=== PATIENT | female | born 2000 | race Caucasian/White ===

== ENCOUNTER 2022-07-27 08:22 | Emergency (ER) | payer MEDICAID, SELFPAY ==
--- NOTE | 2022-07-27 08:25 | W.ED.GENAD ---
Discharge Plan Disposition Patient Disposition: Home Condition: Improving Discharge Details Clinical Impression: Anxiety, Panic attack Primary Care Provider: Cass Salvador ED Provider: Rick Ponce Home Meds and New Rx's Prescriptions: Continued sumatriptan succinate [Imitrex] 25 mg Tablet 25 mg PO DIRECTED famotidine 20 mg Tablet 20 mg PO DAILY ondansetron 4 mg Tablet,Disintegrating 4 mg PO Q6H PRN Discharge Instructions Instructions: Anxiety (ED), Panic Attack (ED) Additional Instructions: Please follow the instructions given to you by the mental health team. Please watch for new or worsening symptoms and return to the ER for any concerns. Lastly, contact your primary care provider on Saturday to discuss your ER visit need for outpatient reevaluation Medical Decision Making This is a 22-year-old female who presents via EMS for anxiety and a panic attack while driving today as today is the 1 year anniversary of her father's . She denies any other acute medical concerns or complaints. Denies SI or HI. Clinically she is tearful but able to speak in full sentences and during my HPI appears to be calming down. She appears nontoxic. Plan is to request a mental health evaluation. I will not obtain any laboratory values as there is no clear indication and I do not believe that it would change the overall disposition and her care. Health evaluation completed, please see their note. Plan to discharge now, they will check in with her over the weekend, and we will set her up with outpatient resources, Saturday. Patient and family comfortable with this plan. Standard discharge and return precautions were provided. Patient understands, is agreeable to this plan, and has no additional questions or concerns upon discharge. This documentation was generated using [employer] system, please disregard any oddities of phrase or misspellings. Sign Out No HPI General Mode of arrival: EMS. Date/Time Provider Initiated Documentation: 07/27/22 08:25. Limitations to Documentation: no limitations. Information obtained by: patient and EMS. HPI Narrative: This is a 22-year-old female presenting via EMS for anxiety attack. Patient states that it is the 1 year anniversary of her father's . She was driving to work, became tearful and anxious, had a panic attack, subsequently called EMS for evaluation. She reports overall she is feeling somewhat better now but is still tearful. Reports a history of a counselor roughly 1 year ago but those services have discontinued. She denies recent illness or trauma. Denies SI or HI. She reports that she feels safe. Related Data Home Medications Medication Instructions Recorded Confirmed famotidine 20 mg tablet 20 mg PO DAILY 07/27/22 07/27/22 ondansetron 4 mg disintegrating 4 mg PO Q6H PRN 07/27/22 07/27/22 tablet sumatriptan succinate 25 mg tablet 25 mg PO DIRECTED 07/27/22 07/27/22 (Imitrex) Allergies Allergy/AdvReac Type Severity Reaction Status Date / Time ketamine Allergy Unverified 07/27/22 08:34 Review of Systems Constitutional Constitutional: Denies fever(s) Cardiovascular Cardiovascular: Denies chest pain and Denies dyspnea Respiratory Respiratory: Denies dyspnea Integumentary/Breasts Skin/Breast: Denies rash Psychiatric Psychiatric: Reports anxiety, Reports depression, Denies homicidal ideation and Denies suicidal ideation PFSH All Active Problems (Updated 07/27/22 @ 10:02 by CLEMENCIA Louie) Anxiety (Chronic) Panic attack (Acute) Social History Smoking/Tobacco Use Status: Former Tobacco Use Smoking risk assessment performed?: Yes Alcohol Intake: current Alcohol Intake frequency: holidays/special occasions only Drug use: Daily Substance use type: marijuana Do you feel safe at home: Yes Do you feel safe in your relationship?: Yes Exam Const General: cooperative, healthy appearing, no acute distress and anxious (Tearful) Orientation: alert, awake and oriented x3 [facility] Head: normal to inspection, normocephalic and atraumatic Face and sinus: normal facial exam Mouth: moist mucous membranes Eyes General: appearance normal, both eyes and all related structures Conjunctivae: conjunctivae normal Neck Neck: normal visual inspection, full ROM, no meningeal signs, trachea midline and supple Resp Effort & Inspection: normal respiratory effort and able to speak in complete sentences Auscultation: clear to auscultation bilaterally Cardio Rate: regular rate Rhythm: regular rhythm Skin General skin exam: no rashes or lesions noted Neuro General: patient alert, patient awake, patient oriented x3, moves all extremities and no focal motor deficits Cognition: normal cognition Speech: speech normal Gait: normal gait Motor: muscle tone normal throughout Sensory Exam: no sensory deficits noted Extrem General: normal to inspection, full ROM and no pedal edema Psych Appearance: grossly normal Mental Status: mental status grossly normal Speech and Movement: speech and movement normal Mood: anxious mood Affect: sad Attitude: cooperative Thought Process: normal Thought Content: normal Insight: insight good Judgment: judgment good
[2022-07-27 08:26] VITALS: BP 135/85; PULSE 99; RESP 28; TEMP 36.9; O2SAT 98
[2022-07-27 08:32] VITALS: RESP 28
--- NOTE | 2022-07-27 10:17 | PDOC.MHCN ---
Date of service: 07/27/22 Time of Service: 10:18 PHQ-9 Over the last 2 weeks, how often have you been bothered by any of the following problems? 1. Little interest or pleasure in doing things: more than half the days 2. Feeling down, depressed, or hopeless: not at all 3. Trouble falling or staying asleep, or sleeping too much: not at all 4. Feeling tired or having little energy: several days 5. Poor appetite or overeating: not at all 6. Feeling bad about yourself - or that you are a failure or have let yourself and your family down: not at all 7. Trouble concentrating on things, such as reading the newspaper or watching television: several days 8. Moving or speaking so slowly that other people could have noticed? - Or the opposite - being so fidgety or restless that you have been moving around a lot more than usual: several days 9. Thoughts that you would be better off or of hurting yourself in some way: not at all Total score: 5 If you checked off any problems, how difficult have these problems made it for you to do your work, take care of things at home, or get along with other people?: somewhat difficult Source: Developed by Drs. Art Breen, Alisa Carias, Tim Bernard and colleagues, with an educational nita from [employer]. Suicide Severity Rate CSSRS Have you wished you were or wished you could go to sleep and not wake up?: No Have you actually had any thoughts of killing yourself?: No CSSRS4 Was this within the past three months?: No Screening Score Total Score: 0 Screening: Negative Mental Health Emergency Note Release [facility] release signed:: Yes Reason for Visit Client arrived to [facility] ED on 07.27.2022 after experiencing a panic attack on her way into work thinking about the anniversary of her father's passing. Client stated he passed as a result of diverticulitis and acute leukemia and as he did during the COVID pandemic she was not able to say goodbye to him. In the last 2 weeks has the pt presented for ES prior to today?: No Client Information Client is: New Well Housed: Yes Non Suicidal Self Injury Current: No History: No Safety Risk/Harm to Self or Others Current Ideation to Harm Self or Others: No Risk: Does risk to harm exist?: No Duty to warn indicated: No Asssessment/Mental Status Appearance: Well groomed Attitude: Cooperative and Friendly Behavior: Unremarkable Speech: Normal Affect: Flat and Cogruent with mood Mood: Sad and Anxious Thought process: Goal directed Hallucinations: No Delusions: No Attention: Unremarkable Perception: Not impaired Orientation: Fully orientated Memory: Intact Insight: Good Judgement: Good Neurovegetative Symptoms Sleep: No change Appetitie: No change Interests: Decrease Energy: No change Libido: Not applicable Substance Use: Do you use nicotine?: No Have you used substances in the last 7 days?: No Additional Issues: Assaultive/Threatening Behavior: No Medical Concerns: No Client engaged in active self harm w/weapon: No Threatening to run away: No Child reported abuse/neglect: No Voluntarily presenting for services: Yes Domestic violence is a concern: No Extreme Psychosis or extreme behavior is present: No Impression Client is a 22 year old, single, female who lives with her boyfriend in [place] [facility] [facility] and works at [employer] in [place] [facility]. She is attending on [employer]. Client presented to he ED due to experiencing a panic attack which was brought on by thoughts about her father's 1 year anniversary of his . She has no history of anxiety or panic attacks per her report. Her sudden onset of a panic attack suggest a generalized anxiety disorder. Client is new to [facility] and [facility] and was open to intake and referrals. Resources Reosurces reviewed and given:: [facility] and [facility] Plan/Disposition Recommended Disposition: [facility] Services [facility] Services: Therapy. Plan: Client is open to restarting counseling and having this clinician do a referral. She will do daily check in calls to [facility] through the weekend with an assessment on Saturday to see if she would like to continue them. Person reported agreement to plan: Yes Reports/communication Outcome discussed with: ED/Personnel
--- OUTSIDE RECORDS SUMMARY | 2022-07-27 10:49 | XMS_ITS | Encounter Summary ---
:2000 Author Organization [facility] [place] [address] Care Team Providers Name Role Phone Russell Oneil MD Primary Care Provider Encounter Details Date Type Department Care Team Description 05/26/2020 Refill Dermatology at [facility] Charo Ramirez, BAKERY SALES CLERK [address] [place] [address] Social History Tobacco Use Types Packs/Day Years Used Date Smoking Tobacco: Never Smokeless Tobacco: Former Comments: no smoke exposure Alcohol Use Standard Drinks/Week Comments No 0 (1 standard drink = 0.6 oz pure alcoho l) Sex Assigned at Date Recorded Not on file documented as of this encounter Plan of Treatment Not on filedocumented as of this encounter Visit Diagnoses Not on filedocumented in this encounter Care Teams Credit Rating Inspector Relationship Specialty Start Date End Date Russell Oneil MD PCP - General 03/29/14 02/22/[address] [place] [id number] documented as of this encounter
--- OUTSIDE RECORDS SUMMARY | 2022-07-27 10:49 | XMS_ITS | Encounter Summary ---
:2000 Author Organization [facility] [place] [address] Care Team Providers Name Role Phone Russell Oneil MD Primary Care Provider Reason for Visit Reason Comments Follow-up Encounter Details Date Type Department Care Team Description 10/28/2018 Office Visit Dermatology at [facility], Acne vu lgaris; Sully GOINS Ruptured epidermal cyst [address] [facility] D[facility]MATOLOG[facility] [place], [place] [id number] [phone] Social History Tobacco Use Types Packs/Day Years Used Date Smoking Tobacco: Never Smokeless Tobacco: Former Comments: no smoke exposure Alcohol Use Standard Drinks/Week Comments No 0 (1 standard drink = 0.6 oz pure alcoho l) Sex Assigned at Date Recorded Not on file documented as of this encounter Progress Notes [facility] MD - 10/28/2018 1:00 PM EST Problem: 1. Follow-up acne vulgaris controlled now with Bactrim double strength 1 p.o. once daily 2. History of furuncles axillary vaults intramammary chest 3. Status post 5-month course of isotretinoin completed September 2015 4. 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 She was seen by Dr. Oneil this morning after we had yesterday set up today's appointment for an I&D at 1 PM. He is prescribed an antibiotic for her to take, Bactrim. Physical examination reveals a painful enlarged indurated follicular cyst in the left axillary vault. Assessment plan: Ruptured follicular cyst left axillary vault 1. After obtaining consent site was anesthetized and an I&D performed. Copious amounts of purulent material were drained. Patient tolerated well 2. Recommend the patient take Bactrim double strength 1 p.o. twice daily return to clinic in 2 weeksfor repeat check. 3. Wound care instructions and supplies given. Continue spironolactone. CC: Russell Oneil MD documented in this encounter Plan of Treatment Not on filedocumented as of this encounter Visit Diagnoses Diagnosis Acne vulgaris Other acne Ruptured epidermal cyst Sebaceous cyst documented in this encounter Care Teams Tip Fixer Relationship Specialty Start Date End Date Russell Oneil MD PCP - General 03/29/14 02/22/22 [address] [place] [address] documented as of this encounter
--- OUTSIDE RECORDS SUMMARY | 2022-07-27 10:49 | XMS_ITS | Encounter Summary ---
:2000 Author Organization [facility] [place] [address] Care Team Providers Name Role Phone Russell Oneil MD Primary Care Provider Encounter Details Date Type Department Care Team Description 04/24/2021 Office Visit Allergy at [facility] Grazyna Giang Anaphylaxis, initial [facility] [place] [address] ALLERGY DEPT [phone] [place] [id number] Social History Tobacco Use Types Packs/Day Years Used Date Smoking Tobacco: Never Smokeless Tobacco: Never Comments: no smoke exposure Alcohol Use Standard Drinks/Week Comments No 0 (1 standard drink = 0.6 oz pure alcoho l) Sex Assigned at Date Recorded Not on file documented as of this encounter Last Filed Vital Signs Vital Sign Reading Time Taken Comments Blood Pressure 130/88 04/24/2021 3:19 PM EDT Pulse 64 04/24/2021 3:19 PM EDT Temperature - - Respiratory Rate - - Oxygen Saturation 100% 04/24/2021 3:19 PM EDT Inhaled Oxygen Concentration - - Weight - - Height - - Body Mass Index - - documented in this encounter Patient Instructions Patient InstructionsGrazyna Giang MD - 04/24/2021 4:00 PM EDT Pataday 0.1% 1 drop in each eye up to twice a day. documented in this encounter Progress Notes Grazyna Giang MD - 04/24/2021 4:00 PM EDT [facility] Section of Allergy and Clinical Immunology Date of Service: 04/24/21 Primary Care Provider: Russell Oneil MD Patient Age: 20 y.o. 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 She reports nasal congestion in the spring and fall. Her mouth and tongue sometimes become itchy. She was recently bit by a cat and is currently undergoing rabies vaccines. She had her first dose onSaturday, second on Saturday, then will receive a 3rd duncan this Saturday, then last dose next Saturday. She received both doses of Pfizer vaccine, December 14 and January 04, without issues. She recently went to [place] with a friend. She ate steak, potato with christensen and cheese, moo slaw, broccoli soup. Mouth and face started getting itchy, then face puffy. She took Benedryl right assoon itchy. It took about 2-3 ours for symptoms to improve. No alcohol. No NSAIDs. She has moved into her new place and does not feel as congested. Her horses are now at her uncle's place, dogs and cats in parents' home. She rides the horses once every 2 weeks and denies symptoms. She reported a reaction to ketamine when she was 14 years old. She went to the ED for stitches and she reports that she stopped breathing with ketamine. She recalled bruising from CPR. She has tolerated MAC sedation with propofol December 31, 2016 for EGD and colonoscopy. Her tongue, lip and palatae becomes itchy with ingestion of tomatoes (raw>cooked), blood oranges,navel oranges. Raw carrots are fine. At [facility], Skin prick positive to D. Farinae (dust mite), cat, AP dog, cockroach, grass pollen, tree pollen (including [place] and poplar), nettle weed pollen, molds (Aspergillus and Cladosporium), rabbit,feathers. Past Medical History: Diagnosis Date ??? Allergic state ketamine ??? Chronic pelvic pain in female 10/14/2016 ??? Eczema 10/07/2016 ??? 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 Headache ??? Hirsutism 10/14/2016 Excess hair on chest and linea alba, but face is spared. ??? Pneumonia ??? Vision abnormalities Past Surgical History: Procedure Laterality Date ??? KNEE CARTILAGE SURGERY Left ??? PRO COLONOSCOPY, BIOPSY N/A 12/31/2016 COLONOSCOPY FLEXIBLE, WITH BX (WRVU 3.66) performed by Jennifer Lion MD at [facility] END[facility]COPY ??? PRO COLONOSCOPY, DIAGNOSTIC N/A 12/31/2016 PEDIATRIC COLONOSCOPY performed by Jennifer Lion MD at [facility] ??? PRO UPPER GI ENDOSCOPY, DIAGNOSTIC N/A 12/31/2016 EGD, UPPER GI ENDOSCOPY performed by Jennifer Lion MD at [facility] ??? WRIST SURGERY Outpatient Medications Marked as Taking for the 04/24/21 encounter (Office Visit) with Grazyna Giang MD Medication Sig Dispense Refill ??? sertraline (Zoloft) 50 mg Tablet TAKE 1 TABLET BY MOUTH DAILY ??? norelgestrom-ethinyl estradiol (ORTHO EVRA) 150-35 mcg/24 hr Patch Weekly Use as directed 3 patch 3 ??? triamcinolone (KENALOG) 0.1 % Cream Apply to eczema rash twice daily as needed until clear 15 g 1 ??? polyethylene glycol (MIRALAX) 17 gram/dose Powder 0 Allergies Allergen Reactions ??? Ketamine ??? Pollen Extracts Other (See Comments) Family History Problem Relation Age of Onset ??? Depression Mother ??? Heart Disease Mother PVCs ??? Hearing Loss Mother ??? Allergic Rhinitis Mother ??? Urticaria Mother ??? Food Allergy Mother ??? Hyperlipidemia Father ??? Hypertension Maternal Grandfather ??? Obesity Maternal Grandfather ??? Cancer Maternal Grandmother Brain ??? Heart Disease Maternal Grandmother ??? Hypertension Maternal Grandmother ??? Substance Use Disorder Maternal Grandmother ??? Diabetes Paternal Grandmother ??? Hypertension Paternal Grandmother ??? Allergic Rhinitis Brother ??? Ulcerative Colitis Neg Hx ??? Crohn Disease Neg Hx ??? Autoimmune Disorder Neg Hx ??? Thyroid Disease Neg Hx Social History Tobacco Use ??? Smoking status: Never Smoker ??? Smokeless tobacco: Never Used ??? Tobacco comment: no smoke exposure Vaping Use ??? Vaping Use: Never used Substance Use Topics ??? Alcohol use: No ??? Drug use: No Status: Single. Review of Systems: General: denies any fever, fatigue, chills, unintentional weight gain, night sweats. Eyes: +itchy, +red eyes. Denies any ocular discharge, blurriness, dryness. Ears: denies any pain, pressure, fullness, +pruritus, +tinnitus Nose: denies nasal congestion, post nasal drip, +sneezing, +nosebleeds, snoring. Denies a history ofnasal polyps, loss of smell Mouth/throat: denies loss of taste, mouth sores, bad breath, itchy mouth, itchy throat, difficulty swallowing. GI: denies any heartburn or reflux, food regurgitation, nausea/vomiting, diarrhea, +abdominal pain, +constipation. Respiratory: +cough, wheezing, shortness of breath, trouble with exercise, snoring, hemoptysis. Cardiovascular: denies any chest pain, arrhythmia. : +irregular periods. denies any difficulty with urination, dysuria, hematuria, kidney stones. Skin: +eczema, hives and angioedema MSK: denies any muscle aches, joint pains, bone pain. Neurologic: +headaches, +numbness, weakness, stroke or +LOS. Psychiatric: denies any anxiety or depression. Endocrine: Denies any heat or cold intolerance, excessive thirst or urination. Hematologic: +easy bruising Environmental History: Pets in the home: dogs (5), cats (4) and horse 3. She is in the process of renovating her home. Objective: BP 130/88 Pulse 64 SpO2 100% No flowsheet data found. Wt Readings from Last 3 Encounters: 01/19/21 85.7 kg (188 lb 15 oz) 01/17/21 85.7 kg (188 lb 15 oz) 01/10/21 85.7 kg (189 lb) Gen: awake, alert, no acute distress Head: normocephalic, atraumatic EYES: Conjunctiva not injected or icteric. No discharge. No eyelid edema. ENT: Nasal passages show normal mucosa, edematous turbinates bilaterally, no lesions. OP mucosa wellhydrated, clear without erythema. No lesions or exudates. No visible OP edema. NECK: supple, symmetric, no masses, trachea midline LYMPH: no submandibular, cervical, or supraclavicular LAD CVS: RRR LUNGS: CTAB, no wheezing or crackles, breathing unlabored ABD: non-distended, bowel sounds present SKIN: no rashes, normal color EXTREMITIES: warm and well-perfused, normal bulk, symmetric ROM. NEURO: EOMI, no dysarthria PSYCH: normal grooming, appropriate mood and affect, normal volume/quantity/tone of speech, normal thought process and content Assessment and Plan: Ivon Mcqueen is a 20 y.o. woman with a history of rashes seen for follow-up visit regarding allergic rhinoconjunctivitis. She recently had an episode of facial swelling during dinner. I have asked her to find out the ingredients in the meal for us to review. For nasal congestion and rhinitis, I recommend continuing Flonase Sensimist 2 sprays per nostril daily. For allergic conjunctivitis, she may used Pataday 0.1% 1 drop in each eye up to twice a day (available over the counter) For environmental allergies, we reviewed allergen avoidance, including use of dust mite encasings onthe mattress and pillow and washing the bed linens weekly in hot water, keeping pets out of the bedroom and using a HEPA filter in the bedroom, showering and washing the hair before bed, keeping windows closed, and avoiding drying laundry outdoors during pollen seasons. All questions were answered, and patient expressed understanding of the plan. Thank you for the opportunity to participate in the care of your patient. Ongoing follow-up with thepatient's primary care physician is recommended and encouraged. If I can provide any further assistance, please do not hesitate to contact me. Next visit (studies planned): Return for follow-up visit in 3 months. Grazyna Sanchez MD Soaker Helper, Allergy and Clinical Immunology [place] [phone] [email or web address] documented in this encounter Plan of Treatment Not on filedocumented as of this encounter Visit Diagnoses Diagnosis Anaphylaxis, initial encounter documented in this encounter Care Teams Caramel Cutter Helper Relationship Specialty Start Date End Date Russell Oneil MD PCP - General 03/29/14 02/22/[address] [place] [id number] documented as of this encounter
--- OUTSIDE RECORDS SUMMARY | 2022-07-27 10:49 | XMS_ITS | Encounter Summary ---
:2000 Author Organization [facility] [place] [address] Care Team Providers Name Role Phone Russell Oneil MD Primary Care Provider Reason for Referral Consultation (Routine) - Specialty Diagnoses / Procedures Referred By Contact Refer red To Contact Orthotics Diagnoses Right foot pain EDS (Matthew-Danlos syndrome) [place] [address] Referral ID Status Reason Start Date Expiration Date Visits V isits Requested Authorized [id number] Consult, 09/27/2020 03/26/2021 1 1 Test & Treat Non [facility] onsultation (Routine) - Closed Specialty Diagnoses / Procedures Referred By Contact Refer red To Contact Neurology Diagnoses Right foot pain EDS (Matthew-Danlos syndrome) Pardeep Jacobo MD [facility] [place] [address] [place] [address] [phone] [place] [id number] Referral ID Status Reason Start Date Expiration Date Visits V isits Requested Authorized [id number] Closed Consult, 09/27/2020 09/27/2021 1 1 Test & Treat Encounter Details Date Type Department Care Team Description 09/27/2020 Orders Only Orthopaedics at [facility] Pardeep Jacobo MD [facility] EDS (Matthew-Danlos syndrome) [place] [address] ORTHOPAEDIC [phone] SUR[place], [place] [address] Social History Tobacco Use Types Packs/Day Years Used Date Smoking Tobacco: Never Smokeless Tobacco: Former Comments: no smoke exposure Alcohol Use Standard Drinks/Week Comments No 0 (1 standard drink = 0.6 oz pure alcoho l) Sex Assigned at Date Recorded Not on file documented as of this encounter Plan of Treatment Scheduled Referrals Name Type Priority Associated Diagnoses Order S chedule Referral to Outpatient Referral Routine Right foot p ain Ordered: Neurology EDS (Matthew-Danlos 1 syndrome) Referral for Outpatient Referral Routine Right foot p ain Ordered: Orthotics EDS (Matthew-Danlos 1 syndrome) documented as of this encounter Visit Diagnoses Diagnosis Right foot pain Pain in limb EDS (Matthew-Danlos syndrome) Matthew-Danlos syndrome documented in this encounter Care Teams Transit Operations Supervisor Relationship Specialty Start Date End Date Russell Oneil MD PCP - General 03/29/14 02/22/22 8 [place] [address] documented as of this encounter
--- OUTSIDE RECORDS SUMMARY | 2022-07-27 10:49 | XMS_ITS | Encounter Summary ---
:2000 Author Organization [facility] [place] [address] Care Team Providers Name Role Phone Russell Oneil MD Primary Care Provider Encounter Details Date Type Department Care Team Description 09/05/2020 Refill Dermatology at [facility] Charo Ramirez, FLOOR COVERING PRINTER ASSISTANT [address] [place] [address] Social History Tobacco Use [...] on filedocumented in this encounter Care Teams Key Punch Operator Relationship Specialty Start Date End Date Russell Oneil MD PCP - General 03/29/14 02/22/[address] [place] [address] documented as of this encounter
--- OUTSIDE RECORDS SUMMARY | 2022-07-27 10:49 | XMS_ITS | Encounter Summary ---
:2000 Author Organization [facility] [place] [address] Care Team Providers Name Role Phone Russell Oneil MD Primary Care Provider Encounter Details Date Type Department Care Team Description 01/17/2021 Hospital Encounter XRay at [facility] Pardeep Jacobo MD Right foot pain [address] [place] [phone] ORTHOPAEDIC [phone] SURGERY [place], [place] [address] Social History Tobacco Use Types Packs/Day Years Used Date Smoking Tobacco: Never Smokeless Tobacco: Never Comments: no smoke exposure Alcohol Use Standard Drinks/Week Comments No 0 (1 standard drink = 0.6 oz pure alcoho l) Sex Assigned at Date Recorded Not on file documented as of this encounter Medications at Time of Discharge Medication Sig Dispensed Refills Start Date End Date ISOtretinoin (ACCUTANE) 40 Take one tablet by 60 capsule 0 0 01/06/2021 mg CapsuleIndications: mouth twice daily Acne vulgaris norelgestrom-ethinyl Use as directed 3 patch 3 02/10/2019 estradiol (ORTHO EVRA) 150-35 mcg/24 hr Patch WeeklyIndications: Polycystic ovary syndrome triamcinolone (KENALOG) Apply to eczema rash 15 g 1 0.1 % Cream twice daily as needed until clear polyethylene glycol 0 12/03/2017 (MIRALAX) 17 gram/dose Powder documented as of this encounter Plan of Treatment Not on filedocumented as of this encounter Procedures Procedure Name Priority Date/Time Associated Diagnosis Comme nts XR FOOT/ANKLE 5 Routine 01/17/2021 9:18 AM Right foot pain Res ults for this VIEWS RIGHT EDT procedure are i n the results section. documented in this encounter Results XR Foot/Ankle 5 Views Right (01/17/2021 9:18 AM EDT) Anatomical Region Laterality Modality Foot, Ankle Right Digital Radiography Specimen (Source) Anatomical Location Collection Method / Collectio n Time Received Time / Laterality Volume Impressions 01/17/2021 9:32 AM EDT Normal right foot and right ankle Thank you for letting us participate in the care of this patient. ??If you are a health care provider and have any questi ons regarding this report, please contact the number below. ??For patients who have questions please contact the health client care representative that requested your imaging first. ? Narrative 01/17/2021 9:32 AM EDT EXAMINATION: XR FOOT/ANKLE 5 VIEWS RIGHT CLINICAL HISTORY: right foot and ankle p ain TECHNIQUE: 5 views RIGHT foot and ankle COMPARISON: 06/26/2019 FINDINGS: Bones are intact. Joint spacing and alig nment normal. Specifically, normal appearance of the ankle mortise and the talar dome. There is no joint effusion. Soft tissues normal. Procedure Note Wagner Nelson MD - 01/17/2021Format ting of this note might be different from the original. EXAMINATION: XR FOOT/ANKLE 5 VIEWS RIGHT CLINICAL HISTORY: right foot and ankle p ain TECHNIQUE: 5 views RIGHT foot and ankle COMPARISON: 06/26/2019 FINDINGS: Bones are intact. Joint spacing and alig nment normal. Specifically, normal appearance of the ankle mortise and the talar dome. There is no joint effusion. Soft tissues normal. IMPRESSION Normal right foot and right ankle Thank you for letting us participate in the care of this patient. If you are a health care provider and have any questi ons regarding this report, please contact the number below. For patients w ho have questions please contact the health client care representative that requested your imaging first. Pardeep Jacobo MD IMG DX ORDERABLES documented in this encounter Visit Diagnoses Diagnosis Right foot pain Pain in limb documented in this encounter Care Teams Venetian Blind Maker Relationship Specialty Start Date End Date Russell Oneil MD PCP - General 03/29/14 02/22/22 8 [place] [address] documented as of this encounter
--- OUTSIDE RECORDS SUMMARY | 2022-07-27 10:49 | XMS_ITS | Encounter Summary ---
:2000 Author Organization [facility] [place] [address] Care Team Providers Name Role Phone Russell Oneil MD Primary Care Provider Reason for Visit Reason Onset Date Comments Other 01/30/2018 Encounter Details Date Type Department Care Team Description 01/30/2018 Telephone [place]ology [place] [facility] Farrah [place], [place] [address] Social History Tobacco Use Types Packs/Day Years Used Date Smoking Tobacco: Never Smokeless Tobacco: Former Alcohol Use Standard Drinks/Week Comments No 0 (1 standard drink = 0.6 oz pure alcoho l) Sex Assigned at Date Recorded Not on file documented as of this encounter Miscellaneous Notes Telephone Encounter - Farrah Betts RN - 01/31/2018 9:44 AM EDT I spoke with Mom and she agrees with getting an Xray and would like requisition sent to [facility]. Advised that Ivon rest, ice, and elevate her ankle this weekend. Likely will not have results until Saturday. Ivon also has an air cast that is helping with discomfort and she will use Aleve for discomfort as well. Telephone Encounter - Farrah Betts RN - 01/30/2018 3:24 PM EDT Mom reports that she went to see PCP and was directed to a PA by the name of Audrey Adam and Mom states she did not evaluate Ivon and was told that she needs to see someone in Rheumatology and told Mom that her visit today would not be paid for by her insurance for just ankle pain. Mom is frustratedand wants to know if Dr. Navarro can see Ivon possibly tomorrow or does he think she should have labsOr Xrays done closer to home. Telephone Encounter - Farrah Betts RN - 01/30/2018 10:40 AM EDT Call received from Mom stating that Ivon went out jogging the other day and now she is complaining of pain in her Left Ankle, Arch of Foot, and Achilles. Mom reports some swelling. Reports that she is wearing a light lace up brace which actually makes itfeel worse. Wants recommendations on what to do. Advised she could use ice and elevation but would also like her to be evaluated by PCP to make sure there is no injury. Mom agrees and will contact PCP and call us with an update. documented in this encounter Plan of Treatment Not on filedocumented as of this encounter Visit Diagnoses Not on filedocumented in this encounter Care Teams Emergency Medical Service Coordinator Relationship Specialty Start Date End Date Russell Oneil MD PCP - General 03/29/14 02/22/[address] [place] [address] documented as of this encounter
--- OUTSIDE RECORDS SUMMARY | 2022-07-27 10:49 | XMS_ITS | Encounter Summary ---
:2000 [place] [address] Care Team Providers Name Role Phone Russell Oneil MD Primary Care Provider Encounter Details Date Type Department Care Team Description 03/27/2018 Telephone Pediatric Endocrinology at M[facility] Azevedo [facility] An[facility] [place] [address] PEDIATRIC ENDOCRINOLOGY [phone] [place] [id number] (Wo rk) Social History Tobacco Use Types Packs/Day Years Used Date Smoking Tobacco: Never Smokeless Tobacco: Former Alcohol Use Standard Drinks/Week Comments No 0 (1 standard drink = 0.6 oz pure alcoho l) Sex Assigned at Date Recorded Not on file documented as of this encounter Miscellaneous Notes Telephone Encounter - Bailee Azevedo MD - 04/11/2018 12:41 PM EDT Spoke to mom. She is willing to try combined OCP. If jazz does not tolerate this, we will try to push the xulane patches through her insurance again. Telephone Encounter - Bailee Azevedo MD - 03/27/2018 10:37 AM EDT Ordered Thank you! Telephone Encounter - Grazyna Pantoja RN - 03/27/2018 10:23 AM EDT Spoke with mom, states pain is better today. As a result, mom would like to hold off, but reserve the option for the ultrasound if bad again next month. Could we send her an order and she could schedule at a local hospital PRN? Telephone Encounter - Bailee Azevedo MD - 03/27/2018 9:33 AM EDT Please check in with mom if she is still having abdominal pain. (this call was accidentally routed to taco stevenson). If so, we could obtain PUS, though it won't pack changer. It would just confirm ifthese pains are due to a ruptured cyst. We could fax an order to where they would go to have it doneand see if radiology could do it today. Telephone Encounter - Bailee Azevedo MD - 03/27/2018 9:33 AM EDT ----- Message from Kori Blue sent at 03/26/2018 12:54 PM EDT ----- Contact: Caitlyn Pena ----- Message ----- From: Renee Mejia RN Sent: 03/26/2018 12:22 PM To: Kori Blue ----- Message ----- From: Kori Blue Sent: 03/26/2018 12:17 PM To: Tahir Stevenson Nurse Provider: Gael Wong Last time they were in to see her --she told her that nexttime she was feeling pains in abdomen, to give her a call to find out if she needed to have an ultrasound to see if they were cysts that were bursting. Shari is currently feeling those symptoms. documented in this encounter Plan of Treatment Not on filedocumented as of this encounter Visit Diagnoses Diagnosis PCOS (polycystic ovarian syndrome) Polycystic ovaries documented in this encounter Care Teams Maintenance Chief Relationship Specialty Start Date End Date Russell Oneil MD PCP - General 03/29/14 02/22/22 8 [place] [address] documented as of this encounter
--- OUTSIDE RECORDS SUMMARY | 2022-07-27 10:49 | XMS_ITS | Encounter Summary ---
:2000 Author Organization [facility] [address] Care Team Providers Name Role Phone Russell Oneil MD Primary Care Provider Encounter Details Date Type Department Care Team Description 01/11/2021 Orders Only Orthopaedics at [facility] Pardeep Jacobo MD Right foot pain [facility] [place] [address] ORTHOPAEDIC SURG [place] [id number] (Wo rk) Social History Tobacco Use Types Packs/Day Years Used Date Smoking Tobacco: Never Smokeless Tobacco: Never Comments: no smoke exposure Alcohol Use Standard Drinks/Week Comments No 0 (1 standard drink = 0.6 oz pure alcoho l) Sex Assigned at Date Recorded Not on file documented as of this encounter Plan of Treatment Not on filedocumented as of this encounter Results XR Foot/Ankle 5 Views [...] who have questions please contact the health vision care associate that requested your imaging first. ? Electronically signed by: Wagner Nelson MD, [facility] ([phone]), at 01/17/2021 9:32 AM Narrative 01/17/2021 9:32 AM EDT EXAMINATION: XR [...] ho have questions please contact the health vision care associate that requested your imaging first. Electronically signed by: Wagner Nelson MD, [facility] ([phone]), at 01/17/2021 9:32 AM Pardeep Jacobo MD IMG DX ORDERABLES documented in this encounter Visit Diagnoses Diagnosis Right foot pain Pain in limb Right foot pain Pain in limb documented in this encounter Care Teams Backup Sawyer Relationship Specialty Start Date End Date Russell Oneil MD PCP - General 03/29/14 02/22/[address] [place] [address] documented as of this encounter
--- OUTSIDE RECORDS SUMMARY | 2022-07-27 10:49 | XMS_ITS | Encounter Summary ---
:2000 Author Organization [place] [address] Care Team Providers Name Role Phone Russell Oneil MD Primary Care Provider Reason for Visit Reason Comments Acne Encounter Details Date Type Department Care Team Description 08/05/2020 Office Visit Dermatology at [facility] Geovani Doyle MD Acne vulgaris [address] [facility] [address] [place] [address] DERMATOLOGY [phone] [place], [place] [address] (Wo rk) Social History Tobacco Use Types Packs/Day Years Used Date Smoking Tobacco: Never Smokeless Tobacco: Former Comments: no smoke exposure Alcohol Use Standard Drinks/Week Comments No 0 (1 standard drink = 0.6 oz pure alcoho l) Sex Assigned at Date Recorded Not on file documented as of this encounter Progress Notes Geovani oDyle MD - 08/05/2020 8:15 AM EST Problem: 1. ??Follow-up probable hidradenitis suppurativa, axillary vaults 2. ??Acne vulgaris controlled with Bactrim double strength 1 p.o. twice daily 3. 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 ??Status post 5-month course of isotretinoin completed September 2015 5. ??Being followed by [facility] endocrinology for pre-PCOS, treated??with Spironolactone 100 mg??twice daily 6. History of Matthew Danlos syndrome Ivon follows up because of worsening adult acne. She is now 20. The acne continues despite Bactrim double strength 1 p.o. daily and despite spironolactone that she takes for her polycystic ovarian syndrome. She has seen Dr. Oneil on a number of occasions to have cysts drained. 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 She has no plans for trips when I believe in the area anytime soon. She is currently not sexually active but may become so in the next 5 months and so wants to go wants togo back on a hormonal patch prior to starting Accutane. That had worked well for her in the past. Isotretinoin has been prescribed for her previously 2014 and it worked well. She is not having any issues on the submammary chest nor in the inguinal folds. Physical examination reveals a pleasant 20-year-old who has moderate inflammatory acne along the jawline the lateral neck and some some mild involvement of the upper presternal chest the back and the axillary vaults. May the neck sites are borderline scarring. Assessment and plan: Acne vulgaris adult 1. Patient weighs 80 kg in 1 month we will start on isotretinoin 40 mg 1 p.o. twice daily 2. Today patient was given the I pledge booklet and reviewed I pledge program guidelines with her. 3. Obtained urine test which was negative for 4. Patient will see her PCP Russell Oneil for initiation of hormonal patch BORA. Secondary method will be male latex condom 5. Patient was registered today on I pledemandmarte, return to clinic in 1 month to to start medication. Discontinue Bactrim 1 week prior to next visit. May continue spironolactone on isotretinoin. CC: Russell Oneil MD documented in this encounter Plan of Treatment Not on filedocumented as of this encounter Visit Diagnoses Diagnosis Acne vulgaris Other acne documented in this encounter Care Teams Compress Machine Operator Relationship Specialty Start Date End Date Russell Oneil MD PCP - General 03/29/14 02/22/[address] [place] [address] documented as of this encounter
--- OUTSIDE RECORDS SUMMARY | 2022-07-27 10:49 | XMS_ITS | Encounter Summary ---
:2000 Author Organization [facility] [place] [address] Care Team Providers Name Role Phone Russell Oneil MD Primary Care Provider Encounter Details Date Type Department Care Team Description 01/24/2021 Telephone Allergy at [facility] [place] [address] Social History Tobacco Use Types Packs/Day Years Used Date Smoking Tobacco: Never Smokeless Tobacco: Never Comments: no smoke exposure Alcohol Use Standard Drinks/Week Comments No 0 (1 standard drink = 0.6 oz pure alcoho l) Sex Assigned at Date Recorded Not on file documented as of this encounter Miscellaneous Notes Telephone Encounter - Fortunato Clemens RN - 01/24/2021 11:46 AM EDT Skin test performed 01/19/[address] Alfredo Sanchez Telephone Encounter - Fortunato Clemens RN - 01/24/2021 11:46 AM EDT ----- Message from Suly Garvey sent at 01/17/2021 10:53 AM EDT ----- Regarding: Austin Del Valle is having skin prick testing on and she would like to know if she can use her steroid cream today. She can be reached at [phone]. documented in this encounter Plan of Treatment Not on filedocumented as of this encounter Visit Diagnoses Not on filedocumented in this encounter Care Teams Feather Boner Relationship Specialty Start Date End Date Russell Oneil MD PCP - General 03/29/14 02/22/22 8 [place] [address] documented as of this encounter
--- OUTSIDE RECORDS SUMMARY | 2022-07-27 10:49 | XMS_ITS | Encounter Summary ---
:2000 Author Organization [facility] [place] [address] Care Team Providers Name Role Phone Russell Oneil MD Primary Care Provider Reason for Visit Reason Comments Medication Refill Encounter Details Date Type Department Care Team Description 08/11/2020 Refill Dermatology at [facility] Geovani Cortes MD [address] [facility] [address] [place] [address] DERMATOLOGY [phone] [place], [place] [address] (Wo rk) Social History [...] on filedocumented in this encounter Care Teams Flat Spring Assembler Relationship Specialty Start Date End Date Russell Oneil MD PCP - General 03/29/14 02/22/22 8 [place] [address] documented as of this encounter
--- OUTSIDE RECORDS SUMMARY | 2022-07-27 10:49 | XMS_ITS | Encounter Summary ---
:2000 Author Organization [facility] [place] [address] Care Team Providers Name Role Phone Cass Salvador Primary Care Provider Reason for Visit Reason Comments Medication Refill Encounter Details Date Type Department Care Team Description 01/12/2019 Refill Dermatology at [facility] Geovani Cortes MD [address] [facility] [address] [place] [address] DERMATOLOGY [phone] [place], [place] [address] (Wo rk) Social History [...] on filedocumented in this encounter Care Teams Marine Resource Economist Relationship Specialty Start Date End Date Cass Salvador PA PCP - General Family Medicine 02/23/[address] [place] [id number] documented as of this encounter
--- OUTSIDE RECORDS SUMMARY | 2022-07-27 10:49 | XMS_ITS | Encounter Summary ---
:2000 Author Organization [facility] [place] [address] Care Team Providers Name Role Phone Cass Salvador Primary Care Provider Reason for Visit Reason Comments Medication Refill Encounter Details Date Type Department Care Team Description 09/10/2019 Refill Pediatric Endocrinol ogy at [facility] Gael-Bailee Wong, Hirsutism [facility] [place] [address] [facility] [phone] PEDIATRIC ENDOCR INOLOGY [place], [place] [address] (Wo rk) Social History Tobacco Use Types Packs/Day Years Used Date Smoking Tobacco: Never Smokeless Tobacco: Former Comments: no smoke exposure Alcohol Use Standard Drinks/Week Comments No 0 (1 standard drink = 0.6 oz pure alcoho l) Sex Assigned at Date Recorded Not on file documented as of this encounter Plan of Treatment Not on filedocumented as of this encounter Visit Diagnoses Diagnosis Hirsutism documented in this encounter Care Teams Siebel Consultant Relationship Specialty Start Date End Date Cass Salvador PA PCP - General Family Medicine 02/23/[address] [place] [id number] documented as of this encounter
--- OUTSIDE RECORDS SUMMARY | 2022-07-27 10:49 | XMS_ITS | Encounter Summary ---
:2000 Author Organization [facility] [place] [address] Care Team Providers Name Role Phone Russell Oneil MD Primary Care Provider Reason for Visit Reason Comments Follow-up Allergies Encounter Details Date Type Department Care Team Description 01/19/2021 Office Visit Allergy at [facility] Alfredo Sanchez, Environmental and seasonal a llergies (Primary Dx); [facility] Grazyna Tran MD Rash; [facility] rhinitis; [facility] [address] [place] [id number] ALLERGY DEPT [phone] [place] [address] Social History Tobacco Use Types Packs/Day Years Used Date Smoking Tobacco: Never Smokeless Tobacco: Never Comments: no smoke exposure Alcohol Use Standard Drinks/Week Comments No 0 (1 standard drink = 0.6 oz pure alcoho l) Sex Assigned at Date Recorded Not on file documented as of this encounter Last Filed Vital Signs Vital Sign Reading Time Taken Comments Blood Pressure 145/84 01/19/2021 10:23 AM EDT Pulse 80 01/19/2021 10:23 AM EDT Temperature - - Respiratory Rate - - Oxygen Saturation 100% 01/19/2021 10:23 AM EDT Inhaled Oxygen Concentration - - Weight 85.7 kg (188 lb 15 oz) 01/19/2021 10:23 AM EDT Height - - Body Mass Index 32.43 01/17/2021 9:31 AM EDT documented in this encounter Patient Instructions Patient InstructionsGrazyna Giang MD - 01/19/2021 10:30 AM EDT Flonase Sensimist 2 sprays per nostril daily Cetirizine once a day ALLERGY SEASONS & AVOIDANCE: Dust mites: Year-round, especially Fall 1. Dust mite encasings, pillow and mattress ([employer]) 2. Wash bedding (linens, not dust mite cases) in hot water (no hotter than 120 F) 3. Humidity control, 30-50% 4. Minimize carpet and stuffed animal exposure Animals: Year-round 1. Minimize animal allergen exposure 2. Removal or -- regular baths/wiping of animal once per week -- exclusion from the bedroom -- HEPA filter in bedroom and living area -- Consider allergen pillow and mattress casings. Molds: Year-round, especially Fall 1. Remove obvious mold 2. Minimize moisture / leaks 3. Humidity control, 30-50% 4. Additional resources on indoor air quality: https://www.epa.gov/mold/bhd-nonlbw-yjz-fwmbse-uzvs-rwhzn-mold https://www.epa.gov/mcbjkz-ucw-qhpbvee-iaq http://arnulfo.il.gov/organization/divisions/air/pehb/ehs/iaqp/index.htm Pollens: Grass: Late Spring to Summer; Trees: Early Spring; Weeds: Mid Summer; Ragweed: Late Summer: [place] Mold: Late Summer to Fall 1. Nightly hair washing during pollen seasons 2. Keep windows closed, consider window a/c unit with filter (clean/maintain well, avoid/monitor for/prevent mold contamination) 3. Do not place fans in windows 4. Do not dry clothes outside. documented in this encounter Progress Notes Lori Romero RN - 01/19/2021 10:30 AM EDT Patient in clinic for skin testing. Prior to skin test assessment lungs clear to ausculation, HR WNL, no rash, hives noted. Patient denies use of antihistamine in last 7 days. Patient states they are feeling good. No signs and symptoms of allergic reaction present. Grazyna Giang MD - 01/19/2021 10:30 AM EDT Images from the original note were not included. [facility] Section of Allergy and Clinical Immunology Date of Service: 01/19/21 Primary Care Provider: Russell Oneil MD Patient Age: 20 y.o. 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 She reports nasal congestion in the spring and fall. Her mouth and tongue sometimes become itchy. At home, she has 5 dogs, 4 cats, and 3 horses. She has not noticed symptoms around horse or cattle. She does not handle gerbils. She has also noticed ocular burning sensation with exposure. She reported a reaction to ketamine when she was 14 years old. She went to the ED for stitches and she reports that she stopped breathing with ketamine. She recalled bruising from CPR. She has tolerated MAC sedation with propofol December 31, 2016 for EGD and colonoscopy. She also has nasal congestion in the spring and fall. Her tongue, lip and palatae becomes itchy withingestion of tomatoes (raw>cooked), blood oranges, navel oranges. Past Medical History: Diagnosis Date ??? Allergic [...] 3.66) performed by Jennifer Lion MD at [facility] ??? PRO COLONOSCOPY, DIAGNOSTIC N/A 12/31/2016 PEDIATRIC COLONOSCOPY performed by Jennifer Lion MD at [facility] ??? PRO UPPER GI ENDOSCOPY, DIAGNOSTIC N/A 12/31/2016 EGD, UPPER GI ENDOSCOPY performed by Jennifer Lion MD at [facility] ??? WRIST SURGERY Outpatient Medications Marked as Taking for the 01/19/21 encounter (Office Visit) with Grazyna Giang MD Medication Sig Dispense Refill ??? ISOtretinoin (ACCUTANE) 40 mg Capsule Take one tablet by mouth twice daily 60 capsule 0 ??? norelgestrom-ethinyl estradiol (ORTHO EVRA) 150-35 mcg/24 hr Patch Weekly Use as directed 3 patch 3 ??? polyethylene glycol (MIRALAX) 17 gram/dose Powder [...] process of renovating her home. Objective: BP 145/84 Pulse 80 Wt 85.7 kg (188 lb 15 oz) SpO2 100% BMI 32.43 kg/m?? No flowsheet data found. Wt Readings from Last 3 Encounters: 01/19/21 85.7 kg (188 lb 15 oz) 01/17/21 85.7 kg (188 lb 15 oz) 01/10/21 85.7 kg (189 lb) Gen: awake, alert, no acute distress Head: normocephalic, atraumatic EYES: Conjunctiva not injected or icteric. No discharge. No eyelid edema. ENT: Tympanic membranes clear, no lesions, erythema, or drainage. Normal external ear canals. Nasal passages show normal mucosa, edematous turbinates bilaterally, no lesions. OP mucosa well hydrated, clear without erythema. No lesions or exudates. No visible OP edema. NECK: supple, symmetric, no masses, trachea midline LYMPH: no submandibular, cervical, or supraclavicular LAD CVS: RRR LUNGS: CTAB, no wheezing or crackles, breathing unlabored ABD: non-distended, bowel sounds present SKIN: no rashes, normal color, no mottling EXTREMITIES: warm and well-perfused, normal bulk, symmetric ROM. NEURO: EOMI, no dysarthria PSYCH: normal grooming, appropriate mood and affect, normal volume/quantity/tone of speech, normal thought process and content Skin prick testing: After informed consent was obtained, the patient had skin testing to aeroallergens, starting with prick testing. There was a positive wheal and flare reaction with a 5 mm wheal and a 25 mm flare to thehistamine positive control and no response to the diluent negative control, indicating this is a good and interpretable test. Skin prick positive to D. Farinae (dust mite), cat, AP dog, cockroach, grass pollen, tree pollen (including [place] and poplar), nettle weed pollen, molds (Aspergillus and Cladosporium), rabbit, feathers. Labs: Component Latest Ref Rng & Units 01/10/2021 Mouse Epi IgE kU/L <0.35 Horse Dander IgE kU/L <0.35 Cow Epi IgE kU/L <0.35 E purpurascens, IgE kU/L <0.35 January grass, IgE kU/L <0.35 [place] IgE kU/L <0.35 Swedish Plantain IgE kU/L <0.35 Le's Quarter IgE kU/L <0.35 Rough Pigweed IgE kU/L <0.35 Mugwort IgE kU/L <0.35 H halodes, IgE kU/L <0.35 Penicillium IgE kU/L <0.35 Cladospor IgE kU/L <0.35 A Fumigatus IgE kU/L <0.35 Alt Tenuis IgE kU/L <0.35 Mites/D.P. IgE kU/L <0.35 Mites/D.F. IgE kU/L <0.35 Ragweed IgE kU/L <0.35 Alec Grass IgE kU/L <0.35 Dog Epi IgE kU/L <0.35 Cat Epi IgE kU/L <0.35 Beech IgE kU/L <0.35 Elm IgE kU/L <0.35 [place] IgE kU/L <0.35 White Oxford IgE kU/L <0.35 White Davis IgE kU/L <0.35 Meagher/Maple IgE kU/L <0.35 Silver Birch IgE kU/L <0.35 IgE <=101 kU/L 6 Assessment and Plan: Ivon Brittany Mcqueen is a 20 y.o. woman with a history of rashes and rhinitis seen for follow-up visit regarding possible environmental allergies. For nasal congestion and rhinitis, I recommend starting Flonase Sensimist 2 sprays per nostril daily. Add cetirizine 10 mg daily. Oral allergy sydrome is an allergic response that occurs when the over active immune system can not distinguish the difference between pollen proteins and food proteins. When the immune system recognizes a cross reactive protein, symptoms develop. Rapid onset of itching of the lips, mouth, or pharynx, and swelling of the lips, tongue, throat, and palate are the most common symptoms of OAS. Other symptoms may include gingivitis, conjunctivitis, or rhinitis. In rare instances, asthma or anaphylaxis may be triggered. Symptoms normally appear within minutes of eating the offending food. ? ? Grass pollens allergies may cross react with melons, tomatoes and oranges. For environmental allergies, we reviewed allergen avoidance, [...] visit in 3 months. Grazyna Sanchez MD Real Estate Teacher, [place] [address] [email or web address] documented in this encounter Plan of Treatment Not on filedocumented as of this encounter Procedures Procedure Name Priority Date/Time Associated Diagnosis Comme nts ALLERGY SCAN 01/19/2021 12:00 AM Results for this EDT procedure are i n the results section . documented in this encounter Results SCAN DOC: ALLERGY (01/19/2021 12:00 AM EDT) Narrative 01/19/2021 12:00 AM EDT This result has an attachment that is no t available. Ordered by an unspecified provider. Scanning Provider MEDIA MGR SCAN EXT ORDR/RSLT documented in this encounter Visit Diagnoses Diagnosis Environmental and seasonal allergies - P rimary Rash Rash and other nonspecific skin eruption Chronic rhinitis Pruritus Unspecified pruritic disorder documented in this encounter Administered Medications Inactive Administered Medications - up to 3 most recent administrations Medication Order MAR Action Action Date Dose Rate Site cetirizine (ZyrTEC) tablet 10 mg Given 01/19/2021 11:44 AM EDT 10 mg 10 mg, Oral, ONCE, 1 dose, On Suzette 01/19/21 at 1145, Routine documented in this encounter Care Teams Oceanography Teacher Relationship Specialty Start Date End Date Russell Oneil MD PCP - General 03/29/14 02/22/22 [address] [place] [address] documented as of this encounter
--- OUTSIDE RECORDS SUMMARY | 2022-07-27 10:49 | XMS_ITS | Encounter Summary ---
:2000 Author Organization [facility] [address] Care Team Providers Name Role Phone Russell Oneil MD Primary Care Provider Reason for Visit Reason Onset Date Comments Medication Refill 10/16/2018 Encounter Details Date Type Department Care Team Description 10/16/2018 Refill Pediatric Endocrinology at Grazyna Buckley, Polycystic ovary [facility] [place] [address] Social History Tobacco Use Types Packs/Day Years Used Date Smoking Tobacco: Never Smokeless Tobacco: Former Comments: no smoke exposure Alcohol Use Standard Drinks/Week Comments No 0 (1 standard drink = 0.6 oz pure alcoho l) Sex Assigned at Date Recorded Not on file documented as of this encounter Plan of Treatment Not on filedocumented as of this encounter Visit Diagnoses Diagnosis Polycystic ovary syndrome Polycystic ovaries documented in this encounter Care Teams Brim Welt Sewing Machine Operator Relationship Specialty Start Date End Date Russell Oneil MD PCP - General 03/29/14 02/22/[address] [place] [id number] documented as of this encounter
--- OUTSIDE RECORDS SUMMARY | 2022-07-27 10:49 | XMS_ITS | Encounter Summary ---
:2000 Author Organization [facility] [place] [address] Care Team Providers Name Role Phone Russell Oneil MD Primary Care Provider Encounter Details Date Type Department Care Team Description 01/25/2021 Telephone Allergy at [facility] [place] [address] Social History Tobacco Use Types Packs/Day Years Used Date Smoking Tobacco: Never Smokeless Tobacco: Never Comments: no smoke exposure Alcohol Use Standard Drinks/Week Comments No 0 (1 standard drink = 0.6 oz pure alcoho l) Sex Assigned at Date Recorded Not on file documented as of this encounter Miscellaneous Notes Telephone Encounter - Fortunato Clemens RN - 01/25/2021 9:32 AM EDT Patient called to review if she should have an Epi Pen with her . Her mother and her were discussingit after OV. 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 Also has food allergies and they are both concerned if Ivon is exposed to something and has a reaction. Informed her I will reach out to MD to see if Epipen recommended or required Telephone Encounter - Fortunato Clemens RN - 01/25/2021 9:32 AM EDT ----- Message from Shellie Saha sent at 01/20/2021 12:07 PM EDT ----- [phone]; she wants to know if an EpiPen would be beneficial for her since her allergies have become so prominent. documented in this encounter Plan of Treatment Not on filedocumented as of this encounter Visit Diagnoses Not on filedocumented in this encounter Care Teams Supervisor [employer] Relationship Specialty Start Date End Date Russell Oneil MD PCP - General 03/29/14 02/22/22 [address] [place] [address] documented as of this encounter
--- OUTSIDE RECORDS SUMMARY | 2022-07-27 10:49 | XMS_ITS | Encounter Summary ---
:2000 Author Organization [facility] [place] [address] Care Team Providers Name Role Phone Russell Oneil MD Primary Care Provider Encounter Details Date Type Department Care Team Description 04/01/2018 Telephone Pediatric Endocrinol ogy at [facility] [place] [address] Social History Tobacco Use Types Packs/Day Years Used Date Smoking Tobacco: Never Smokeless Tobacco: Former Alcohol Use Standard Drinks/Week Comments No 0 (1 standard drink = 0.6 oz pure alcoho l) Sex Assigned at Date Recorded Not on file documented as of this encounter Miscellaneous Notes Telephone Encounter - Grazyna Pantoja RN - 04/01/2018 2:07 PM EDT Left mom a message, these are no longer covered by [employer], the PA told me to use a covered alternative, but when I spoke with a rep at [facility], they couldn't tell me what a covered alternative is, as Xulane is the only brand still out there. Elevated the case to a coal yard supervisor, awaiting determination. Left mom a message with this information. Telephone Encounter - Grazyna Pantoja RN - 04/01/2018 2:07 PM EDT ----- Message from Mateo Almodovar sent at 04/01/2018 12:43 PM EDT ----- Contact: mom Mom is calling saying that the insurance in no long covering her control and they said that the doctor will need to call and talk to someone if it is still needed and please call mom as well because she was she was suppose to put an new one on as of Saturday [phone] documented in this encounter Plan of Treatment Not on filedocumented as of this encounter Visit Diagnoses Not on filedocumented in this encounter Care Teams Rnfa Relationship Specialty Start Date End Date Russell Oneil MD PCP - General 03/29/14 02/22/[address] [place] [id number] documented as of this encounter
--- OUTSIDE RECORDS SUMMARY | 2022-07-27 10:49 | XMS_ITS | Clinical Summary ---
:2000 Author Organization [place] [address] Care Team Providers Name Role Phone Cass Salvador Primary Care Provider Allergies Active Allergy Reactions Severity Noted Date Comments Ketamine 12/13/2014 Pollen Extracts Other (See Comments) 07/25/2020 Medications Medication Sig Dispensed Refills Start Date End Date Status polyethylene glycol 0 12/03/2017 Active (MIRALAX) 17 gram/dose Powder triamcinolone Apply to eczema 15 g 1 06/27/2018 Active (KENALOG) 0.1 % Cream rash twice daily as needed until clear norelgestrom-ethinyl Use as directed 3 patch 3 02/10/2019 Active estradiol (ORTHO EVRA) 150-35 mcg/24 hr Patch WeeklyIndications: Polycystic ovary syndrome ISOtretinoin Take one tablet 60 capsule 0 01/06/2021 Active (ACCUTANE) 40 mg by mouth twice CapsuleIndications: daily Acne vulgaris Additional Information Patient not taking. Reported on 04/24/2021 sertraline (Zoloft) 50 mg TAKE 1 TABLET BY MOUTH 0 0 01/23/2021 Active Tablet DAILY EPINEPHrine 0.3 mg/0.3 mL Inject 0.3 mLs into the 1 kit 1 04/24/2021 Active Auto-InjectorIndications: muscle once as needed for Anaphylaxis, initial encounter up to 1 dose. 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 Last Assessment & Plan: Ivon is not certain that there has been a benefit from the spironolactone, but she is tolerating the therapy well. I think we should continue therapy for now, but if she begins oral contraceptives we ma y be able to suppress the testosterone s uch that she no longer needs androgen blockade. Given that her menses has not recurred after discontinuing the Depo Provera it is quite likely that she has PCOS. I recommended a 14 day course of oral pr ogesterone to see if she has withdrawal bleeding. Mother will contact me after that course is complete. We will then consider the option of starting OCPs or obser ving to see if spontaneous menses resume . Ivon is not sexually active but has a steady partner. She feels that she could discuss that with her mother when she chooses to have intercourse. She understand s that progesterone and spironolactone c ould be harmful to a developing fetus. Chronic pelvic pain in female 10/14/2016 Last Assessment & Plan: Formatting of th is note might be different from the original. According to her mother, Ivon did have s ome inflammation noted during her endoscopy. The biopsy results from 12/31 do not appear to be diagnostic. They will continue to follow up with Ped GI. Eczema 10/07/2016 Acne vulgaris 12/13/2014 Encounter for long-term (current) use of other medicat ions 03/29/2014 Family History Medical History Relation Comments Allergic Rhinitis Brother Hyperlipidemia Father Hypertension Maternal Grandfather Obesity Maternal Grandfather Cancer Maternal Grandmother Brain Heart Disease Maternal Grandmother Hypertension Maternal Grandmother Substance Use Disorder Maternal Grandmother Allergic Rhinitis Mother Depression Mother Food Allergy Mother Hearing Loss Mother Heart Disease Mother PVCs Urticaria Mother Diabetes Paternal Grandmother Hypertension Paternal Grandmother Autoimmune Disorder Neg Hx Crohn Disease Neg Hx Thyroid Disease Neg Hx Ulcerative Colitis Neg Hx Relation Status Comments Brother Father Alive Maternal Grandfather Alive Maternal Grandmother Mother Alive Paternal Grandfather Alive Paternal Grandmother Alive Social History Tobacco Use Types Packs/Day Years Used Date Smoking Tobacco: Never Smokeless Tobacco: Never Comments: no smoke exposure Alcohol Use Standard Drinks/Week Comments No 0 (1 standard drink = 0.6 oz pure alcoho l) Sex Assigned at Date Recorded Not on file Last Filed Vital Signs Vital Sign Reading Time Taken Comments Blood Pressure 130/88 04/24/2021 3:19 PM EDT Pulse 64 04/24/2021 3:19 PM EDT Temperature 36.7 ??C (98 ??F) 07/04/2018 2:22 PM EDT Respiratory Rate 18 07/23/2017 8:46 AM EST Oxygen Saturation 100% 04/24/2021 3:19 PM EDT Inhaled Oxygen Concentration - - Weight 85.7 kg (188 lb 15 oz) 01/19/2021 10:23 AM EDT Height 162.6 cm (5' 4) 01/17/2021 9:31 AM EDT reported Body Mass Index 32.43 01/17/2021 9:31 AM EDT Plan of Treatment Health Maintenance Due Date Last Done Comments Hepatitis B vaccine (0-59 yrs) (1 of 3 - 3-dose 2000 series) Covid-19 Vaccine (#1) 2000 HPV vaccine (1 - 2-dose series) 2011 Chlamydia Screening 2015 HIV screen 2018 Hepatitis C Screening 2018 Tdap adult 2019 Tetanus vaccine 2019 PAP Smear 2021 Lipid Screening 02/28/2022 02/28/2017 Influenza (Flu) vaccine (1 of 1 - Influenza standard 05/03/2022 series) Insurance Payer Benefit Plan / Subscriber ID Effective Phone Address T ype Group Dates [employer] [id number] 2021-Pres [phone] ATTN: CLAIMS CARITAS MANAGED CARIT[employer] [place] ent [address] MEDICAID DEPT [address] [place] [address] Care Teams Tube Wrapper Relationship Specialty Start Date End Date Cass Salvador PA PCP - General Family Medicine 02/23/[address] [place] [id number]
--- OUTSIDE RECORDS SUMMARY | 2022-07-27 10:49 | XMS_ITS | Encounter Summary ---
:2000 Author Organization [facility] [place] [address] Care Team Providers Name Role Phone Russell Oneil MD Primary Care Provider Encounter Details Date Type Department Care Team Description 01/30/2018 Orders Only Rheumatology at [facility] Gray Navarro MD Left foot pain [facility] [place] [address] RHEUMATOLOGY DEPT. [phone] [place], [place] [address] (Wo rk) Social History Tobacco Use Types Packs/Day Years Used Date Smoking Tobacco: Never Smokeless Tobacco: Former Alcohol Use Standard Drinks/Week Comments No 0 (1 standard drink = 0.6 oz pure alcoho l) Sex Assigned at Date Recorded Not on file documented as of this encounter Plan of Treatment Not on filedocumented as of this encounter Visit Diagnoses Diagnosis Left foot pain Pain in limb documented in this encounter Care Teams Car Park Attendant Relationship Specialty Start Date End Date Russell Oneil MD PCP - General 03/29/14 02/22/22 [address] [place] [address] documented as of this encounter
--- OUTSIDE RECORDS SUMMARY | 2022-07-27 10:49 | XMS_ITS | Encounter Summary ---
:2000 Author Organization [facility] [place] [address] Care Team Providers Name Role Phone Russell Oneil MD Primary Care Provider Reason for Visit Reason Comments Establish Care Consultation (Routine) - Closed Specialty Diagnoses / Procedures Referred By Contact Refer red To Contact Allergy Diagnoses Allergic rhinitis, unspecified Russell Oneil MD [facility] Allergy [address] [place] [id number] [place] [address] Fax: Referral ID Status Reason Start Date Expiration Date Visits V isits Requested Authorized [id number] Closed Consult, Test 12/27/2020 12/27/2021 [facility] PCP Updated and/or Approved Encounter Details Date Type Department Care Team Description 01/10/2021 Office Visit Allergy at [facility] FuentesGrazyna Contreras; [facility] Anh Tran [place] [address] [facility] [phone] DR ALLERGY DEPT [place], [place] [address] (Wo rk) Social History Tobacco [...] Sign Reading Time Taken Comments Blood Pressure - - Pulse 87 01/10/2021 1:30 PM EDT Temperature - - Respiratory Rate - - Oxygen Saturation 98% 01/10/2021 1:30 PM EDT Inhaled Oxygen Concentration - - Weight 85.7 kg (189 lb) 01/10/2021 1:30 PM EDT Height - - Body Mass Index 32.44 09/27/2020 11:25 AM EST documented in this encounter Patient Instructions Patient InstructionsGrazyna Giang MD - 01/10/2021 2:00 PM EDT Flonase Sensimist 2 sprays per nostril daily documented in this encounter Progress Notes Grazyna Giang MD - 01/10/2021 2:00 PM EDT Images from the original note were not included. [facility] Section of Allergy and Clinical Immunology Date of Service: 01/10/21 Primary Care Provider: Russell Oneil MD Patient Age: 20 y.o. 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 She reports nasal congestion in the spring and fall. Her mouth and tongue sometimes become itchy. At home, she has 5 dogs, 4 cats, and 3 horses. She has not noticed symptoms around horse or cattle. She does not handle gerbils. But when they come into the clinic, made me predict rashes and hives. Burning eyes She reported a reaction to ketamine when [...] Her tongue, lip and palatae becomes itchy withraw tomatoes, kiwi, blood oranges, navel oranges, grapes, honeydew. She last needed Benedryl 2 weeks ago. Past Medical History: Diagnosis Date ??? Allergic [...] 3.66) performed by Jennifer Lion MD at [facility] ENDOSCOPY ??? PRO COLONOSCOPY, DIAGNOSTIC N/A 12/31/2016 PEDIATRIC COLONOSCOPY performed by Jennifer Lion MD at [facility] ENDOSCOPY ??? PRO UPPER GI ENDOSCOPY, DIAGNOSTIC N/A 12/31/2016 EGD, UPPER GI ENDOSCOPY performed by Jennifer Lion MD at [facility] ENDOSCOPY ??? WRIST SURGERY Outpatient Medications Marked as Taking for the 01/10/21 encounter (Office Visit) with Grazyna Giang MD [...] Mother PVCs ??? Hearing Loss Mother ??? Hyperlipidemia Father ??? Hypertension Maternal Grandfather ??? Obesity Maternal Grandfather ??? Cancer Maternal Grandmother Brain ??? Heart Disease Maternal Grandmother ??? Hypertension Maternal Grandmother ??? Substance Use Disorder Maternal Grandmother ??? Diabetes Paternal Grandmother ??? Hypertension Paternal Grandmother ??? Ulcerative Colitis Neg Hx ??? Crohn Disease Neg Hx ??? Autoimmune Disorder Neg Hx ??? Thyroid Disease Neg Hx Social History Tobacco Use ??? Smoking status: Never Smoker ??? Smokeless tobacco: Never Used ??? Tobacco comment: no smoke exposure Substance Use Topics ??? Alcohol use: No [...] dogs (5), cats (4) and horse 3. Objective: Pulse 87 Wt 85.7 kg (189 lb) SpO2 98% BMI 32.44 kg/m?? No flowsheet data found. Wt Readings from Last 3 Encounters: 01/10/21 85.7 kg (189 lb) 09/27/20 86.2 kg (190 lb) 07/04/18 75.2 kg (165 lb 12.8 oz) (92 %)* * Growth percentiles are based on CDC (Girls, 2-20 Years) data. Gen: awake, alert, no acute distress Head: [...] of speech, normal thought process and content Review of Medical Records: I reviewed DH records Assessment and Plan: Ivon Mcqueen is a 20 y.o. woman with a history of rashes and rhinitis seen for consultation regarding possible environmental allergies. Plan for checking environmental specific IgE. If unrevealing,plan for her to return for environmental skin testing. For nasal congestion and rhinitis, I recommend starting Flonase Sensimist 2 sprays per nostril daily. Oral allergy sydrome is an allergic [...] of eating the offending food. ? ? Individuals with birch allergy can cross react with apples, pears, almonds, peaches, apricots, cherries, plums, nectarines, prunes, kiwi, carrots, celery, fennel, parsley, coriander, parsnips, peppers,and potatoes. Josephine nuts, almonds and walnuts are also associated. The foods known to cross react with ragweed pollen are watermelon, cantaloupe, honey dew, zucchini, banana and cucumber. Even dandelions or chamomile tea can cause a reaction because they belong to thesame plant family. Grass pollens allergies may cross react with melons, tomatoes and oranges. Mugwort pollen allergy is associated with celery, fennel,carrots, parsley, coriander, sunflower and peppers.? Risks and benefits of skin testing were discussed in detail with the patient. She requested skin testing to the allergens as planned. Consent was obtained today. She will continue to be off antihistamines prior to skin testing. All questions were answered, and patient expressed understanding of the plan. Thank you for the opportunity to participate in the care of your patient. Ongoing follow-up with thepatient's primary care physician is recommended and encouraged. If I can provide any further assistance, please do not hesitate to contact me. Next visit (studies planned): Environmental skin testing Grazyna Sanchez MD Job Developer, [place] [address] [email or web address] Addendum: low serum total IgE Component Latest Ref Rng & Units 01/10/2021 Mouse Epi IgE kU/L <0.35 Horse Dander IgE kU/L <0.35 Cow Epi IgE kU/L <0.35 E purpurascens, IgE kU/L <0.35 January grass, IgE kU/L <0.35 Winger IgE kU/L <0.35 [place] Plantain IgE kU/L <0.35 [place] IgE [...] IgE kU/L <0.35 Elm IgE kU/L <0.35 [place] IgE kU/L <0.35 [place] IgE kU/L <0.35 [place] IgE kU/L <0.35 Alcorn/Maple IgE kU/L <0.35 Silver Birch IgE kU/L <0.35 IgE <=101 kU/L 6 documented in this encounter Plan of Treatment Not on filedocumented as of this encounter Procedures Procedure Name Priority Date/Time Associated Comments Diagnosis HC ALLERGEN (IGE), Routine 01/10/2021 2:56 PM Rash Results for this LEVEL 1 EDT Chronic rhinitis procedure a re in the results section. HC ALLERGEN (IGE), Routine 01/10/2021 2:56 PM Rash Results for this LEVEL 1 EDT Chronic rhinitis procedure a re in the results section. HC ALLERGEN (IGE), Routine 01/10/2021 2:56 PM Rash Results for this LEVEL 1 EDT Chronic rhinitis procedure a re in the results section. HC IGE, TOTAL Routine 01/10/2021 2:56 PM Rash Results for this EDT Chronic rhinitis procedure a re in the results section. HC ALLERGEN (IGE), Routine 01/10/2021 2:56 PM Rash Results for this LEVEL 1 EDT Chronic rhinitis procedure a re in the results section. HC ALLERGEN (IGE), Routine 01/10/2021 2:56 PM Rash Results for this LEVEL 1 EDT Chronic rhinitis procedure a re in the results section. HC ALLERGEN (IGE), Routine 01/10/2021 2:56 PM Rash Results for this LEVEL 1 EDT Chronic rhinitis procedure a re in the results section. HC ALLERGEN (IGE), Routine 01/10/2021 2:56 PM Rash Results for this LEVEL 1 EDT Chronic rhinitis procedure a re in the results section. HC ALLERGEN (IGE), Routine 01/10/2021 2:56 PM Rash Results for this LEVEL 1 EDT Chronic rhinitis procedure a re in the results section. HC ALLERGEN (IGE), Routine 01/10/2021 2:56 PM Rash Results for this LEVEL 1 EDT Chronic rhinitis procedure a re in the results section. HC ALLERGEN (IGE), Routine 01/10/2021 2:56 PM Rash Results for this LEVEL 1 EDT Chronic rhinitis procedure a re in the results section. HC ALLERGEN (IGE), Routine 01/10/2021 2:56 PM Chronic rhinitis Results for this LEVEL 1 EDT procedure are i n the results section. HC ALLERGEN (IGE), Routine 01/10/2021 2:56 PM Rash Results for this LEVEL 1 EDT Chronic rhinitis procedure a re in the results section. HC ALLERGEN (IGE), Routine 01/10/2021 2:56 PM Rash Results for this LEVEL 1 EDT Chronic rhinitis procedure a re in the results section. HC ALLERGEN (IGE), Routine 01/10/2021 2:56 PM Rash Results for this LEVEL 1 EDT Chronic rhinitis procedure a re in the results section. HC ALLERGEN (IGE), Routine 01/10/2021 2:56 PM Rash Results for this LEVEL 1 EDT Chronic rhinitis procedure a re in the results section. HC ALLERGEN (IGE), Routine 01/10/2021 2:56 PM Rash Results for this LEVEL 1 EDT Chronic rhinitis procedure a re in the results section. HC ALLERGEN (IGE), Routine 01/10/2021 2:56 PM Rash Results for this LEVEL 1 EDT Chronic rhinitis procedure a re in the results section. HC ALLERGEN (IGE), Routine 01/10/2021 2:56 PM Rash Results for this LEVEL 1 EDT Chronic rhinitis procedure a re in the results section. HC VENIPUNCTURE Routine 01/10/2021 2:56 PM Chronic rhinitis Re sults for this EDT procedure are i n the results section. HC PCH ALLERGEN (LGE) Routine 01/10/2021 2:56 PM Rash Results for this LEVEL 1 EDT Chronic rhinitis procedure a re in the results section. HC ALLERGEN (IGE), Routine 01/10/2021 2:56 PM Rash Results for this LEVEL 1 EDT Chronic rhinitis procedure a re in the results section. HC ALLERGEN (IGE), Routine 01/10/2021 2:56 PM Rash Results for this LEVEL 1 EDT Chronic rhinitis procedure a re in the results section. HC ALLERGEN (IGE), Routine 01/10/2021 2:56 PM Rash Results for this LEVEL 1 EDT Chronic rhinitis procedure a re in the results section. HC ALLERGEN (IGE), Routine 01/10/2021 2:56 PM Rash Results for this LEVEL 1 EDT Chronic rhinitis procedure a re in the results section. HC ALLERGEN (IGE), Routine 01/10/2021 2:56 PM Rash Results for this LEVEL 1 EDT Chronic rhinitis procedure a re in the results section. HC ALLERGEN (IGE), Routine 01/10/2021 2:56 PM Rash Results for this LEVEL 1 EDT Chronic rhinitis procedure a re in the results section. HC ALLERGEN (IGE), Routine 01/10/2021 2:56 PM Rash Results for this LEVEL 1 EDT Chronic rhinitis procedure a re in the results section. HC ALLERGEN (IGE), Routine 01/10/2021 2:56 PM Rash Results for this LEVEL 1 EDT Chronic rhinitis procedure a re in the results section. documented in this encounter Results Mouse, Epithelium IgE (01/10/2021 2:56 PM EDT) athologist Signature Mouse Epi IgE <0.35 kU/L [facility] Comment: Reference Ranges <0.35 kU/L Class 0: ??Normal 0.35-0.69 kU/L Class 1: ??Low level of allergy, indicat bernadette of ongoing sensitization 0.70-3.49 kU/L Class 2: ??Moderate level of allergy, in dicative of stronger ongoing sensitization 3.50-17.49 kU/L Class 3: ??High level of allergy, indica tive of high level sensitization 17.5-49.9 kU/L Class 4: Very high level of allergy, ind icative of very high level sensitization 50.0-100 kU/L Class 5: Very high level of allergy, ind icative of very high level sensitization Specimen Anatomical Collection Method Collection Time Receive d Time (Source) Location / / Volume Laterality Blood specimen 01/10/2021 2:56 PM 021 7:29 (specimen) EDT AM EDT Resulting Agency Comment Spec In Lab Grazyna Sanchez MD IMMUNOLOGY ORDERABLES Performing Organization Address City/State/[place] [address] Horse Dander IgE (01/10/2021 2:56 PM EDT) athologist Signature Horse Dander <0.35 kU/L [facility] Comment: Reference Ranges <0.35 kU/L Class 0: ??Normal 0.35-0.69 kU/L Class 1: ??Low level of allergy, indicat bernadette of ongoing sensitization 0.70-3.49 kU/L Class 2: ??Moderate level of allergy, in dicative of stronger ongoing sensitization 3.50-17.49 kU/L Class 3: ??High level of allergy, indica tive of high level sensitization 17.5-49.9 kU/L Class 4: Very high level of allergy, ind icative of very high level sensitization 50.0-100 kU/L Class 5: Very high level of allergy, ind icative of very high level sensitization Specimen Anatomical Collection Method Collection Time Receive d Time (Source) Location / / Volume Laterality Blood specimen 01/10/2021 2:56 PM 021 7:29 (specimen) EDT AM EDT Resulting Agency Comment Spec In Lab Grazyna Sanchez MD IMMUNOLOGY ORDERABLES Performing Organization Address City/State/[place] [address] Cow Epithelium IgE (01/10/2021 2:56 PM EDT) athologist Signature Cow Epi IgE <0.35 kU/L [facility] Comment: Class 0 (Negative <0.35) Test Performed by: [facility] [address] [address] Torch Shearer: Tl Crawford M.D. Ph. D.; CLIA# [id number] Specimen Anatomical Collection Method Collection Time Receive d Time (Source) Location / / Volume Laterality Blood specimen 01/10/2021 2:56 PM 021 4:14 (specimen) EDT PM EDT Resulting Agency Comment Spec In Lab Grazyna Sanchez MD IMMUNOLOGY ORDERABLES Performing Organization Address City/[facility]/ZIP Code Phon e Number [address] Epicoccum purpurascens, IgE (01/10/2021 2:56 PM EDT) athologist Signature E <0.35 kU/L JOSE SARAH ruth [facility] Comment: Reference Ranges <0.35 kU/L Class 0: ??Normal 0.35-0.69 kU/L Class 1: ??Low level of allergy, indicat bernadette of ongoing sensitization 0.70-3.49 kU/L Class 2: ??Moderate level of allergy, in dicative of stronger ongoing sensitization 3.50-17.49 kU/L Class 3: ??High level of allergy, indica tive of high level sensitization 17.5-49.9 kU/L Class 4: Very high level of allergy, ind icative of very high level sensitization 50.0-100 kU/L Class 5: Very high level of allergy, ind icative of very high level sensitization Specimen Anatomical Collection Method Collection Time Receive d Time (Source) Location / / Volume Laterality Blood specimen 01/10/2021 2:56 PM 021 7:29 (specimen) EDT AM EDT Resulting Agency Comment Spec In Lab Grazyna Sanchez MD IMMUNOLOGY ORDERABLES Performing Organization Address City/State/[place] [address] January Grass IgE (01/10/2021 2:56 PM EDT) athologist Signature [place]ida grass, <0.35 kU/L [facility] Comment: Reference Ranges <0.35 kU/L Class 0: ??Normal 0.35-0.69 kU/L Class 1: ??Low level of allergy, indicat bernadette of ongoing sensitization 0.70-3.49 kU/L Class 2: ??Moderate level of allergy, in dicative of stronger ongoing sensitization 3.50-17.49 kU/L Class 3: ??High level of allergy, indica tive of high level sensitization 17.5-49.9 kU/L Class 4: Very high level of allergy, ind icative of very high level sensitization 50.0-100 kU/L Class 5: Very high level of allergy, ind icative of very high level sensitization >100 kU/L Class 6: Very high level of allergy, ind icative of very high level sensitization Specimen Anatomical Collection Method Collection Time Receive d Time (Source) Location / / Volume Laterality Blood specimen 01/10/2021 2:56 PM 021 7:29 (specimen) EDT AM EDT Resulting Agency Comment Spec In Lab Grazyna Sanchez MD IMMUNOLOGY ORDERABLES Performing Organization Address City/[facility]/ZIP [facility] Phon e Number [address] Winger, IgE (01/10/2021 2:56 PM EDT) P athologist Signature Winger IgE <0.35 kU/L [facility] Comment: Reference Ranges <0.35 kU/L Class 0: ??Normal 0.35-0.69 kU/L Class 1: ??Low level of allergy, indicat bernadette of ongoing sensitization 0.70-3.49 kU/L Class 2: ??Moderate level of allergy, in dicative of stronger ongoing sensitization 3.50-17.49 kU/L Class 3: ??High level of allergy, indica tive of high level sensitization 17.5-49.9 kU/L Class 4: Very high level of allergy, ind icative of very high level sensitization 50.0-100 kU/L Class 5: Very high level of allergy, ind icative of very high level sensitization Specimen Anatomical Collection Method Collection Time Receive d Time (Source) Location / / Volume Laterality Blood specimen 01/10/2021 2:56 PM 021 7:29 (specimen) EDT AM EDT Resulting Agency Comment Spec In Lab Grazyna Sanchez MD IMMUNOLOGY ORDERABLES Performing Organization Address City/[facility]/ZIP [facility] Phon e Number [address] Cape Verdean Plantain, IgE (01/10/2021 2:56 PM EDT) P athologist Signature [place] Ver[place]an <0.35 kU/L [facility] Comment: Reference Ranges <0.35 kU/L Class 0: ??Normal 0.35-0.69 kU/L Class 1: ??Low level of allergy, indicat bernadette of ongoing sensitization 0.70-3.49 kU/L Class 2: ??Moderate level of allergy, in dicative of stronger ongoing sensitization 3.50-17.49 kU/L Class 3: ??High level of allergy, indica tive of high level sensitization 17.5-49.9 kU/L Class 4: Very high level of allergy, ind icative of very high level sensitization 50.0-100 kU/L Class 5: Very high level of allergy, ind icative of very high level sensitization Specimen Anatomical Collection Method Collection Time Receive d Time (Source) Location / / Volume Laterality Blood specimen 01/10/2021 2:56 PM 021 7:29 (specimen) EDT AM EDT Resulting Agency Comment Spec In Lab Grazyna Sanchez MD IMMUNOLOGY ORDERABLES Performing Organization Address City/[facility]/[place] [address] [facility] IgE (01/10/2021 2:56 PM EDT) athologist Signature [facility] <0.35 kU/L [facility] Comment: Reference Ranges <0.35 kU/L Class 0: ??Normal 0.35-0.69 kU/L Class 1: ??Low level of allergy, indicat bernadette of ongoing sensitization 0.70-3.49 kU/L Class 2: ??Moderate level of allergy, in dicative of stronger ongoing sensitization 3.50-17.49 kU/L Class 3: ??High level of allergy, indica tive of high level sensitization 17.5-49.9 kU/L Class 4: Very high level of allergy, ind icative of very high level sensitization 50.0-100 kU/L Class 5: Very high level of allergy, ind icative of very high level sensitization Specimen Anatomical Collection Method Collection Time Receive d Time (Source) Location / / Volume Laterality Blood specimen 01/10/2021 2:56 PM 021 7:29 (specimen) EDT AM EDT Resulting Agency Comment Spec In Lab Grazyna Sanchez MD IMMUNOLOGY ORDERABLES Performing Organization Address City/State/ZIP Code Phon e Number [address] Pigweed, Rough IgE (01/10/2021 2:56 PM EDT) athologist Signature Rough Pigweed <0.35 kU/L [facility] Comment: Reference Ranges <0.35 kU/L Class 0: ??Normal 0.35-0.69 kU/L Class 1: ??Low level of allergy, indicat bernadette of ongoing sensitization 0.70-3.49 kU/L Class 2: ??Moderate level of allergy, in dicative of stronger ongoing sensitization 3.50-17.49 kU/L Class 3: ??High level of allergy, indica tive of high level sensitization 17.5-49.9 kU/L Class 4: Very high level of allergy, ind icative of very high level sensitization 50.0-100 kU/L Class 5: Very high level of allergy, ind icative of very high level sensitization Specimen Anatomical Collection Method Collection Time Receive d Time (Source) Location / / Volume Laterality Blood specimen 01/10/2021 2:56 PM 021 7:29 (specimen) EDT AM EDT Resulting Agency Comment Spec In Lab Grazyna Sanchez MD IMMUNOLOGY ORDERABLES Performing Organization Address City/State/ZIP Code Phon e Number [address] Mugwort IgE (01/10/2021 2:56 PM EDT) athologist Signature Mugwort IgE <0.35 kU/L [facility] Comment: Reference Ranges <0.35 kU/L Class 0: ??Normal 0.35-0.69 kU/L Class 1: ??Low level of allergy, indicat bernadette of ongoing sensitization 0.70-3.49 kU/L Class 2: ??Moderate level of allergy, in dicative of stronger ongoing sensitization 3.50-17.49 kU/L Class 3: ??High level of allergy, indica tive of high level sensitization 17.5-49.9 kU/L Class 4: Very high level of allergy, ind icative of very high level sensitization 50.0-100 kU/L Class 5: Very high level of allergy, ind icative of very high level sensitization >100 kU/L Class 6: Very high level of allergy, ind icative of very high level sensitization Specimen Anatomical Collection Method Collection Time Receive d Time (Source) Location / / Volume Laterality Blood specimen 01/10/2021 2:56 PM 021 7:29 (specimen) EDT AM EDT Resulting Agency Comment Spec In Lab Grazyna Sanchez MD IMMUNOLOGY ORDERABLES Performing Organization Address City/[facility]/ZIP [facility] Phon e Number [address] Helminthosporium Halodes, IgE (01/10/2021 2:56 PM EDT) athologist Signature H halodes, IgE <0.35 kU/L [facility] Comment: Reference Ranges <0.35 kU/L Class 0: ??Normal 0.35-0.69 kU/L Class 1: ??Low level of allergy, indicat bernadette of ongoing sensitization 0.70-3.49 kU/L Class 2: ??Moderate level of allergy, in dicative of stronger ongoing sensitization 3.50-17.49 kU/L Class 3: ??High level of allergy, indica tive of high level sensitization 17.5-49.9 kU/L Class 4: Very high level of allergy, ind icative of very high level sensitization 50.0-100 kU/L Class 5: Very high level of allergy, ind icative of very high level sensitization >100 kU/L Class 6: Very high level of allergy, ind icative of very high level sensitization Specimen Anatomical Collection Method Collection Time Receive d Time (Source) Location / / Volume Laterality Blood specimen 01/10/2021 2:56 PM 021 7:29 (specimen) EDT AM EDT Resulting Agency Comment Spec In Lab Grazyna Sanchez MD IMMUNOLOGY ORDERABLES Performing Organization Address City/[facility] Phon e Number [address] Penicillium IgE (01/10/2021 2:56 PM EDT) P athologist Signature Penicillium IgE <0.35 kU/L [facility] Comment: Reference Ranges <0.35 kU/L Class 0: ??Normal 0.35-0.69 kU/L Class 1: ??Low level of allergy, indicat bernadette of ongoing sensitization 0.70-3.49 kU/L Class 2: ??Moderate level of allergy, in dicative of stronger ongoing sensitization 3.50-17.49 kU/L Class 3: ??High level of allergy, indica tive of high level sensitization 17.5-49.9 kU/L Class 4: Very high level of allergy, ind icative of very high level sensitization 50.0-100 kU/L Class 5: Very high level of allergy, ind icative of very high level sensitization >100 kU/L Class 6: Very high level of allergy, ind icative of very high level sensitization Specimen Anatomical Collection Method Collection Time Receive d Time (Source) Location / / Volume Laterality Blood specimen 01/10/2021 2:56 PM 021 7:29 (specimen) EDT AM EDT Resulting Agency Comment Spec In Lab Grazyna Sanchez MD IMMUNOLOGY ORDERABLES Performing Organization Address City/State/ZIP Code Phon e Number [address] Cladosporium IgE (01/10/2021 2:56 PM EDT) athologist Signature Cladospor IgE <0.35 kU/L [facility] Comment: Reference Ranges <0.35 kU/L Class 0: ??Normal 0.35-0.69 kU/L Class 1: ??Low level of allergy, indicat bernadette of ongoing sensitization 0.70-3.49 kU/L Class 2: ??Moderate level of allergy, in dicative of stronger ongoing sensitization 3.50-17.49 kU/L Class 3: ??High level of allergy, indica tive of high level sensitization 17.5-49.9 kU/L Class 4: Very high level of allergy, ind icative of very high level sensitization 50.0-100 kU/L Class 5: Very high level of allergy, ind icative of very high level sensitization >100 kU/L Class 6: Very high level of allergy, ind icative of very high level sensitization Specimen Anatomical Collection Method Collection Time Receive d Time (Source) Location / / Volume Laterality Blood specimen 01/10/2021 2:56 PM 021 7:29 (specimen) EDT AM EDT Resulting Agency Comment Spec In Lab Grazyna Sanchez MD IMMUNOLOGY ORDERABLES Performing Organization Address City/[facility]/ZIP Code Phon e Number [address] Aspergillus fumigatus IgE (01/10/2021 2:56 PM EDT) athologist Signature A Fumigatus <0.35 kU/L [facility] LABORATORY Comment: Reference Ranges <0.35 kU/L Class 0: ??Normal 0.35-0.69 kU/L Class 1: ??Low level of allergy, indicat bernadette of ongoing sensitization 0.70-3.49 kU/L Class 2: ??Moderate level of allergy, in dicative of stronger ongoing sensitization 3.50-17.49 kU/L Class 3: ??High level of allergy, indica tive of high level sensitization 17.5-49.9 kU/L Class 4: Very high level of allergy, ind icative of very high level sensitization 50.0-100 kU/L Class 5: Very high level of allergy, ind icative of very high level sensitization >100 kU/L Class 6: Very high level of allergy, ind icative of very high level sensitization Specimen Anatomical Collection Method Collection Time Receive d Time (Source) Location / / Volume Laterality Blood specimen 01/10/2021 2:56 PM 021 7:29 (specimen) EDT AM EDT Resulting Agency Comment Spec In Lab Grazyna Sanchez MD IMMUNOLOGY ORDERABLES Performing Organization Address City/[facility]/ZIP Code Phon e Number [address] Alternaria Tenuis, IgE (01/10/2021 2:56 PM EDT) P athologist Signature Alt Tenuis IgE <0.35 kU/L [facility] LABORATORY Comment: Reference Ranges <0.35 kU/L Class 0: ??Normal 0.35-0.69 kU/L Class 1: ??Low level of allergy, indicat bernadette of ongoing sensitization 0.70-3.49 kU/L Class 2: ??Moderate level of allergy, in dicative of stronger ongoing sensitization 3.50-17.49 kU/L Class 3: ??High level of allergy, indica tive of high level sensitization 17.5-49.9 kU/L Class 4: Very high level of allergy, ind icative of very high level sensitization 50.0-100 kU/L Class 5: Very high level of allergy, ind icative of very high level sensitization >100 kU/L Class 6: Very high level of allergy, ind icative of very high level sensitization Specimen Anatomical Collection Method Collection Time Receive d Time (Source) Location / / Volume Laterality Blood specimen 01/10/2021 2:56 PM 021 7:29 (specimen) EDT AM EDT Resulting Agency Comment Spec In Lab Grazyna Sanchez MD IMMUNOLOGY ORDERABLES Performing Organization Address City/State/ZIP Code Phon e Number [place] [phone] House Dust Mites/D.P., IgE (01/10/2021 2:56 PM EDT) athologist Signature Mites/D.P. IgE <0.35 kU/L [facility] LABORATORY Comment: Reference Ranges <0.35 kU/L Class 0: ??Normal 0.35-0.69 kU/L Class 1: ??Low level of allergy, indicat bernadette of ongoing sensitization 0.70-3.49 kU/L Class 2: ??Moderate level of allergy, in dicative of stronger ongoing sensitization 3.50-17.49 kU/L Class 3: ??High level of allergy, indica tive of high level sensitization 17.5-49.9 kU/L Class 4: Very high level of allergy, ind icative of very high level sensitization 50.0-100 kU/L Class 5: Very high level of allergy, ind icative of very high level sensitization >100 kU/L Class 6: Very high level of allergy, ind icative of very high level sensitization Specimen Anatomical Collection Method Collection Time Receive d Time (Source) Location / / Volume Laterality Blood specimen 01/10/2021 2:56 PM 021 7:29 (specimen) EDT AM EDT Resulting Agency Comment Spec In Lab Grazyna Sanchez MD IMMUNOLOGY ORDERABLES Performing Organization Address City/[facility]/[place] [address] House Dust Mites/D.F., IgE (01/10/2021 2:56 PM EDT) athologist Signature Mites/D.F. IgE <0.35 kU/L [facility] LABORATORY Comment: Reference Ranges <0.35 kU/L Class 0: ??Normal 0.35-0.69 kU/L Class 1: ??Low level of allergy, indicat bernadette of ongoing sensitization 0.70-3.49 kU/L Class 2: ??Moderate level of allergy, in dicative of stronger ongoing sensitization 3.50-17.49 kU/L Class 3: ??High level of allergy, indica tive of high level sensitization 17.5-49.9 kU/L Class 4: Very high level of allergy, ind icative of very high level sensitization 50.0-100 kU/L Class 5: Very high level of allergy, ind icative of very high level sensitization >100 kU/L Class 6: Very high level of allergy, ind icative of very high level sensitization Specimen Anatomical Collection Method Collection Time Receive d Time (Source) Location / / Volume Laterality Blood specimen 01/10/2021 2:56 PM 021 7:29 (specimen) EDT AM EDT Resulting Agency Comment Spec In Lab Grazyna Sanchez MD IMMUNOLOGY ORDERABLES Performing Organization Address City/[facility]/ZIP Code Phon e Number [address] Ragweed, short/ common IgE (01/10/2021 2:56 PM EDT) athologist Signature Ragweed IgE <0.35 kU/L [facility] LABORATORY Comment: Reference Ranges <0.35 kU/L Class 0: ??Normal 0.35-0.69 kU/L Class 1: ??Low level of allergy, indicat bernadette of ongoing sensitization 0.70-3.49 kU/L Class 2: ??Moderate level of allergy, in dicative of stronger ongoing sensitization 3.50-17.49 kU/L Class 3: ??High level of allergy, indica tive of high level sensitization 17.5-49.9 kU/L Class 4: Very high level of allergy, ind icative of very high level sensitization 50.0-100 kU/L Class 5: Very high level of allergy, ind icative of very high level sensitization >100 kU/L Class 6: Very high level of allergy, ind icative of very high level sensitization Specimen Anatomical Collection Method Collection Time Receive d Time (Source) Location / / Volume Laterality Blood specimen 01/10/2021 2:56 PM 021 7:29 (specimen) EDT AM EDT Resulting Agency Comment Spec In Lab Grazyna Sanchez MD IMMUNOLOGY ORDERABLES Performing Organization Address City/State/ZIP Code Phon e Number [place] [phone] Alec Grass IgE (01/10/2021 2:56 PM EDT) athologist Signature Alec Grass <0.35 kU/L [facility] LABORATORY Comment: Reference Ranges <0.35 kU/L Class 0: ??Normal 0.35-0.69 kU/L Class 1: ??Low level of allergy, indicat bernadette of ongoing sensitization 0.70-3.49 kU/L Class 2: ??Moderate level of allergy, in dicative of stronger ongoing sensitization 3.50-17.49 kU/L Class 3: ??High level of allergy, indica tive of high level sensitization 17.5-49.9 kU/L Class 4: Very high level of allergy, ind icative of very high level sensitization 50.0-100 kU/L Class 5: Very high level of allergy, ind icative of very high level sensitization >100 kU/L Class 6: Very high level of allergy, ind icative of very high level sensitization Specimen Anatomical Collection Method Collection Time Receive d Time (Source) Location / / Volume Laterality Blood specimen 01/10/2021 2:56 PM 021 7:29 (specimen) EDT AM EDT Resulting Agency Comment Spec In Lab Grazyna Sanchez MD IMMUNOLOGY ORDERABLES Performing Organization Address City/[facility]/ZIP Code Phon e Number [address] Dog Epithelium IgE (01/10/2021 2:56 PM EDT) athologist Signature Dog Epi IgE <0.35 kU/L [facility] LABORATORY Comment: Reference Ranges <0.35 kU/L Class 0: ??Normal 0.35-0.69 kU/L Class 1: ??Low level of allergy, indicat bernadette of ongoing sensitization 0.70-3.49 kU/L Class 2: ??Moderate level of allergy, in dicative of stronger ongoing sensitization 3.50-17.49 kU/L Class 3: ??High level of allergy, indica tive of high level sensitization 17.5-49.9 kU/L Class 4: Very high level of allergy, ind icative of very high level sensitization 50.0-100 kU/L Class 5: Very high level of allergy, ind icative of very high level sensitization >100 kU/L Class 6: Very high level of allergy, ind icative of very high level sensitization Specimen Anatomical Collection Method Collection Time Receive d Time (Source) Location / / Volume Laterality Blood specimen 01/10/2021 2:56 PM 021 7:29 (specimen) EDT AM EDT Resulting Agency Comment Spec In Lab Grazyna Sanchez MD IMMUNOLOGY ORDERABLES Performing Organization Address City/[facility]/ZIP Code Phon e Number [address] Cat Epithelium IgE (01/10/2021 2:56 PM EDT) athologist Signature Cat Epi IgE <0.35 kU/L [facility] LABORATORY Comment: Reference Ranges <0.35 kU/L Class 0: ??Normal 0.35-0.69 kU/L Class 1: ??Low level of allergy, indicat bernadette of ongoing sensitization 0.70-3.49 kU/L Class 2: ??Moderate level of allergy, in dicative of stronger ongoing sensitization 3.50-17.49 kU/L Class 3: ??High level of allergy, indica tive of high level sensitization 17.5-49.9 kU/L Class 4: Very high level of allergy, ind icative of very high level sensitization 50.0-100 kU/L Class 5: Very high level of allergy, ind icative of very high level sensitization >100 kU/L Class 6: Very high level of allergy, ind icative of very high level sensitization Specimen Anatomical Collection Method Collection Time Receive d Time (Source) Location / / Volume Laterality Blood specimen 01/10/2021 2:56 PM 021 7:29 (specimen) EDT AM EDT Resulting Agency Comment Spec In Lab Grazyna Sanchez MD IMMUNOLOGY ORDERABLES Performing Organization Address City/State/[facility] [place] [address] Beech IgE (01/10/2021 2:56 PM EDT) athologist Signature Beech IgE <0.35 kU/L [facility] LABORATORY Comment: Reference Ranges <0.35 kU/L Class 0: ??Normal 0.35-0.69 kU/L Class 1: ??Low level of allergy, indicat bernadette of ongoing sensitization 0.70-3.49 kU/L Class 2: ??Moderate level of allergy, in dicative of stronger ongoing sensitization 3.50-17.49 kU/L Class 3: ??High level of allergy, indica tive of high level sensitization 17.5-49.9 kU/L Class 4: Very high level of allergy, ind icative of very high level sensitization 50.0-100 kU/L Class 5: Very high level of allergy, ind icative of very high level sensitization >100 kU/L Class 6: Very high level of allergy, ind icative of very high level sensitization Specimen Anatomical Collection Method Collection Time Receive d Time (Source) Location / / Volume Laterality Blood specimen 01/10/2021 2:56 PM 021 7:29 (specimen) EDT AM EDT Resulting Agency Comment Spec In Lab Grazyna Sanchez MD IMMUNOLOGY ORDERABLES Performing Organization Address City/[facility]/ZIP Code Phon e Number [address] Elm IgE (01/10/2021 2:56 PM EDT) P athologist Signature Elm IgE <0.35 kU/L [facility] LABORATORY Comment: Reference Ranges <0.35 kU/L Class 0: ??Normal 0.35-0.69 kU/L Class 1: ??Low level of allergy, indicat bernadette of ongoing sensitization 0.70-3.49 kU/L Class 2: ??Moderate level of allergy, in dicative of stronger ongoing sensitization 3.50-17.49 kU/L Class 3: ??High level of allergy, indica tive of high level sensitization 17.5-49.9 kU/L Class 4: Very high level of allergy, ind icative of very high level sensitization 50.0-100 kU/L Class 5: Very high level of allergy, ind icative of very high level sensitization >100 kU/L Class 6: Very high level of allergy, ind icative of very high level sensitization Specimen Anatomical Collection Method Collection Time Receive d Time (Source) Location / / Volume Laterality Blood specimen 01/10/2021 2:56 PM 021 7:29 (specimen) EDT AM EDT Resulting Agency Comment Spec In Lab Grazyna Sanchez MD IMMUNOLOGY ORDERABLES Performing Organization Address [facility]/ZIP Code Phon e Number [address] [place] IgE (01/10/2021 2:56 PM EDT) P athologist Signature [place] IgE <0.35 kU/L [facility] LABORATORY Comment: Reference Ranges <0.35 kU/L Class 0: ??Normal 0.35-0.69 kU/L Class 1: ??Low level of allergy, indicat bernadette of ongoing sensitization 0.70-3.49 kU/L Class 2: ??Moderate level of allergy, in dicative of stronger ongoing sensitization 3.50-17.49 kU/L Class 3: ??High level of allergy, indica tive of high level sensitization 17.5-49.9 kU/L Class 4: Very high level of allergy, ind icative of very high level sensitization 50.0-100 kU/L Class 5: Very high level of allergy, ind icative of very high level sensitization >100 kU/L Class 6: Very high level of allergy, ind icative of very high level sensitization Specimen Anatomical Collection Method Collection Time Receive d Time (Source) Location / / Volume Laterality Blood specimen 01/10/2021 2:56 PM 021 7:29 (specimen) EDT AM EDT Resulting Agency Comment Spec In Lab Grazyna Sanchez MD IMMUNOLOGY ORDERABLES Performing Organization Address City/[facility]/ZIP Code Phon e Number [address] [place], White IgE (01/10/2021 2:56 PM EDT) athologist Signature White Bowen <0.35 kU/L [facility] LABORATORY Comment: Reference Ranges <0.35 kU/L Class 0: ??Normal 0.35-0.69 kU/L Class 1: ??Low level of allergy, indicat bernadette of ongoing sensitization 0.70-3.49 kU/L Class 2: ??Moderate level of allergy, in dicative of stronger ongoing sensitization 3.50-17.49 kU/L Class 3: ??High level of allergy, indica tive of high level sensitization 17.5-49.9 kU/L Class 4: Very high level of allergy, ind icative of very high level sensitization 50.0-100 kU/L Class 5: Very high level of allergy, ind icative of very high level sensitization >100 kU/L Class 6: Very high level of allergy, ind icative of very high level sensitization Specimen Anatomical Collection Method Collection Time Receive d Time (Source) Location / / Volume Laterality Blood specimen 01/10/2021 2:56 PM 021 7:29 (specimen) EDT AM EDT Resulting Agency Comment Spec In Lab Grazyna Sanchez MD IMMUNOLOGY ORDERABLES Performing Organization Address City/[facility]/ZIP Code Phon e Number [address] [place], White IgE (01/10/2021 2:56 PM EDT) athologist Signature Chalo Cannon IgE <0.35 kU/L [facility] LABORATORY Comment: Reference Ranges <0.35 kU/L Class 0: ??Normal 0.35-0.69 kU/L Class 1: ??Low level of allergy, indicat bernadette of ongoing sensitization 0.70-3.49 kU/L Class 2: ??Moderate level of allergy, in dicative of stronger ongoing sensitization 3.50-17.49 kU/L Class 3: ??High level of allergy, indica tive of high level sensitization 17.5-49.9 kU/L Class 4: Very high level of allergy, ind icative of very high level sensitization 50.0-100 kU/L Class 5: Very high level of allergy, ind icative of very high level sensitization >100 kU/L Class 6: Very high level of allergy, ind icative of very high level sensitization Specimen Anatomical Collection Method Collection Time Receive d Time (Source) Location / / Volume Laterality Blood specimen 01/10/2021 2:56 PM 021 7:29 (specimen) EDT AM EDT Resulting Agency Comment Spec In Lab Grazyna Sanchez MD IMMUNOLOGY ORDERABLES Performing Organization Address City/State/[place] [address] Pura / Dao Valenzuela IgE (01/10/2021 2:56 PM EDT) athologist Signature Box <0.35 kU/L [facility] IgE [facility] LABORATORY Comment: Reference Ranges <0.35 kU/L Class 0: ??Normal 0.35-0.69 kU/L Class 1: ??Low level of allergy, indicat bernadette of ongoing sensitization 0.70-3.49 kU/L Class 2: ??Moderate level of allergy, in dicative of stronger ongoing sensitization 3.50-17.49 kU/L Class 3: ??High level of allergy, indica tive of high level sensitization 17.5-49.9 kU/L Class 4: Very high level of allergy, ind icative of very high level sensitization 50.0-100 kU/L Class 5: Very high level of allergy, ind icative of very high level sensitization >100 kU/L Class 6: Very high level of allergy, ind icative of very high level sensitization Specimen Anatomical Collection Method Collection Time Receive d Time (Source) Location / / Volume Laterality Blood specimen 01/10/2021 2:56 PM 021 7:29 (specimen) EDT AM EDT Resulting Agency Comment Spec In Lab Grazyna Sanchez MD IMMUNOLOGY ORDERABLES Performing Organization Address City/[facility]/ZIP Code Phon e Number [address] Birch, larisa IgE (01/10/2021 2:56 PM EDT) athologist Signature Larisa Al <0.35 kU/L [facility] LABORATORY Comment: Reference Ranges <0.35 kU/L Class 0: ??Normal 0.35-0.69 kU/L Class 1: ??Low level of allergy, indicat bernadette of ongoing sensitization 0.70-3.49 kU/L Class 2: ??Moderate level of allergy, in dicative of stronger ongoing sensitization 3.50-17.49 kU/L Class 3: ??High level of allergy, indica tive of high level sensitization 17.5-49.9 kU/L Class 4: Very high level of allergy, ind icative of very high level sensitization 50.0-100 kU/L Class 5: Very high level of allergy, ind icative of very high level sensitization >100 kU/L Class 6: Very high level of allergy, ind icative of very high level sensitization Specimen Anatomical Collection Method Collection Time Receive d Time (Source) Location / / Volume Laterality Blood specimen 01/10/2021 2:56 PM 021 7:29 (specimen) EDT AM EDT Resulting Agency Comment Spec In Lab Grazyna Sanchez MD IMMUNOLOGY ORDERABLES Performing Organization Address City/[facility]/ZIP [facility] [place] [address] Immunoglobulin E (IgE) (01/10/2021 2:56 PM EDT) athologist Signature IgE 6 <=101 kU/L [facility] LABOR[facility] Comment: Pediatric age-specific reference ranges are reflected in result ranges. Adult reference ranges: <25 kU/L ??Normal 25-100 kU/L Equivocal >100 kU/L ??Elevated Specimen Anatomical Collection Method Collection Time Receive d Time (Source) Location / / Volume Laterality Blood specimen 01/10/2021 2:56 PM 021 7:29 (specimen) EDT AM EDT Resulting Agency Comment Spec In Lab Grazyna Sanchez MD IMMUNOLOGY ORDERABLES Performing Organization Address City/State/[place] [address] documented in this encounter Visit Diagnoses Diagnosis Rash Rash and other nonspecific skin eruption Chronic rhinitis documented in this encounter Care Teams Fur Farmer Relationship Specialty Start Date End Date Russell Oneil MD PCP - General 03/29/14 02/22/22 [address] [place] [address] documented as of this encounter
--- OUTSIDE RECORDS SUMMARY | 2022-07-27 10:49 | XMS_ITS | Encounter Summary ---
:2000 Author Organization [facility] [place] [address] Care Team Providers Name Role Phone Russell Oneil MD Primary Care Provider Reason for Visit Reason Comments Acne Encounter Details Date Type Department Care Team Description 01/06/2021 Office Visit Dermatology at [facility] Geovani Doyle MD Acne vulgaris [address] [facility] [address] [place] [address] DERMATOLOGY [phone] [place], [place] [address] (Wo rk) Social History Tobacco Use Types Packs/Day Years Used Date Smoking Tobacco: Never Smokeless Tobacco: Never Comments: no smoke exposure Alcohol Use Standard Drinks/Week Comments No 0 (1 standard drink = 0.6 oz pure alcoho l) Sex Assigned at Date Recorded Not on file documented as of this encounter Progress Notes Geovani Doyle MD - 01/06/2021 9:15 AM EDT Problem: 1.?Acne vulgaris, status post 4??months??of second course of isotretinoin. 2.?Follow-up??probable hidradenitis suppurativa, axillary vaults 3. 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 ??Status post 5-month course of isotretinoin completed September 2015 5. 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 ??History of Matthew Danlos syndrome Erin follows up for a 4-month check. She been doing well but had a deep-seated cystic lesion on theright preauricular cheek that she popped at work to relieve the pressure. Other than that she is been tolerating the isotretinoin well. Her acne is well controlled. She is seeing good improvement. She remains at the same dose for milligrams 1 p.o. twice daily. Physical examination reveals a pleasant 20-year-old woman who has a clear complexion today with no active deep-seated lesions. She still has healing sites on the upper chest and back from prior scarring acne vulgaris and some hypertrophic scarring from these lesions as well. Assessment and plan: Acne vulgaris, borderline scarring, status post 4 months of isotretinoin 1. Continue isotretinoin 40 mg 1 p.o. twice daily dispense #60 with 0 refills. This be called into her [facility] pharmacy in [place]. 2. control method remains hormonal patch and male latex condom 3. Urine test today was negative. [employer] website was accessed, counseling confirmed, andnegative test entered. 4. Return to clinic another month for repeat check. Will consider extending duration of therapy if needed to achieve complete response to the isotretinoin. CC: Russell Oneil MD documented in this encounter Plan of Treatment Not on filedocumented as of this encounter Visit Diagnoses Diagnosis Acne vulgaris Other acne documented in this encounter Care Teams Forge Operator Helper Relationship Specialty Start Date End Date Russell Oneil MD PCP - General 03/29/14 02/22/[address] [place] [id number] documented as of this encounter
--- OUTSIDE RECORDS SUMMARY | 2022-07-27 10:49 | XMS_ITS | Encounter Summary ---
:2000 Author Organization [facility] [address] Care Team Providers Name Role Phone Russell Oneil MD Primary Care Provider Reason for Visit Reason Comments Establish Care Right foot ankle pain Consultation (Routine) - Closed Specialty Diagnoses / Procedures Referred By Contact Refer red To Contact Orthopaedics Diagnoses right foot and ankle pain Gabbi Danlos Syndrome None Pardeep Jacobo MD None [facility] [address] ORTHOPAEDIC SURG [place] [phone] Phone: Fax: Referral ID Status Reason Start Date Expiration Date Visits V isits Requested Authorized [id number] Closed Consult, 08/30/2020 08/30/2021 1 1 Test & Treat Encounter Details Date Type Department Care Team Description 09/27/2020 Office Visit [place] [facility] [place]ardeep Jacobo MD Closed fracture of [facility] sesamoid bone [facility] [place] [address] ORTHOPAEDIC delayed healing [phone] SURGERY [place] [address] Social History Tobacco Use Types Packs/Day Years Used Date Smoking Tobacco: Never Smokeless Tobacco: Former Comments: no smoke exposure Alcohol Use Standard Drinks/Week Comments No 0 (1 standard drink = 0.6 oz pure alcoho l) Sex Assigned at Date Recorded Not on file documented as of this encounter Last Filed Vital Signs Vital Sign Reading Time Taken Comments Blood Pressure 129/60 09/27/2020 11:25 AM EST Pulse 92 09/27/2020 11:25 AM EST Temperature - - Respiratory Rate - - Oxygen Saturation - - Inhaled Oxygen Concentration - - Weight 86.2 kg (190 lb) 09/27/2020 11:25 AM EST reporte d Height 162.6 cm (5' 4) 09/27/2020 11:25 AM EST reporte d Body Mass Index 32.61 09/27/2020 11:25 AM EST documented in this encounter Progress Notes Pardeep Jacobo MD - 09/27/2020 11:20 AM EST Chief complaint: Problem List Items Addressed This Visit Closed fracture of sesamoid bone of right foot with delayed healing History of present illness: Ivon Mcqueen is a 20 y.o. 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 She has persisted with pain since that time. She has a self-reported high tolerance for pain but has had discomfort throughout her foot since that time. The pain can be underneath her first metatarsal head, but also along her medial midfoot towards her ankle her plantar foot midfoot, and the dorsal aspect of her foot. She describes altered sensation in her foot since the time of the injury. She describes occasional color changes in her foot which she will ask her family members about. She has not seen a neurologist and has worn no special inserts. She was treated with a short walker boot which she found even more uncomfortable, specifically on the undersurface of her first MTP joint. Past medical history: Patient Active Problem List Diagnosis Date Noted ??? Closed fracture of sesamoid bone of right foot with delayed healing 09/27/2020 ??? 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 PCOS (polycystic ovarian syndrome) 07/23/2017 ??? Sprain of ankle 02/28/2017 ??? Hirsutism 10/14/2016 ??? Chronic pelvic pain in female 10/14/2016 ??? Eczema 10/07/2016 ??? Acne vulgaris 12/13/2014 ??? Encounter for long-term (current) use of other medications 03/29/2014 Medications: ??? ISOtretinoin (ACCUTANE) 40 mg Capsule ??? omeprazole (PriLOSEC) 40 mg Capsule, Delayed Release(E.C.) ??? norelgestrom-ethinyl estradiol (ORTHO EVRA) 150-35 mcg/24 hr Patch Weekly ??? triamcinolone (KENALOG) 0.1 % Cream ??? norgestimate-ethinyl estradiol (SPRINTEC-28) 0.25-35 mg-mcg Tablet ??? polyethylene glycol (MIRALAX) 17 gram/dose Powder ??? SUMAtriptan (IMITREX) 100 mg Tablet ??? spironolactone (Aldactone) 100 mg Tablet ??? Naproxen (EC-NAPROSYN) 375 mg Tablet, Delayed Release (E.C.) ??? ketorolac (TORADOL) 10 mg Tablet ??? Ranitidine HCl (ZANTAC) 300 mg Capsule ??? cyproheptadine (PERIACTIN) 4 mg Tablet Allergies: Allergies Allergen Reactions ??? Ketamine ??? Pollen Extracts Other (See Comments) Social history: Social History Tobacco Use ??? Smoking status: Never Smoker ??? Smokeless tobacco: Former User ??? Tobacco comment: no smoke exposure Substance Use Topics ??? Alcohol use: No Review of systems: No chest pain or shortness of breath No fevers, night sweats or chills Vital signs: Temp: -- Physical Exam: No apparent distress. Examination of the right foot reveals intact but altered sensation on the dorsal and plantar aspect of the foot as well as in the first webspace. She has a palpable dorsalis pedisand posterior tibial pulse. She has pain with palpation at the area of the tibial sesamoid. Forced great toe dorsiflexion reproduces discomfort. She has mild pain with palpation about her midfoot and hindfoot. She has no skin breakdown. Imaging: Personal review and interpretation of the patient's imaging reveals: X-ray and MRI of her right foot were reviewed. X-rays show what appears to be either a sesamoid fracture or bipartite sesamoid. On MRI, she does have increased signal on T2 on either side of what appears to be a persistent fracture line of her tibial sesamoid. No other significant pathology on my read. Formal read from radiology were not available. Assessment: 20 y.o. year-old female with right foot pain, some of which is in keeping with injury toher tibial sesamoid, some of which may be due to hypersensitivity such as complex regional pain syndrome. Plan: We discussed her symptoms and her imaging. I think that getting her a custom insert with a stiff forefoot shank and a cut out for her tibial sesamoid as well as having her see neurology to pursuethe possibility of neurologic hypersensitivity would be the next best step. If neurology does not think that complex regional pain syndrome is at play or that there are treatment options or could be helpful, and she continues to have discomfort even in the special insert, we could consider fixation versus excision of her tibial sesamoid. Follow up: 2 to 3 months to check on progress. This plan was discussed with the patient and they are in agreement. All of the patient's questions were answered. In this encounter, I performed the following: Review of external notes?: n Review of test results?: y Interpretation of tests?: y Discussion of management and test interpretation?: y Decision regarding minor or major surgery?: n The above dictation was made with voice recognition software documented in this encounter Plan of Treatment Not on filedocumented as of this encounter Visit Diagnoses Diagnosis Closed fracture of sesamoid bone of righ t foot with delayed healing documented in this encounter Care Teams Manager Emergency Relationship Specialty Start Date End Date Russell Oneil MD PCP - General 03/29/14 02/22/22 8 [place] [address] documented as of this encounter
--- OUTSIDE RECORDS SUMMARY | 2022-07-27 10:49 | XMS_ITS | Encounter Summary ---
:2000 Author Organization [facility] [address] Care Team Providers Name Role Phone Russell Oneil MD Primary Care Provider Reason for Visit Reason Comments Abdominal Pain Encounter Details Date Type Department Care Team Description 10/25/2017 Office Visit Pediatric Amisha, Shova, Chronic abdom inal pain; Gastroenterology at [facility] Right [place] [address] [phone] [place] [address] Social History Tobacco Use Types Packs/Day Years Used Date Smoking Tobacco: Never Smokeless Tobacco: Former Alcohol Use Standard Drinks/Week Comments No 0 (1 standard drink = 0.6 oz pure alcoho l) Sex Assigned at Date Recorded Not on file documented as of this encounter Last Filed Vital Signs Vital Sign Reading Time Taken Comments Blood Pressure 130/74 10/25/2017 1:20 PM EST Pulse 94 10/25/2017 1:20 PM EST Temperature 36.9 ??C (98.4 ??F) 10/25/2017 1:20 PM EST Respiratory Rate - - Oxygen Saturation - - Inhaled Oxygen Concentration - - Weight 73.1 kg (161 lb 3.2 oz) 10/25/2017 1:20 PM EST Height 162.6 cm (5' 4) 10/25/2017 1:20 PM EST Body Mass Index 27.67 10/25/2017 1:20 PM EST Body Mass Index Percentile 91.77 % 10/25/2017 1:20 PM ES T Growth Chart: CDC (Girls, 2-20 Years) documented in this encounter Progress Notes Jennifer Lion MD - 10/25/2017 1:00 PM EST I saw Ivon Mcqueen 17 y.o. female for outpatient consultation [facility] at the request of Russell Oneil MD Chief Complaint Patient presents with ??? Abdominal Pain HPI: Ivon is here for follow-up of ongoing multiple GI symptoms. She is here with her mother. She was doing clinically better. Her workup which included blood work, EGD and colonoscopy with biopsy have been normal. Except for mildly elevated fecal calprotectin at 74. Recently she has developed a new intermittent right flank pain. She has had 2 bad episodes of this pain. Gets this pain intermittently. Recent CT scan abdomen was normal. Her right lower quadrant pain that she used to get in the past has improved, gets it occasionally-not as bad in frequency and intensity. Voiding/Stooling well. Takes 1 capfull miralax daily. No dyspepsia. She has had few chest pains.No SOB. No palpitations. Appetite: fluctuates. Energy is ok. She passed out during one of the pain episodes recently . Blood work, US abd abd, CXR, CT scan abd -all normal. ROS: 12 point review of systems negative except as stated above Allergies Allergen Reactions ??? Ketamine Patient Active Problem List Diagnosis Code ??? Acne vulgaris L70.0 ??? Eczema L30.9 ??? Hirsutism L68.0 ??? Chronic pelvic pain in female R10.2, G89.29 ??? Sprain of ankle S93.409A ??? Encounter for long-term (current) use of other medications Z79.899 ??? PCOS (polycystic ovarian syndrome) E28.2 Family History Problem (# of Occurrences) Relation (Name,Age of Onset) Cancer (1) Maternal Grandmother: Brain Depression (1) Mother Diabetes (1) Paternal Grandmother Hearing Loss (1) Mother Heart Disease (2) Mother: PVCs, Maternal Grandmother Hyperlipidemia (1) Father Hypertension (3) Maternal Grandfather, Maternal Grandmother, Paternal Grandmother Obesity (1) Maternal Grandfather Substance Abuse (1) Maternal Grandmother Negative family history of: Ulcerative Colitis, Crohn Disease, Autoimmune Disorder, Thyroid Disease Social History Social History ??? Marital status: Single Spouse name: N/A ??? Number of children: N/A ??? Years of education: N/A Occupational History ??? Not on file. Social History Main Topics ??? Smoking status: Never Smoker ??? Smokeless tobacco: Former User ??? Alcohol use No ??? Drug use: No ??? Sexual activity: Not on file Other Topics Concern ??? Not on file Social History Narrative 10 th grade Current Outpatient Prescriptions on File Prior to Visit Medication Sig Dispense Refill ??? norelgestrom-ethinyl estradiol (ORTHO EVRA) 150-35 mcg/24 hr Patch Weekly Use as directed 3 patch 3 ??? minocycline (MINOCIN;DYNACIN) 100 mg Capsule Take 1 capsule by mouth 2 times daily. 180 capsule 1 ??? hyoscyamine (LEVSIN SL) 0.125 mg Tablet, Sublingual Take 1 tablet by mouth every 6 hours as needed for Cramping for up to 360 days. 60 tablet 3 ??? cyproheptadine (PERIACTIN) 4 mg Tablet 0 ??? SUMAtriptan (IMITREX) 100 mg Tablet 0 ??? clindamycin (CLEOCIN T) 1 % Solution Apply to face/chest twice daily after washing 60 mL 5 ??? spironolactone (ALDACTONE) 100 mg Tablet Take 1 tablet by mouth 2 times daily. 180 tablet 3 ??? medroxyPROGESTERone (PROVERA) 10 mg Tablet Take 1 tablet by mouth daily. (Patient not taking: Reported on 07/23/2017) 14 tablet 0 No current facility-administered medications on file prior to visit. Wt Readings from Last 3 Encounters: 10/25/17 73.1 kg (161 lb 3.2 oz) (91 %)* 09/20/17 74.6 kg (164 lb 6.4 oz) (92 %)* 07/23/17 73.2 kg (161 lb 6 oz) (91 %)* * Growth percentiles are based on CDC 2-20 Years data. Ht Readings from Last 3 Encounters: 10/25/17 162.6 cm (5' 4) (47 %)* 09/20/17 161.9 cm (5' 3.75) (44 %)* 07/23/17 162.7 cm (5' 4.06) (49 %)* * Growth percentiles are based on CDC 2-20 Years data. Body mass index is 27.67 kg/(m^2). 92 %ile based on CDC 2-20 Years BMI-for-age data using vitals from 10/25/2017. 91 %ile based on CDC 2-20 Years [id number] data using vitals from 10/25/2017. 47 %ile based on CDC 2-20 Years [id number]-[id number] data using vitals from 10/25/2017. Most Recent Vitals: 10/25/17 1320 BP: 130/74 Pulse: 94 Temp: 36.9 ??C (98.4 ??F) PainSc: 0 - No pain Physical Exam: General appearance: Alert, Active, No acute distress, No pallor, No cyanosis, No icterus HEENT: Normocephalic, atraumatic, No oral sores, No cervical lymphadenopathy CVS: s1 s2 normal, regular rate, rhythm, no murmur RESPI : clear to ascultation b/l, no added sounds ABDOMEN: Soft, Non tender, non distended, no organomegaly noted, BS present SKIN: No rash EXTREMITY:Normal tone/strength b/l, No clubbing SECURITY ADVISOR: No focal neurological deficit GENITAL/PERIANAL INSPECTION: deferred A/P: Ivon is a 17 years old female here for follow-up evaluation of abdominal pain. Physical exam here today is reassuring. Her growth chart is reassuring. Extensive workup so far which includes blood work,EGD and colonoscopy with biopsy, ultrasound abdomen, CT scan abdomen and all have been normal. She re ports significant improvement in her ongoing GI symptoms. However she is recently had right flank pain. Workup for which has been normal as well. Reassuring that her elevated liver numbers have normalized as well. Overall she feels better. No active recommendation from GI standpoint at this time. Follow-up with PCP for more episodes of chest pain. Reassuring that her repeat fecal calprotectin normalized. Reassuring that her Liver function tests normalized. We will follow-up in the GI clinic if needed. Chronic abdominal pain Right lower quadrant abdominal pain Thank you for allowing me to participate in the care of Ivno Mcqueen. Please feel free to contact my office at [phone] for further questions and concerns. Sincerely, Jennifer Lion MD documented in this encounter Plan of Treatment Not on filedocumented as of this encounter Visit Diagnoses Diagnosis Chronic abdominal pain Abdominal pain, unspecified site Right lower quadrant abdominal pain Abdominal pain, right lower quadrant documented in this encounter Care Teams Deputy Court Clerk Relationship Specialty Start Date End Date Russell Oneil MD PCP - General 03/29/14 02/22/22 [address] [place] [address] documented as of this encounter
--- OUTSIDE RECORDS SUMMARY | 2022-07-27 10:49 | XMS_ITS | Encounter Summary ---
:2000 Author Organization [facility] [place] [address] Care Team Providers Name Role Phone Russell Oneil MD Primary Care Provider Reason for Visit Reason Comments Acne Encounter Details Date Type Department Care Team Description 08/30/2017 Office Visit Dermatology at [facility] Geovani Doyle MD Acne vulgaris [address] [facility] [address] [place] [address] DERMATOLOGY [phone] [place], [place] [address] (Wo rk) Social History Tobacco Use Types Packs/Day Years Used Date Smoking Tobacco: Never Smokeless Tobacco: Former Alcohol Use Standard Drinks/Week Comments No 0 (1 standard drink = 0.6 oz pure alcoho l) Sex Assigned at Date Recorded Not on file documented as of this encounter Progress Notes Geovani Doyle MD - 08/30/2017 3:45 PM EST PROBLEM: 1. Acne vulgaris, mild recurrence. 2. Status post 5-month course of isotretinoin, completed 09/2015. Ivon is here today with her mother, Caitlyn. Ivon follows up and after last being seen in 10/2016 did beautifully all summer long and into the fall. Her acne was quiescent. About 6 months ago she was started on spironolactone by Endocrinology [place] [facility] for hirsutism. Unfortunately, over the last month or two she has developed some deep-seated acneiform papulopustule lesions on the lateral jawlines, in the chin, some on her back. Her menstrual cycles are very regular. She is pleased about that. She is set up to see Rheumatology soon regarding easy cartilage tears and injuries from minor falls. She has had meniscus tears, easily sprained ankles. Physical examination reveals a pleasant 17-year-old who has inflammatory papulopustule lesions along the lateral jawline and chin. She has a few papulopustules also on the upper back. Fortunately, she does not have any deep-seated scarring lesions. Certainly, her acne today is still much, much improved compared to baseline before her course of Accutane. A/P: Acne vulgaris, mild recurrence, status post course of isotretinoin. a. Recommend that we begin minocycline again 100 mg 1 p.o. b.i.d., dispense #180 for a 3-months' supply with 1 refill. b. If not seeing improvement within 6 weeks, call to let me know. Could consider another course of isotretinoin or other oral antibiotic first. c. Recommend I see her again in another 6 months for repeat check, and we hopefully will be able to taper down and off of minocycline at that time. d. Can certainly continue on spironolactone simultaneous with her course of minocycline. Also continue her cyproheptadine as needed and Imitrex (sumatriptan). We will not restart her clindamycin, which was associated with excessive dryness for her face. Return to clinic 6 months. cc: Russell Oneil MD documented in this encounter Plan of Treatment Not on filedocumented as of this encounter Visit Diagnoses Diagnosis Acne vulgaris Other acne documented in this encounter Care Teams Systems Design Engineer Relationship Specialty Start Date End Date Russell Oneil MD PCP - General 03/29/14 02/22/22 8 [place] [id number] documented as of this encounter
--- OUTSIDE RECORDS SUMMARY | 2022-07-27 10:49 | XMS_ITS | Encounter Summary ---
:2000 Author Organization [facility] [place] [address] Care Team Providers Name Role Phone Russell Oneil MD Primary Care Provider Encounter Details Date Type Department Care Team Description 03/30/2018 [facility] [id number] [place] [id number] [place], [place] [address] [phone] Social History Tobacco Use Types Packs/Day Years Used Date Smoking Tobacco: Never Smokeless Tobacco: Former Alcohol Use Standard Drinks/Week Comments No 0 (1 standard drink = 0.6 oz pure alcoho l) Sex Assigned at Date Recorded Not on file documented as of this encounter Miscellaneous Notes Telephone Encounter - Martha Spivey MD - 03/30/2018 2:29 PM EDT Spoke to mom and advised to call office tomorrow. She is currently on week with no patch and I explained that waiting a day or two to start new patch will not be harmful to Ivon Telephone Encounter - Kelley Carias - 03/30/2018 12:28 PM EDT ----- Message from Kelley Carias sent at 03/30/2018 12:22 PM EDT ----- Contact: [facility] Caitlyn Provider paged: Martha Spivey MDTime paged: 12:23 PM Caller's FULL name and relationship to patient: Caitlyn - [facility] Callback number: [phone] Reason for call: [facility] calling stating the patients prescription for norelgestrom- ethinyl estradiol (ORTHO EVRA) 150-35 mcg/24 hr Patch Weekly is getting a decline from the insurance company, stating it's a non-preferred medication. The pharmacist is stating that the doctor needs to call the insurance company stating the prescription needs to be filled. Or an alternate medication needs to be prescribed. Patient is due for medication today. Department: Ped Endo Regular Provider: MD Roberto Carlos documented in this encounter Plan of Treatment Not on filedocumented as of this encounter Visit Diagnoses Not on filedocumented in this encounter Care Teams Geodesy Teacher Relationship Specialty Start Date End Date Russell Oneil MD PCP - General 03/29/14 02/22/22 8 [place] [address] documented as of this encounter
--- OUTSIDE RECORDS SUMMARY | 2022-07-27 10:49 | XMS_ITS | Encounter Summary ---
:2000 Author Organization [facility] [place] [address] Care Team Providers Name Role Phone Russell Oneil MD Primary Care Provider Reason for Visit Reason Comments Acne Encounter Details Date Type Department Care Team Description 10/06/2020 Office Visit Dermatology at Geovani Doyle, Acne vu lgaris; [facility] GOINS Ruptured epidermal cyst [address] DERMATOLOGY [place], [place] [id number] [phone] Social History Tobacco Use Types Packs/Day Years Used Date Smoking Tobacco: Never Smokeless Tobacco: Former Comments: no smoke exposure Alcohol Use Standard Drinks/Week Comments No 0 (1 standard drink = 0.6 oz pure alcoho l) Sex Assigned at Date Recorded Not on file documented as of this encounter Progress Notes Geovani Doyle MD - 10/06/2020 9:00 AM EST Problem: 1. ??Follow-up??probable hidradenitis suppurativa, axillary vaults 2. ??Acne vulgaris, status post 1 month of second course of isotretinoin. 3. 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 ??Status post 5-month course of isotretinoin completed September 2015 5. ??Being followed by [facility] [place] for pre-PCOS, treated??with Spironolactone 100 mg??twice daily 6. ??History of Matthew Danlos syndrome Ivon follows up and is status post 1 month of isotretinoin, her second course. She is doing well. Her acne is today much less active less painful on the lateral cheeks and on the jawline and neck. She not had any side effects other than xerosis cutis. She is able to control this fairly well with Chapstick Physical examination reveals inflammatory acne vulgaris with borderline scarring responding and improving on the lateral neck, upper presternal chest, and on the inguinal folds. Assessment and plan: Acne vulgaris, borderline scarring status post 1 month of isotretinoin 1. Continue isotretinoin 40 mg 1 p.o. twice daily. Dispense #60 with 0 refills. Will call sent to [facility] pharmacy in [place] 2. control will be hormonal patch and male latex condom 3. Urine patient test today was negative. This was entered into the [facility] website and counseling was confirmed 4. Return to clinic in another month for repeat check. 5. Reassured patient that we do not need check CBC and chemistries anymore during isotretinoin dosing. CC: Russell Oneil MD documented in this encounter Plan of Treatment Not on filedocumented as of this encounter Visit Diagnoses Diagnosis Acne vulgaris Other acne Ruptured epidermal cyst Sebaceous cyst documented in this encounter Care Teams Medical Screener Relationship Specialty Start Date End Date Russell Oneil MD PCP - General 03/29/14 02/22/[address] [place] [id number] documented as of this encounter
--- OUTSIDE RECORDS SUMMARY | 2022-07-27 10:49 | XMS_ITS | Encounter Summary ---
:2000 Author Organization [facility] [place] [address] Care Team Providers Name Role Phone Russell Oneil MD Primary Care Provider Reason for Visit Reason Comments Follow-up Acne Encounter Details Date Type Department Care Team Description 05/28/2019 Office Visit Dermatology at [facility], Acne vu lgaris; Sully GOINS Ruptured epidermal cyst [address] Frantz B DERMATOLOGY [place], [place] [phone] Social History Tobacco Use Types Packs/Day Years Used Date Smoking Tobacco: Never Smokeless Tobacco: Former Comments: no smoke exposure Alcohol Use Standard Drinks/Week Comments No 0 (1 standard drink = 0.6 oz pure alcoho l) Sex Assigned at Date Recorded Not on file documented as of this encounter Progress Notes Geovani Doyle MD - 05/28/2019 8:45 AM EDT Problem: 1. Follow-up probable hidradenitis suppurativa, axillary vaults 2. Acne vulgaris controlled with Bactrim double strength 1 p.o. twice daily 3. History of furuncles bilateral at axillary vaults and intramammary chest 4. Status post 5-month course of isotretinoin completed September 2015 5. [place] [facility] [place] for pre-PCOS, treated with Spironolactone 100 mg twice daily 6. History of Matthew Danlos syndrome Ivon follows up and is been doing about the same. Despite being on Bactrim she is getting intermittent cysts which become ruptured painful and are then drained by Dr. Oneil. 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 She been doing college courses locally in the meantime. She remains on spironolactone and this has her menstrual cycles normalized. She has not had any recent labs checking a CBC/white blood cell count. We need to rule out leukopenia. Spent a year since her last CBC. Physical examination was a pleasant 18-year-old who today has no active lesions. And her face is clear she has no chest lesions. Assessment and plan: Hidradenitis suppurativa, axillary vault 1. Currently quiescent 2. Taper Bactrim double strength 1 p.o. a day till she completes current bottle then discontinue 3. Begin use of clindamycin 1% solution apply twice daily to affected/areas prone to cyst formation in her axillary vaults. Dispense 60 mL's with 5 refills 4. Today check CBC to rule out leukopenia on Bactrim. If she has significant flaring, will resume it. 5. Return to clinic in another 6 months for repeat check. Acne vulgaris 1. This is been fairly quiescent 2. We will monitor off of Bactrim. CC: Russell Oneil MD documented in this encounter Plan of Treatment Not on filedocumented as of this encounter Visit Diagnoses Diagnosis Acne vulgaris Other acne Ruptured epidermal cyst Sebaceous cyst documented in this encounter Care Teams Knifeman Relationship Specialty Start Date End Date Russell Oneil MD PCP - General 03/29/14 02/22/22 8 [place] [address] documented as of this encounter
--- OUTSIDE RECORDS SUMMARY | 2022-07-27 10:49 | XMS_ITS | Encounter Summary ---
:2000 Author Organization [facility] [place] [address] Care Team Providers Name Role Phone Russell Oneil MD Primary Care Provider Reason for Referral Physical Therapy (Routine) - Specialty Diagnoses / Procedures Referred By Contact Refer red To Contact Physical Therapy Diagnoses Ankle instability, right Pardeep Jacobo MD [facility] [place] [address] Referral ID Status Reason Start Date Expiration Date Visits V isits Requested Authorized [id number] Evaluate and 01/17/2021 07/16/2021 12 12 Treat Reason for Visit Reason Comments Follow-up RIGHT FOOT ANKLE PAIN Encounter Details Date Type Department Care Team Description 01/17/2021 Office Visit [place]edics [place] [facility] Pardeep Jacobo MD Ankle instability, [place] [phone] ORTHOPAEDIC [phone] SURGERY [place] [address] Social History Tobacco Use Types Packs/Day Years Used Date Smoking Tobacco: Never Smokeless Tobacco: Never Comments: no smoke exposure Alcohol Use Standard Drinks/Week Comments No 0 (1 standard drink = 0.6 oz pure alcoho l) Sex Assigned at Date Recorded Not on file documented as of this encounter Last Filed Vital Signs Vital Sign Reading Time Taken Comments Blood Pressure 126/70 01/17/2021 9:31 AM EDT Pulse 83 01/17/2021 9:31 AM EDT Temperature - - Respiratory Rate - - Oxygen Saturation - - Inhaled Oxygen Concentration - - Weight 85.7 kg (188 lb 15 oz) 01/17/2021 9:31 AM EDT co pied Height 162.6 cm (5' 4) 01/17/2021 9:31 AM EDT reported Body Mass Index 32.43 01/17/2021 9:31 AM EDT documented in this encounter Progress Notes Pardeep Jacobo MD - 01/17/2021 10:00 AM EDT Chief complaint: Follow-up for right tibial sesamoid pain, as well as new right ankle instability Problem List Items Addressed This Visit Ankle instability, right History of present illness: Ivon Mcqueen is a 20 y.o. year-old female who I saw previously in regards to her right tibial sesamoid. At that point, she had an MRI that showed high signal in either afracture of her tibial sesamoid or an injury of the synchondrosis. She also had a host of aspects tothe pain in her right foot that could not be explained by a sesamoid injury. We agreed to move forward with a custom insert with a cut out for her sesamoid and a Alberto's extension, but she was unable to get these due to the cost of them. She feels that while she has some discomfort in her sesamoid, abigger problem for her has been the evolution of ankle instability in her right ankle. She will invert or tisha her ankle. Review of the chart shows that she has a history of ankle sprains going back at least 4 years. 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 She wears over the ankle boots as well as a lace up ankle brace. 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 Of note, she was seen by neurology who did not feel that she had a neurologic source of her pain that could be treated. Past medical history: Patient Active Problem List Diagnosis Date Noted ??? Ankle instability, right 01/17/2021 ??? Constipation 01/06/2021 ??? Gastritis 01/06/2021 ??? Migraine 01/06/2021 ??? Solitary pulmonary nodule 01/06/2021 ??? Unspecified injury of right wrist, hand and finger(s), initial encounter 01/06/2021 ??? Closed fracture of sesamoid bone of right foot with delayed healing 09/27/2020 ??? 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 Polycystic ovaries 07/23/2017 ??? Sprain of ankle 02/28/2017 ??? Hirsutism 10/14/2016 ??? Chronic pelvic pain in female 10/14/2016 ??? Eczema 10/07/2016 ??? Acne vulgaris 12/13/2014 ??? Encounter for long-term (current) use of other medications 03/29/2014 Medications: ??? ISOtretinoin (ACCUTANE) 40 mg Capsule ??? norelgestrom-ethinyl estradiol (ORTHO EVRA) 150-35 mcg/24 hr Patch Weekly ??? triamcinolone (KENALOG) 0.1 % Cream ??? polyethylene glycol (MIRALAX) 17 gram/dose Powder Allergies: Allergies Allergen Reactions ??? Ketamine ??? [...] Temp: -- Physical Exam: No apparent distress. Hindfoot alignment is normal. She has mild discomfort with palpation of the tibial sesamoid. She came in today wearing flip-flops. She has symmetric anterior drawer and talar tilttesting. She has intact sensation of the dorsal plantar aspect of her foot and her toes are warm andwell-perfused. She gives way with testing to ankle dorsiflexion, plantarflexion, inversion and eversion equally. Imaging: Personal review and interpretation of the patient's imaging reveals: X-rays of her right foot and ankle reveal a persistent lucency at her sesamoid, that I think most likely represents a synchondrosis. X-rays of the ankle show no specific pathology. There is minimal to no tib-fib overlap, but this is very similar to x-rays taken last year. Assessment: 20 y.o. year-old female tolerable and resolving tibial sesamoiditis likely due to an injury to a synchondrosis, as well as more bothersome right ankle instability with weakness of all majormuscle groups on physical exam Plan: I think that focused physical therapy to come up with a home exercise program to strengthen the major muscle groups surrounding her ankle, as well as work on proprioceptive training, would be useful for her in the short in the long-term. I think that wearing her brace is still advisable when sheis in uncertain situations. She does not have asymmetry to her lateral ligament exam testing today, and her connective tissue disorder could be contributing to overall ligamentous laxity. If her sesamoid becomes a bigger problem I would suggest the inserts previously prescribed. Follow up: PRN This plan was discussed with the patient and they are in agreement. All of the patient's questions were answered. The above dictation was made with voice recognition software documented in this encounter Plan of Treatment Scheduled Referrals Name Type Priority Associated Diagnoses Order S chedule Referral to Outpatient Referral Routine Ankle instability, Or dered: Physical Therapy right 01/17/2021 documented as of this encounter Visit Diagnoses Diagnosis Ankle instability, right documented in this encounter Care Teams Steward/Stewardess Third Class Relationship Specialty Start Date End Date Russell Oneil MD PCP - General 03/29/14 02/22/22 8 [place] [address] documented as of this encounter
--- OUTSIDE RECORDS SUMMARY | 2022-07-27 10:49 | XMS_ITS | Encounter Summary ---
:2000 Author Organization [facility] [place] [address] Care Team Providers Name Role Phone Russell Oneil MD Primary Care Provider Reason for Visit Reason Onset Date Comments Medication Refill 11/19/2018 Encounter Details Date Type Department Care Team Description 11/19/2018 Refill Rheumatology at [facility] Farrah Betts, [place] [address] Social History Tobacco Use Types Packs/Day Years [...] on filedocumented in this encounter Care Teams Insurance Professional Relationship Specialty Start Date End Date Russell Oneil MD PCP - General 03/29/14 02/22/22 8 [place] [address] documented as of this encounter
--- OUTSIDE RECORDS SUMMARY | 2022-07-27 10:49 | XMS_ITS | Encounter Summary ---
:2000 Author Organization [facility] [place] [address] Care Team Providers Name Role Phone Russell Oneil MD Primary Care Provider Encounter Details Date Type Department Care Team Description 07/04/2018 Office Visit Pediatric Endocrinology Roberto [facility] PCOS (polycystic at [facility] Bailee Muñiz MD ovarian syndrome) [facility] [place] [address] PEDIATRIC [phone] ENDOCRINOLOGY [place] [address] Social History Tobacco Use Types Packs/Day Years Used Date Smoking Tobacco: Never Smokeless Tobacco: Former Comments: no smoke exposure Alcohol Use Standard Drinks/Week Comments No 0 (1 standard drink = 0.6 oz pure alcoho l) Sex Assigned at Date Recorded Not on file documented as of this encounter Last Filed Vital Signs Vital Sign Reading Time Taken Comments Blood Pressure 121/72 07/04/2018 10:19 AM EDT Pulse 96 07/04/2018 10:19 AM EDT Temperature - - Respiratory Rate - - Oxygen Saturation - - Inhaled Oxygen Concentration - - Weight 75.6 kg (166 lb 10.7 oz) 07/04/2018 10:19 AM EDT Height 162.4 cm (5' 3.94) 07/04/2018 10:19 AM EDT Body Mass Index 28.66 07/04/2018 10:19 AM EDT Body Mass Index Percentile 92.84 % 07/04/2018 10:19 AM EDT Growth Chart: CDC (Girls, 2-20 Years) documented in this encounter Progress Notes Bailee Azevedo MD - 07/04/2018 10:00 AM EDT Subjective: Patient ID: Ivon Mcqueen is a 18 y.o. female, here for follow up of PCOS. She was initially evaluated 12/2016. She had mildly elevated DHEA-S and sl low SHBG. She last had metabolic screen 03/2017 and was last seen 4 months ago. HPI She was seen in ED 04/29/2018 due to left hand numbness. Couldn't pickup driver her phone and started moving up her arm. Left side of face went numb and started drooping. She became disoriented. In the ED, she had bloodwork done and was going to be discharged, but mom insisted on having CT. CT was normal. Family followed up with someone in PCP office the following day and saw PCP a couple weeks after. Due to concerns she could have had a stroke, she was started on low dose aspirin started. At that time, she was finally approved for ortho evra and switched back to that. Menses: started ortho evra 03/2017, had to transition to oral contraceptive due to insurance issues 04/2018, insurance then approved patch again and she has been back on the patch since the end of April. [] Yes [x] No Irregular--now having menses regularly. In interim, had pelvic US done during abdominal pain, was normal. No other major cramping/abdominal pain. [x] Yes [] No Dysmenorrhea---can be painful, advil prn Hirsutism--spironolactone 100 mg BID [x] Yes [] No Location(s): few on chest, improved. On abdomen hair still a little dark [x] Yes [] No Bothersome, but some improvement. [x] Yes [] No Hair removal: plucks, takes longer to grow back, does not need to remove hair that often Acne--was on minocycline, now on bactrim and acne has had no issue. [] Yes [x] No Location(s): Around mouth, nose, cheeks, but not much on chest [] Yes [x] No Bothersome She is still having some boils in axillae, painful. Lifestyle modifications: Stable weight Social History: Lives with both parents and one brother. In 12th grade with good academic performance. Participates in field hockey. Father works from [employer], mother employed as a peoplesoft business analyst. Past Medical History, Surgical History, and Family History were reviewed and updated in the electronic record. Review of Systems Constitutional: Negative. HENT: Negative. Eyes: Negative. Respiratory: Negative. Cardiovascular: Negative. Gastrointestinal: Negative. Endocrine: Negative. Negative for polydipsia and polyuria. Genitourinary: Positive for pelvic pain. Musculoskeletal: Negative. Skin: acne Neurological: Negative. Psychiatric/Behavioral: Negative. Objective: BP 121/72 Pulse 96 Ht 162.4 cm (5' 3.94) Wt 75.6 kg (166 lb 10.7 oz) BMI 28.66 kg/m?? --> 93 %ile based on CDC (Girls, 2-20 Years) BMI-for-age based on body measurements available as of 07/04/2018. --> Blood pressure percentiles are 83 % systolic and 76 % diastolic based on the April 2017 AAP Clinical Practice Guideline. Blood pressure percentile targets: 90: 125/78, 95: 128/81, 95 + 12 mmH/93. This reading is in the elevated blood pressure range (BP >= 120/80). --> No LMP recorded. --> Growth velocity Physical Exam Constitutional: She appears well-developed. No distress. Overweight HENT: Mouth/Throat: Oropharynx is clear and moist. Eyes: Conjunctivae are normal. Pupils are equal, round, and reactive to light. No scleral icterus. Neck: Thyromegaly: no nodules. Cardiovascular: Normal rate and regular rhythm. No murmur heard. Pulmonary/Chest: Effort normal. She has no wheezes. Abdominal: Soft. She exhibits no distension and no mass. Genitourinary: No vaginal discharge found. Musculoskeletal: She exhibits no edema. Lymphadenopathy: She has no cervical adenopathy. Neurological: She is alert. She has normal reflexes. Skin: Skin is warm. No rash noted. Axillary acanthosis nigricans. Acne scarring on chest, back, and face, no acne currently Manager Enterprise Content Management terminal hair on linea alba. No facial hair visible Psychiatric: She has a normal mood and affect. Her behavior is normal. Assessment and Plan: PCOS Acanthosis nigricans Ivon has been doing well since our last visit, with regular menses and no issues with hirsutism and acne. Continue current ortho evra patch (generic) and 200 mg of spironolactone. She had a neurologic event that could not be explained and without knowing the evaluation, it's unclear what happened. There is conflicting evidence whether the contraceptive patch can increase risk of thrombolytic events more than oral contraceptive, but she was on oral contraceptive at the time of the event. I would liketo better understand what occurred when she went to the ED and will ask the medical office secretary to track down those records. She has been well since that event and will continue ortho evra for now as she has had benefits in managing her PCOS. Follow up in 6 months. Bailee Azevedo MD Attending Physician Pediatric Endocrinology Co-director, Pediatric Clerkship Relationship Consultant Clinical Professor of Pediatrics [employer] at [facility] at [facility] Office: [phone] [place] Office: [phone] documented in this encounter Plan of Treatment Not on filedocumented as of this encounter Visit Diagnoses Diagnosis PCOS (polycystic ovarian syndrome) Polycystic ovaries documented in this encounter Care Teams Keno Clerk Relationship Specialty Start Date End Date Russell Oneil MD PCP - General 03/29/14 02/22/[address] [place] [id number] documented as of this encounter
--- OUTSIDE RECORDS SUMMARY | 2022-07-27 10:49 | XMS_ITS | Encounter Summary ---
:2000 Author Organization [facility] [place] [address] Care Team Providers Name Role Phone Cass Salvador Primary Care Provider Reason for Referral Consultation (Routine) - Denied Specialty Diagnoses / Procedures Referred By Contact Refer red To Contact Rheumatology Diagnoses Matthew-Danlos syndrome Cass Salvador PA [facility] [place] [address] [place] [address] [place] [address] Fax: Referral ID Status Reason Start Date Expiration Date Visits V isits Requested Authorized [id number] Denied Consult, Test 02/23/2022 02/23/2023 6 0 & Treat PCP Updated and/or Approved Encounter Details Date Type Department Care Team Description 02/23/2022 Transcribe Orders eDH Incoming Cass Salvador PA syndrome [phone] [place] [id number] Social History Tobacco Use Types Packs/Day Years Used Date Smoking Tobacco: Never Smokeless Tobacco: Never Comments: no smoke exposure Alcohol Use Standard Drinks/Week Comments No 0 (1 standard drink = 0.6 oz pure alcoho l) Sex Assigned at Date Recorded Not on file documented as of this encounter Plan of Treatment Scheduled Referrals Name Type Priority Associated Order Schedule Diagnoses Referral to Outpatient Referral Routine Matthew-Danlos Ordered : Rheumatology syndrome 02/23/2022 documented as of this encounter Visit Diagnoses Diagnosis Matthew-Danlos syndrome documented in this encounter Care Teams Professor Of Oceanography Relationship Specialty Start Date End Date Cass Salvador PA PCP - General Family Medicine 02/23/[address] [place] [address] documented as of this encounter
--- OUTSIDE RECORDS SUMMARY | 2022-07-27 10:49 | XMS_ITS | Encounter Summary ---
:2000 Author Organization [facility] [place] [address] Care Team Providers Name Role Phone Russell Oneil MD Primary Care Provider Reason for Visit Reason Onset Date Comments Medication Refill 06/20/2018 Encounter Details Date Type Department Care Team Description 06/20/2018 Refill Pediatric Endocrinology at [facility], Polycystic ovary [facility] [place] [address] Social History Tobacco Use Types Packs/Day Years [...] ovaries documented in this encounter Care Teams Furniture Cleaner Relationship Specialty Start Date End Date Russell Oneil MD PCP - General 03/29/14 02/22/22 8 [place] [address] documented as of this encounter
--- OUTSIDE RECORDS SUMMARY | 2022-07-27 10:49 | XMS_ITS | Encounter Summary ---
:2000 Author Organization [facility] [place] [address] Care Team Providers Name Role Phone Russell Oneil MD Primary Care Provider Encounter Details Date Type Department Care Team Description 06/27/2018 Office Visit Dermatology at [facility] Geovani Doyle MD Acne vulgaris [address] [facility] [address] [place] [address] DERMATOLOGY [phone] [place], [place] [address] (Wo rk) Social History Tobacco Use Types Packs/Day Years Used Date Smoking Tobacco: Never Smokeless Tobacco: Former Alcohol Use Standard Drinks/Week Comments No 0 (1 standard drink = 0.6 oz pure alcoho l) Sex Assigned at Date Recorded Not on file documented as of this encounter Progress Notes Geovani Doyle MD - 06/27/2018 9:30 AM EDT Problem: 1. Follow-up acne vulgaris controlled now with Bactrim double strength 1 p.o. twice daily 2. History of furuncles axillary vaults intramammary chest 3. Status post 5-month course of isotretinoin completed September 2015 4. Being followed by [facility] [place] for pre--PCO S, treated with spironolactone 100 twice daily Ivon follows up and is doing well. Her acne is been quiescent since I last saw her in March. She is tolerating the Bactrim well without side effects. We had started it back in March. Physical examination is reveals a pleasant 18-year-old woman whose acne vulgaris is clear. She currently has no furuncles in the axilla vaults nor on the inframammary chest. She has no involvement on the back or chest either. She is quite pleased with how she is doing overall. Assessment plan: Follow-up acne vulgaris and furunculosis, axillary vaults intra mammary chest 1. Currently well controlled with both spironolactone 100 mg p.o. twice daily with Bactrim double strength 1 p.o. twice daily 2. Today check CBC to rule out leukopenia with Bactrim 3. Decrease Bactrim dosing now to just daily. Continue the double strength. 4. Return to clinic now in 6 months for repeat check History of eczematous dermatitis 1. Patient told me today a patch of eczematous dermatitis on the right distal dorsal forearm. She does a lot of help around the house washing dishes and washes her hands frequently. 2. This appears to be mild eczematous dermatitis and I gave her some triamcinolone cream to use 0.1%apply twice daily to affected rash site until clear 15 g 1 refill. 3. Discussed sensitive skin care precautions as well. CC: Russell Oneil MD. documented in this encounter Miscellaneous Notes Addendum Note - Eric Angel LPN - 06/27/2018 9:30 AM EDT Addended by: ERIC ANGEL on: 06/27/2018 10:18 AM Modules accepted: Orders documented in this encounter Plan of Treatment Not on filedocumented as of this encounter Visit Diagnoses Diagnosis Acne vulgaris Other acne documented in this encounter Care Teams Carpenters Helper Relationship Specialty Start Date End Date Russell Oneil MD PCP - General 03/29/14 02/22/22 [address] [facility] [place] [address] documented as of this encounter
--- OUTSIDE RECORDS SUMMARY | 2022-07-27 10:49 | XMS_ITS | Encounter Summary ---
:2000 Author Organization [facility] [place] [address] Care Team Providers Name Role Phone Russell Oneil MD Primary Care Provider Reason for Visit Reason Onset Date Comments Triage 11/19/2018 Encounter Details Date Type Department Care Team Description 11/19/2018 Telephone Rheumatology at [facility] [place] [address] Social History Tobacco Use Types Packs/Day Years Used Date Smoking Tobacco: Never Smokeless Tobacco: Former Comments: no smoke exposure Alcohol Use Standard Drinks/Week Comments No 0 (1 standard drink = 0.6 oz pure alcoho l) Sex Assigned at Date Recorded Not on file documented as of this encounter Miscellaneous Notes Telephone Encounter - Farrah Betts RN - 11/19/2018 11:33 AM EDT Gray Navarro MD sent to Farrah Betts RN Caller: Unspecified (Today, 10:25 AM) ?? If she wants to try naprosyn it would be 375 BID Mom agrees to stop Advil and try Naprosyn. Will follow up in a couple of days. Telephone Encounter - Farrah Betts RN - 11/19/2018 11:16 AM EDT RTC to Mom Caitlyn in regards to Bilateral Ankle pain over the last week. States pain is now in herknees and hips and Ivon is having difficulty accepting this pain. Takes Ibuprofen/Advil every 4 hours with minimal relief alternates with Tylenol, had TIA in April and was started on daily Aspirin 81 mg, reports that this was thought to be related to Control Pill. Is now on Control patch. Denies any fevers,chills, or red, hot, swollen joints. Takes Bactrim for Cystic Acne twice daily. Denies any recent illnesses. I advised Mom that I would need to discuss a plan of care with Dr. Navarro and then I will call her back. documented in this encounter Plan of Treatment Not on filedocumented as of this encounter Visit Diagnoses Not on filedocumented in this encounter Care Teams Knot Bumper Relationship Specialty Start Date End Date Russell Oneil MD PCP - General 03/29/14 02/22/[address] [place] [id number] documented as of this encounter
--- OUTSIDE RECORDS SUMMARY | 2022-07-27 10:49 | XMS_ITS | Encounter Summary ---
:2000 Author Organization [facility] [place] [address] Care Team Providers Name Role Phone Russell Oneil MD Primary Care Provider Encounter Details Date Type Department Care Team Description 01/27/2019 Notes Only Pediatric Endocrinol ogy at [facility] Grazyna Buckley, [place] [address] Social History Tobacco Use Types Packs/Day Years Used Date Smoking Tobacco: Never Smokeless Tobacco: Former Comments: no smoke exposure Alcohol Use Standard Drinks/Week Comments No 0 (1 standard drink = 0.6 oz pure alcoho l) Sex Assigned at Date Recorded Not on file documented as of this encounter Progress Notes Grazyna Pantoja RN - 01/27/2019 2:16 PM EDT Ultrasound results scan documented in this encounter Plan of Treatment Not on filedocumented as of this encounter Visit Diagnoses Not on filedocumented in this encounter Care Teams Phlebotomist Associate Relationship Specialty Start Date End Date Russell Oneil MD PCP - General 03/29/14 02/22/[address] [place] [id number] documented as of this encounter
--- OUTSIDE RECORDS SUMMARY | 2022-07-27 10:49 | XMS_ITS | Encounter Summary ---
:2000 [place] [address] Care Team Providers Name Role Phone Russell Oneil MD Primary Care Provider Reason for Visit Reason Onset Date Comments Medication Refill 11/13/2018 Encounter Details Date Type Department Care Team Description 11/13/2018 Refill Pediatric Endocrin[place]gy [place] [facility] Jaylon Jaquez MD [facility] [place] [address] PEDIATRIC ENDOCRINOLOGY [phone] [place], [place] [address] (Wo rk) Social History Tobacco [...] Hirsutism documented in this encounter Care Teams Qc Scientist Relationship Specialty Start Date End Date Russell Oneil MD PCP - General 03/29/14 02/22/22 [place] [address] documented as of this encounter
--- OUTSIDE RECORDS SUMMARY | 2022-07-27 10:49 | XMS_ITS | Encounter Summary ---
:2000 Author Organization [facility] [place] [address] Care Team Providers Name Role Phone Russell Oneil MD Primary Care Provider Reason for Visit Reason Comments Follow-up Encounter Details Date Type Department Care Team Description 01/21/2018 Office Visit Pediatric Endocrinology Roberto Carlos, PCOS (polycystic at [facility] Bailee Muñiz MD ovarian syndrome) [facility] [place] [address] PEDIATRIC [phone] ENDOCRINOLOGY [place], [place] [address] Social History Tobacco Use Types Packs/Day Years Used Date Smoking Tobacco: Never Smokeless Tobacco: Former Alcohol Use Standard Drinks/Week Comments No 0 (1 standard drink = 0.6 oz pure alcoho l) Sex Assigned at Date Recorded Not on file documented as of this encounter Last Filed Vital Signs Vital Sign Reading Time Taken Comments Blood Pressure 129/74 01/21/2018 8:33 AM EDT Pulse 72 01/21/2018 8:33 AM EDT Temperature - - Respiratory Rate - - Oxygen Saturation 100% 01/21/2018 8:33 AM EDT Inhaled Oxygen Concentration - - Weight 73.3 kg (161 lb 9.6 oz) 01/21/2018 8:33 AM EDT Height 162.1 cm (5' 3.82) 01/21/2018 8:33 AM EDT Body Mass Index 27.9 01/21/2018 8:33 AM EDT Body Mass Index Percentile 91.95 % 01/21/2018 8:33 AM ED T Growth Chart: [facility] (Girls, 2-20 Years) documented in this encounter Progress Notes Gael-Bailee Wong MD - 01/21/2018 8:30 AM EDT Subjective: Patient ID: Ivon Mcqueen is a 17 y.o. female, here for follow up of PCOS. She was initially evaluated 12/2016. She had mildly elevated DHEA-S and sl low SHBG. She last had metabolic screen 03/2017 and was last seen 4 months ago. HPI Menses: started ortho evra 03/2017 [] Yes [x] No Irregular--now having menses regularly. When she takes off patch, period starts 3-4 days later. This last time, she had sharp pain in lower abdomen, right side. It felt different than menstrual cramps. It resolved after menses. Menses for that time was heavy. [x] Yes [] No Dysmenorrhea---can be painful, advil prn Hirsutism--spironolactone 100 mg BID [x] Yes [] No Location(s): few on chest, improved. On abdomen hair has lightened [x] Yes [] No Bothersome, but some improvement. [x] Yes [] No Hair removal: plucks, takes longer to grow back Acne--on minocycline, has been helpful [x] Yes [] No Location(s): still getting deeper ones on cheek, sometimes and chest [x] Yes [] No Bothersome She has been having some boils in axillae Lifestyle modifications: Weight loss (1 pounds) has been noted. She had lost 15 pounds at the last visit. Less snacking at night. She saw GI and rheumatology in interim. Social History: Lives with both parents and one brother. Just finished 10th grade with good academicperformance. Participates in field hockey. 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 Past Medical History, Surgical History, and Family History were reviewed and updated in the electronic record. Review of Systems Constitutional: Negative. HENT: Negative. Eyes: Negative. Respiratory: Negative. Cardiovascular: Negative. Gastrointestinal: Negative. Endocrine: Negative. Negative for polydipsia and polyuria. Genitourinary: Positive for pelvic pain. Musculoskeletal: Negative. Skin: acne Neurological: Negative. Psychiatric/Behavioral: Negative. Objective: BP 129/74 (BP Location (NBP): Right arm, Patient Position: Sitting, BP Cuff Sizes: Adult (25-34 cm)) Pulse 72 Ht 162.1 cm (5' 3.82) Wt 73.3 kg (161 lb 9.6 oz) LMP 12/23/2017 (Approximate) SpO2 100% BMI 27.9 kg/m2 --> 92 %ile based on CDC 2-20 Years BMI-for-age data using vitals from 01/21/2018. --> Blood pressure percentiles are 96 % systolic and 82 % diastolic based on the April 2017 AAP Clinical Practice Guideline. Blood pressure percentile targets: 90: 125/78, 95: 128/81, 95 + 12 mmH/93. This reading is in the elevated blood pressure range (BP >= 120/80). --> Patient's last menstrual period was 12/23/2017 (approximate). --> Growth velocity Physical Exam Constitutional: She [...] warm. No rash noted. Axillary acanthosis nigricans. 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 No facial hair visible Psychiatric: She has a normal mood and affect. Her behavior is normal. Assessment and Plan: PCOS Acanthosis nigricans Ivon has been doing well since our last visit, with continued weight loss and improvement in hirsutism, acne. She had one episode that seems c/w hemorrhagic cyst that ruptured and we will continue to follow clinically. Family to call if she has the same sharp pain leading up to menses, as we may plan to obtain pelvic US. Continue current ortho evra patch (generic) and 200 mg of spironolactone. She may be developing hydradenitis suppurativa and I asked family to follow up with PCP or over short and damage clerk ifworsens; she can try warm compresses to area to encourage drainage of boil. Bailee Azevedo MD Attending Physician Pediatric Endocrinology [facility] Office: [phone] [place] Office: [phone] Pager ID [phone] documented in this encounter Plan of Treatment Not on filedocumented as of this encounter Visit Diagnoses Diagnosis PCOS (polycystic ovarian syndrome) Polycystic ovaries documented in this encounter Care Teams Home Health Cna Relationship Specialty Start Date End Date Russell Oneil MD PCP - General 03/29/14 02/22/22 [address] [place] [address] documented as of this encounter
--- OUTSIDE RECORDS SUMMARY | 2022-07-27 10:49 | XMS_ITS | Encounter Summary ---
:2000 Author Organization [facility] [place] [address] Care Team Providers Name Role Phone Russell Oneil MD Primary Care Provider Reason for Visit Reason Comments Acne Encounter Details Date Type Department Care Team Description 11/04/2020 Office Visit Dermatology at [facility] Geovani Doyle MD Acne vulgaris [address] [facility] [address] [place] [address] DERMATOLOGY [phone] [place], [place] [address] (Wo rk) Social History Tobacco Use Types Packs/Day Years Used Date Smoking Tobacco: Never Smokeless Tobacco: Former Comments: no smoke exposure Alcohol Use Standard Drinks/Week Comments No 0 (1 standard drink = 0.6 oz pure alcoho l) Sex Assigned at Date Recorded Not on file documented as of this encounter Progress Notes Geovani Doyle MD - 11/04/2020 9:15 AM EST Problem: 1. ??Acne vulgaris, status post 2 months of second course of isotretinoin. 2. ??Follow-up??probable hidradenitis suppurativa, axillary vaults 3. 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 ??Status post 5-month course of isotretinoin completed September 2015 5. ??Being [place] [facility] [place] for pre-PCOS, treated??with Spironolactone 100 mg??twice daily 6. ??History of Matthew Danlos syndrome Ivon follows up and has been doing well. Acne on the face is just about quiesced sent and it is improving significantly on the upper chest. She has had no active heat and rhinitis. She is able to control the xerosis well with Cetaphil facial moisturizing lotion for her face, bag balm for her lips, hasbeen using a [employer] product for her hands. I suggested actually trying bag balm for her hands as well for the dryness there. Physical examination confirms clearance of the acne vulgaris on the lateral neck lateral cheeks and significant provement on the upper presternal chest. Assessment plan: Acne vulgaris borderline scarring status post 2 months of isotretinoin 1. Continue isotretinoin 40 mg 1 p.o. twice daily dispense #60 with 0 refills. 2. We will call prescription into [facility] in [place] 3. control remains hormonal patch and male latex condom 4. Urinary test today was negative I [employer] website was accessed counseling confirmed and negative test entered 5. Return to clinic in 1 month for repeat check Cc: Russell Oneil MD?? documented in this encounter Plan of Treatment Not on filedocumented as of this encounter Visit Diagnoses Diagnosis Acne vulgaris Other acne documented in this encounter Care Teams Bobbin Dumper Relationship Specialty Start Date End Date Russell Oneil MD PCP - General 03/29/14 02/22/[address] [place] [id number] documented as of this encounter
--- OUTSIDE RECORDS SUMMARY | 2022-07-27 10:49 | XMS_ITS | Encounter Summary ---
:2000 Author Organization [facility] [place] [address] Care Team Providers Name Role Phone Russell Oneil MD Primary Care Provider Reason for Visit Reason Onset Date Comments Triage 02/05/2018 Encounter Details Date Type Department Care Team Description 02/05/2018 Telephone [place] [facility] Farrah Betts [employer] [place] [address] Social History Tobacco Use Types Packs/Day Years Used Date Smoking Tobacco: Never Smokeless Tobacco: Former Alcohol Use Standard Drinks/Week Comments No 0 (1 standard drink = 0.6 oz pure alcoho l) Sex Assigned at Date Recorded Not on file documented as of this encounter Miscellaneous Notes Telephone Encounter - Farrah Betts RN - 02/05/2018 11:16 AM EDT Mom Caitlyn calls to ask if Dr. Navarro received Xray report from [facility] yet. Reports are in the system and are negative. I have notified Mom and she would like to know when Dr. Navarro could see her again. documented in this encounter Plan of Treatment Not on filedocumented as of this encounter Visit Diagnoses Not on filedocumented in this encounter Care Teams Spinner Fixer Relationship Specialty Start Date End Date Russell Oneil MD PCP - General 03/29/14 02/22/[address] [place] [id number] documented as of this encounter
--- OUTSIDE RECORDS SUMMARY | 2022-07-27 10:49 | XMS_ITS | Encounter Summary ---
:2000 Author Organization [facility] [place] [address] Care Team Providers Name Role Phone Russell Oneil MD Primary Care Provider Reason for Visit Reason Onset Date Comments Medication Refill 10/07/2017 Encounter Details Date Type Department Care Team Description 10/07/2017 Refill Pediatric Endocrinology at [facility], Polycystic ovary [facility] [place] [address] Social History Tobacco Use Types Packs/Day Years Used Date Smoking Tobacco: Never Smokeless Tobacco: Former Alcohol Use Standard Drinks/Week Comments No 0 (1 standard drink = 0.6 oz pure alcoho l) Sex Assigned at Date Recorded Not on file documented as of this encounter Miscellaneous Notes Telephone Encounter - Bailee Azevedo MD - 10/07/2017 3:32 PM EST Can you call family for pharmacy to send refils to? documented in this encounter Plan of Treatment Not on filedocumented as of this encounter Visit Diagnoses Diagnosis Polycystic ovary syndrome Polycystic ovaries documented in this encounter Care Teams Services Account Manager Relationship Specialty Start Date End Date Russell Oneil MD PCP - General 03/29/14 02/22/22 [address] [place] [address] documented as of this encounter
--- OUTSIDE RECORDS SUMMARY | 2022-07-27 10:49 | XMS_ITS | Encounter Summary ---
:2000 Author Organization [facility] [place] [address] Care Team Providers Name Role Phone Russell Oneil MD Primary Care Provider Reason for Visit Consultation (Routine) - Closed Specialty Diagnoses / Procedures Referred By Contact Refer red To Contact Neurology Diagnoses Right foot pain EDS (Matthew-Danlos syndrome) Pardeep Jacobo MD [facility] Neurology 3c [facility] [place] [address] [place] [address] Referral ID Status Reason Start Date Expiration Date Visits V isits Requested Authorized [id number] Closed Consult, 09/27/2020 09/27/2021 1 1 Test & Treat Encounter Details Date Type Department Care Team Description 12/05/2020 [place] [facility] [place] Garcia MD Right foot pain; [facility] EDS (Ehle rs-Danlos syndrome) [facility] [address], [place], [place] [phone] Social History Tobacco Use Types Packs/Day Years Used Date Smoking Tobacco: Never Smokeless Tobacco: Former Comments: no smoke exposure Alcohol Use Standard Drinks/Week Comments No 0 (1 standard drink = 0.6 oz pure alcoho l) Sex Assigned at Date Recorded Not on file documented as of this encounter Progress Notes Timothy Garcia MD - 12/05/2020 10:00 AM EDT Images from the original note were not included. NEUROLOGY CLINIC [facility] [place] [id number] EMG/NCS REPORT 12/05/2020 Patient name: Ivon Mcqueen Date of : 2000 Referring provider: Pardeep Jacobo MD [facility] [place] [address] History and Examination: See clinic notes There were no vitals taken for this visit. Nerve Conduction Studies For sensory nerve conduction studies, the amplitude is measured [id number], the latency reported is the distal peak latency, and the conduction velocity, if measured, is determined from onset latencies and is over the extremity. For motor nerve conduction studies, the amplitude is measured [id number], the latency reportedis the distal onset latency,the conduction velocity is calculated over the extremity, and the F wavelatency is the minimum latency. Unless otherwise noted, the upper limb temperature was maintained above 31 degrees Celsius and lowerlimb above 30 degrees. Technologist: [facility] Nerve / Sites Rec. Site Peak Lat Ref. OIL PAINTER Amp Ref. Distance Onset Tani Ref. ms ms ??V ??V mm m/s m/s R Sural - Ankle (Calf) (Anti-Ortho) Calf Ankle 3.3 38.7 ?10.0 110 48.0 ?40.0 R Medial plantar, Lateral plantar - Ankle (Medial, lateral sole) Medial plantar Sole Ankle 2.8 ?3.7 24.4 ?3.0 120 60.0 R Superficial peroneal - Ankle Lat leg Ankle 3.4 ?4.2 10.0 ?5.0 100 42.5 MNC Nerve / Sites Muscle Latency Ref. Amplitude Ref. Distance Velocity Ref. ms ms mV mV mm m/s m/s R Peroneal - EDB Ankle EDB 4.7 ?6.0 5.4 ?2.5 90 Fib head EDB 11.4 5.5 ?2.5 330 48.9 ?40.0 R Tibial - AH Ankle AH 3.9 ?6.0 13.3 ?2.5 90 F Wave Nerve F Lat Ref. M Lat Min M Lat ms ms ms ms R Peroneal - EDB 48.9 ?52.0 5.0 5.0 R Tibial - AH 47.1 ?56.0 3.9 3.9 Findings ??? Normal nerve conduction studies. Diagnostic Interpretation The study was NORMAL. Notes No evidence of R LE neuropathy. Timothy Garcia MD Department of Neurology [facility] Timothy Garcia MD - 12/05/2020 10:00 AM EDT NEUROLOGY CLINIC [facility] [place] [address] 12/05/2020 Patient name: Ivon Mcqueen Date of : 2000 Referring provider: Pardeep Jacobo MD [facility] [place] [address] HISTORY REASON FOR REFERRAL/CHIEF COMPLAINT: ? CRPS HISTORY OF PRESENTING COMPLAINTS: Referred for ? CRPS. She says that last December she was attacked by a cow while working and her foot was pinned. She pushed the cow away. At that time she didn't think anything was wrong. Later she developed pain and tingling sensation in R foot. She saw a physician at [place] who advised her to undergo a surgery. She wanted a second opinion and was seen here in orthopedics. She was noted to have a sesamoid fracture in her right foot. There was concern for a component of her having CRPS given her description of discoloration of feet. She says she also has tingling in left side of her body. Tingling sensation also occurs in both hands and fingers. It comes and goes. Sometimes her toes and both feet would become tingly. She is having More symptoms in her R foot. Sometimes it can go purplish grimes which her parents haven't noticed but she thinks there was change in color. Pain is mostly in the medial aspect of R foot but tingling isthere everywhere in the right foot . She says she had a TIA in 2017 or 18 where she had numbness of her face. She had weakness in her left hand with tingling at that time. She couldn't hold onto her phone. She doesn't remember having anyheadache but says she was having memory problems at that time. She went to [facility] where she had CT scan head which was negative. After few hours she felt better and was discharged home with advice to follow up with PCP. She was not started on any medications and no MRI was done at that time. She has chronic neck / back issues and sees a chiropractor for neck and back issues. She is also though to have EDS and PCOS and is on spironolactone. Being followed here in Endocrinology. PMHx: Past Medical History: Diagnosis Date ??? Allergic state ketamine ??? Chronic pelvic pain in female 10/14/2016 ??? Headache ??? Hirsutism 10/14/2016 Excess hair on chest and linea alba, but face is spared. ??? Pneumonia ??? Vision abnormalities Migraine ? EDS. Past Surgical History: Procedure Laterality Date ??? KNEE CARTILAGE SURGERY Left ??? PRO COLONOSCOPY, BIOPSY N/A 12/31/2016 COLONOSCOPY FLEXIBLE, WITH BX (WRVU 3.66) performed by Jennifer Lion MD at [facility] ENDOSCOPY ??? PRO COLONOSCOPY, DIAGNOSTIC N/A 12/31/2016 PEDIATRIC COLONOSCOPY performed by Jennifer Lion MD at [facility] ENDOSCOPY ??? PRO UPPER GI ENDOSCOPY, DIAGNOSTIC N/A 12/31/2016 EGD, UPPER GI ENDOSCOPY performed by Jennifer Lion MD at [facility] ENDOSCOPY ??? WRIST SURGERY Family History: Family History Problem Relation Age of Onset [...] Hx ??? Thyroid Disease Neg Hx Social History: reports that she has never smoked. She has quit using smokeless tobacco. She reports that she does not drink alcohol and does not use drugs. No flowsheet data found. 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 Lives in [place] with parents. Review of systems: Constitutional: No fever/chills Eyes: No vision problems ENT: No nasal symptoms. Cardiovascular: No chest pain or palpitations Respiratory: No cough or shortness of breath Gastrointestinal: No nausea, vomiting, diarrhea or constipation Genitourinary: No dysuria, no incontinence Hematologic: No bleeding or bruising Endocrine: No heat or cold intolerance Musculoskeletal: + Joint pains Integumentary: No skin rashes. Neurologic: See HPI Psychiatric: No depression, normal sleep Allergy/ Immunology: Allergy as documented. [x] Review of systems otherwise negative Medications: Current Outpatient Medications on File Prior to Visit Medication Sig Dispense Refill ??? ISOtretinoin (ACCUTANE) 40 mg Capsule Take one tablet by mouth twice daily 60 capsule 0 ??? norelgestrom-ethinyl estradiol (ORTHO EVRA) 150-35 mcg/24 hr Patch Weekly Use as directed 3 patch 3 ??? triamcinolone (KENALOG) 0.1 % Cream Apply to eczema rash twice daily as needed until clear 15 g 1 ??? polyethylene glycol (MIRALAX) 17 gram/dose Powder 0 No current facility-administered medications on file prior to visit. Spirinolactone. Allergies: Allergies Allergen Reactions ??? Ketamine ??? Pollen Extracts Other (See Comments) EXAMINATION Vitals: There were no vitals taken for this visit. General Examination: Appearance: alert, no distress Cardiovascular: Rate regular, S1S2 normal, no murmur Respiratory: Symmetric expansion, lungs clear to auscultation Gastrointestinal: Abdomen soft, nondistended Extremity: High arches, R foot has tenderness in medial aspect. Skin: No rashes noted Neurological Examination o Higher functions: - Speech: fluent, no aphasia/dysarthria or dysphonia - Alert and oriented. o Cranial Nerves - II-XII: Pupils bilaterally equal and symmetric conjugate gaze, reacting to light. No ptosis/nystagmus. Vision normal. No field deficits. EOMI. No facial droop. No weakness of jaw/uvula/ palate o Reflexes - Diminished bilaterally biceps, BR and knee o Motor and Coordination - Normal tone, bulk strength and coordination of right and left sided muscles o Sensory - Sensory asymmetry in dorsum of R foot compared to left. o Skull and Spine/ Gait - Neck paraspinal tenderness,worse on the left side. - Normal gait - Tandem: No imbalance. LABS AND IMAGING Labs GENERAL THYROID: Lab Results Component Value Date TSH 1.60 09/20/2017 FREET4 1.05 02/28/2017 FolateNo results found for: SFOLATE ESR Lab Results Component Value Date SEDRATE 9 09/20/2017 CRP Lab Results Component Value Date CRP 1.2 09/20/2017 B12No results found for: OWQINGPC72 CKNo results found for: CK Angiotensin ConvertaseNo results found for: CECI INFECTIONS HIVNo results found for: HIV12 HEPATITIS PANELNo results found for: HAV, HEPBSAB, HBEAG, HEPBSAG, HEPCAB AUTOIMMUNE PANEL ANANo results found for: ELIZA DSDNANo results found for: DNAABDS [place] results found for: ELBERT C3,C4, COMPLEMENTSNo results found for: C3, C4 CARDIOLIPIN, LUPUSNo components found for: CARDIOLIPINANTIBODY, LUPUS, ANTICOAGULANT CELIAC: TTG, GLIADIN, ENDOMYSIALNo components found for: TTRANSGLUTAMINASEANTIBODY ANTIGLIADINANTIBODY VASCULITIS: C,P,ANCA, MPONo results found for: PANCA, CANCA, MYELOP, PR3AB NMONo components found for: NEUROMYELITISOPTICAANTIBODY MG: ACHRAB, Anit MuSK, LEMSNo components found for: ACETYLCHOLINERECEPTORABBINDING, LEMSANTIBODY, ANTISKELETALMUSCLEANTIBODY CRYOGLOBULINSNo components found for: CRYOGLOBULINS METABOLIC CERULOPLASMINNo components found for: CERULOPLASMIN BETA 2 MICROGLOBULINNo results found for: B2MG No results found for: TPROTEINPEP, ALBELECT, ALPHA1, ALPHA2, GAMMAGLOB, APB1 CORTISOLNo results found for: CORTISOL LDH No results found for: LDH NUTRITIONAL VITAMIN D Lab Results Component Value Date 25OHVITD 37 09/20/2017 PRE ALBUMINNo results found for: PREALBUMIN FERRITINNo results found for: IRON COPPERNo results found for: COPPER PERIPHERAL NEUROPATHY HEMOGLOBIN A1CNo results found for: HA1C LIPID PROFILE Lab Results Component Value Date CHLPL 189 02/28/2017 HDL 48 02/28/2017 CHOLHDL 3.9 02/28/2017 TRIG 99 02/28/2017 LDLCHOL 121 02/28/2017 KAREN 65No results found for: [id number] ANTI GM1,ANTI SGPG, MAG@RESUFAST (MAGAUTOAB,SGPG,MAGWB,GM1AB)@ HEAVY METAL SCREENNo results found for: LEAD, ARSENIC METHYLMLONIC ACIDNo results found for: METHYLMAL IgA, IGG Lab Results Component Value Date IGA 213 12/14/2016 CSF PANEL No results found for: NUCCELMANCSF, RBCCSFCT, SEGSCSF, LYMPHSCSF, NUMCELLCTCSF, CSFGLUC, CSFPROTEIN,XANTHOCHROM, MCSBFTYPE, MCS, CSFIGGINDEX, LYMEAB, VDRLSCRNCSF, OLIGOCSF, HSVDNA, ARBOWNILECSF, ENTVPCR, VZVPCR PARANEOPLASTIC PANEL No results found for: PARANEOINTRP, ANNA1, ANNA2, ANNA3, AGNA1, PCA1, PCA2, PCATYPETR, AMPHIPHYSIN, [id number], STRIATMSCLAB, CACHABPQTYPE, CACHABNTYPE, ACHRBINDAB, NEUROKCHAB, NMDARECEPTOR, SKQ65LB THROMBOSIS HOMEOCYSTEINENo results found for: HOMOCYSTEINE THROMBOSIS PANELNo results found for: ACAIGM, [id number] FACTOR V LEIDEN No components found for: FACTORVLEIDEN PROTEIN C,SNo components found for: PROTEINC, PROTEINS ANTITHROMBIN IIINo components found for: ANTITHROMBINIII Miscellaneous Send outsNo results found for: MISCSENDOUT, MISCMAYO MRI R foot: sesamoid fracture per report. ASSESSMENT, PLAN & RECOMMENDATIONS ASSESSMENT: 20 Y F with history of migraines, ? EDS,PCOS, R foot injury referred for evaluation of ?CRPS. Incidentally she also has paresthesiae in hands and episode of left facial numbness in the past which was diagnosed as TIA. On evaluation today she has high arches, reduced DTRs, some sensory asymmetry in superficial peroneal distribution on the right side with tenderness in the medial aspect ofR foot. She has neck paraspinal tenderness on R side. Nerve conduction studies normal. IMPRESSION: R foot pain. PLAN/RECOMMENDATIONS: ??? Her symptoms seems related to local foot pathology. ??? No significant findings to suggest CRPS. ??? Facial paresthesiae and hand symptoms are likely cervicogenic/ migraine related and not due to TIA. Continue neck and back therapy through chiropractor. ??? Further management of foot symptoms through Orthopedics. ??? Follow up as needed Timothy Garcia MD Department of Neurology [facility] documented in this encounter Plan of Treatment Scheduled Referrals Name Type Priority Associated Diagnoses Order S chedule Referral to Outpatient Referral Routine Right foot p ain Ordered: Neurology EDS (Matthew-Danlos 1 syndrome) documented as of this encounter Visit Diagnoses Diagnosis Right foot pain Pain in limb EDS (Matthew-Danlos syndrome) Matthew-Danlos syndrome documented in this encounter Care Teams Director Audience Marketing Relationship Specialty Start Date End Date Russell Oneil MD PCP - General 03/29/14 02/22/[address] [place] [address] documented as of this encounter
--- OUTSIDE RECORDS SUMMARY | 2022-07-27 10:49 | XMS_ITS | Encounter Summary ---
:2000 [place] [address] Care Team Providers Name Role Phone Russell Oneil MD Primary Care Provider Encounter Details Date Type Department Care Team Description 08/01/2020 Ancillary Procedure Radiology Library at Henny Jacobo MD [facility] [place] [address] [place] [address] [phone] (Wo rk) Social History Tobacco Use Types [...] Name Priority Date/Time Associated Diagnosis Comme nts FILM LIBRARY Routine 08/01/2020 12:00 AM Results for this STORAGE ONLY MR EST procedure ar e in ANKLE the results section. documented in this encounter Results Film Library- Storage Only MR Ankle (08/01/2020 12:00 AM EST) Specimen (Source) Anatomical Location Collection Method / Collectio n Time Received Time / Laterality Volume Narrative [facility] - 08/30/2020 12:42 PM EST This exam is auto-finalizing. It's purpo se is for storage only. Pardeep Jacobo MD IMG FILM LIBRARY ORDERABLES Performing Organization Address City/State/ZIP Code Phon e Number [facility] [place], [place] documented in this encounter Visit Diagnoses Not on filedocumented in this encounter Care Teams Game Room Attendant Relationship Specialty Start Date End Date Russell Oneil MD PCP - General 03/29/14 02/22/22 [address] [place] [address] documented as of this encounter
--- OUTSIDE RECORDS SUMMARY | 2022-07-27 10:49 | XMS_ITS | Encounter Summary ---
:2000 Author Organization [facility] [place] [address] Care Team Providers Name Role Phone Russell Oneil MD Primary Care Provider Encounter Details Date Type Department Care Team Description 06/03/2018 Telephone [place] [facility] [place] [address] Social History Tobacco Use Types Packs/Day Years Used Date Smoking Tobacco: Never Smokeless Tobacco: Former Alcohol Use Standard Drinks/Week Comments No 0 (1 standard drink = 0.6 oz pure alcoho l) Sex Assigned at Date Recorded Not on file documented as of this encounter Miscellaneous Notes Telephone Encounter - Grazyna Pantoja RN - 06/03/2018 8:53 AM EDT Spoke with mom, let her know the results came in late yesterday afternoon and that I left them for Dr. Azevedo, who isn't here today. I let mom know we'd call as soon as they were reviewed. Mom verbalized understanding. Telephone Encounter - Grazyna Pantoja RN - 06/03/2018 8:53 AM EDT ----- Message from Barbi Brennan sent at 06/02/2018 2:42 PM EDT ----- Contact: Mom Mom was calling to see if we received the results of her ultrasound that was done in [place]. She can be reached after 3:30pm at [phone]. documented in this encounter Plan of Treatment Not on filedocumented as of this encounter Visit Diagnoses Not on filedocumented in this encounter Care Teams Landman Relationship Specialty Start Date End Date Russell Oneil MD PCP - General 03/29/14 02/22/[address] [place] [address] documented as of this encounter
--- OUTSIDE RECORDS SUMMARY | 2022-07-27 10:49 | XMS_ITS | Encounter Summary ---
:2000 Author Organization [facility] [place] [address] Care Team Providers Name Role Phone Russell Oneil MD Primary Care Provider Encounter Details Date Type Department Care Team Description 12/06/2020 Refill Dermatology at [facility] Charo Ramirez, PUBLIC HE[employer] REGISTRAR [address] [place] [address] Social History Tobacco Use [...] on filedocumented in this encounter Care Teams Head Machinist Relationship Specialty Start Date End Date Russell Oneil MD PCP - General 03/29/14 02/22/[address] [place] [address] documented as of this encounter
--- OUTSIDE RECORDS SUMMARY | 2022-07-27 10:49 | XMS_ITS | Encounter Summary ---
:2000 Author Organization [facility] [place] [address] Care Team Providers Name Role Phone Russell Oneil MD Primary Care Provider Reason for Visit Reason Comments Follow-up Here with momCaitlyn Encounter Details Date Type Department Care Team Description 07/04/2018 Office Visit Pediatric Rheumatology Gray Navarro, EDS ([facility] [facility] [place] [facility] [place] [address] RHEUMATOLOGY [phone] [address] [place] [address] Social History Tobacco Use Types Packs/Day Years Used Date Smoking Tobacco: Never Smokeless Tobacco: Former Comments: no smoke exposure Alcohol Use Standard Drinks/Week Comments No 0 (1 standard drink = 0.6 oz pure alcoho l) Sex Assigned at Date Recorded Not on file documented as of this encounter Last Filed Vital Signs Vital Sign Reading Time Taken Comments Blood Pressure 109/60 07/04/2018 2:22 PM EDT Pulse 94 07/04/2018 2:22 PM EDT Temperature 36.7 ??C (98 ??F) 07/04/2018 2:22 PM EDT Respiratory Rate - - Oxygen Saturation 100% 07/04/2018 2:22 PM EDT Inhaled Oxygen Concentration - - Weight 75.2 kg (165 lb 12.8 oz) 07/04/2018 2:22 PM EDT Height - - Body Mass Index 28.52 07/04/2018 10:19 AM EDT Body Mass Index Percentile 92.61 % 07/04/2018 2:22 PM ED T Growth Chart: [facility] (Girls, 2-20 Years) documented in this encounter Progress Notes Gray Navarro MD - 07/04/2018 2:00 PM EDT Is a follow-up appointment on Ivonopal Mcqueen birthdate 2000 The patient is a 18-year-old female with Matthew-Danlos characterized by hypermobility although her Beighton score is low target joints that are particularly affected include the ankles, kneesand wrists she also is easily bruised able Since her last visit she sustained 2 additional injuries one in her left ankle from rolling it the other in her right wrist On exam she is healthy-appearing blood pressure is 109/60 pulse of 94 pulse ox of 100 temp of 98 herweight is stable at 165 her BMI is 29 her joint exam is notable for the absence of synovitis but quite mobile in target joints Laboratory data including CBC chemistries and inflammatory markers was all within normal limits Today I have provided her physical therapy form to do locally and a school excuse for gym I also think she could use an IEP and a 504 plan she will call for those Over half of the 25-minute visit was spent on counseling documented in this encounter Plan of Treatment Not on filedocumented as of this encounter Visit Diagnoses Diagnosis EDS (Matthew-Danlos syndrome) Matthew-Danlos syndrome documented in this encounter Care Teams Blueprint Machine Operator Relationship Specialty Start Date End Date Russell Oneil MD PCP - General 03/29/14 02/22/[address] [place] [address] documented as of this encounter
--- OUTSIDE RECORDS SUMMARY | 2022-07-27 10:49 | XMS_ITS | Encounter Summary ---
:2000 Author Organization [facility] [place] [address] Care Team Providers Name Role Phone Russell Oneil MD Primary Care Provider Reason for Visit Reason Comments Establish Care Consultation (Routine) - Closed Specialty Diagnoses / Procedures Referred By Contact Refer red To Contact Pediatric Rheumatology Diagnoses r/o connective tisue disease lie EDS given frequent ligament injuries Russell Oneil MD [facility] [address] [place] [address] [place] [address] Phone: Referral ID Status Reason Start Date Expiration Date Visits V isits Requested Authorized [id number] Closed Consult, 08/14/2017 08/14/2018 1 [facility] Encounter Details Date Type Department Care Team Description 09/20/2017 Office Visit Pediatric Rheumatology Gray Navarro, Sprain of left ankle, at [facility] unspecified ligament, [facility] [place] [address] RHEUMATOLOGY [phone] [address]PT[address] [place], [place] [address] Social History Tobacco Use Types Packs/Day Years Used Date Smoking Tobacco: Never Smokeless Tobacco: Former Alcohol Use Standard Drinks/Week Comments No 0 (1 standard drink = 0.6 oz pure alcoho l) Sex Assigned at Date Recorded Not on file documented as of this encounter Last Filed Vital Signs Vital Sign Reading Time Taken Comments Blood Pressure 133/75 09/20/2017 11:22 AM EST Pulse 97 09/20/2017 11:22 AM EST Temperature 36.3 ??C (97.3 ??F) 09/20/2017 11:22 AM EST Respiratory Rate - - Oxygen Saturation - - Inhaled Oxygen Concentration - - Weight 74.6 kg (164 lb 6.4 oz) 09/20/2017 11:22 AM EST Height 161.9 cm (5' 3.75) 09/20/2017 11:22 AM EST Body Mass Index 28.44 09/20/2017 11:22 AM EST Body Mass Index Percentile 93.25 % 09/20/2017 11:[address] Growth Chart: CDC (Girls, 2-20 Years) documented in this encounter Progress Notes Gray Navarro MD - 09/20/2017 11:00 AM EST This is a new patient consultation seen at the request of Russell Oneil on Ivon Mcqueen birthdate 2000 The patient is a 17-year-old female with known PCO S acne migraines who is allergic to ketamine and has probable IBS She is here for multiple soft tissue injuries secondary to inapparent trauma her left ankle was injured with a probable ligament and/or tendon injury while walking on flat ground with extensive swelling negative x-ray but no MRI She has had 2 meniscal tears both with inapparent trauma requiring arthroscopic repair Her right wrist required TS SCDs surgery for relatively minor incident involving haying. Family history is notable for brothers who is hypermobile On exam she is healthy-appearing overweight her blood pressure is 133/75 pulse of 97 temp of 97 3 height of 64 inches which is in the 44th percentile weight of 164 which is in the 92nd percentile her BMI is 28 her HEENT exam she has acne which appears to be better controlled on minocycline her pharynxis benign her mucous membranes are moist her neck she has some thyromegaly but it is not nodular herchest is clear heart exam unremarkable her abdomen is benign with no distention or tenderness her extremities are interesting she is not hypermobile by patent score her Beighton score is only 2 howevershe does have hypermobility in both knees and both feet she has pes planus and her toes are hypermobile but they are not captured on Beighton score I ordered laboratory studies that are pending at the time of this dictation to make sure she did nothave a metabolic problem in bone or ligament I handed them a information packet on Matthew-Danlos although she does not fulfill criteria I do think that she is hypermobile and that is part of the reasonshe has had some any injuries I asked her to follow-up on a as needed basis unless the labs are abnormal documented in this encounter Miscellaneous Notes Addendum Note - Miriam Leo - 09/20/2017 12:14 PM EST Addended by: MIRIAM LEO on: 09/20/2017 12:14 PM Modules accepted: Orders documented in this encounter Plan of Treatment Not on filedocumented as of this encounter Procedures Procedure Name Priority Date/Time Associated Comments Diagnosis CRP, ACUTE Routine 09/20/2017 12:23 Sprain of left Results f or this INFLAMMATION PM EST ankle, unspecified procedure are in ligament, initial the result s encounter section. HEMOGRAM Routine 09/20/2017 12:23 Sprain of left Results f or this PM EST ankle, unspecified procedure are in ligament, initial the result s encounter section. DIFFERENTIAL, Routine 09/20/2017 12:23 Sprain of left Results for this AUTOMATED PM EST ankle, unspecified procedure are in ligament, initial the result s encounter section. VITAMIN D, 25-HYDROXY Routine 09/20/2017 12:23 Sprain of left Results for this PM EST ankle, unspecified procedure are in ligament, initial the result s encounter section. SEDIMENTATION RATE Routine 09/20/2017 12:23 Sprain of left Res ults for this PM EST ankle, unspecified procedure are in ligament, initial the result s encounter section. CBC (WITH DIFF) Routine 09/20/2017 12:23 Sprain of left PM EST ankle, unspecified ligament, initial encounter TSH Routine 09/20/2017 12:23 Sprain of left Results f or this PM EST ankle, unspecified procedure are in ligament, initial the result s encounter section. TESTOSTERONE, TOTAL Routine 09/20/2017 12:23 Sprain of left Re sults for this PM EST ankle, unspecified procedure are in ligament, initial the result s encounter section. MAGNESIUM Routine 09/20/2017 12:23 Sprain of left Results f or this PM EST ankle, unspecified procedure are in ligament, initial the result s encounter section. COMPREHENSIVE Routine 09/20/2017 12:23 Sprain of left Results for this METABOLIC PANEL PM EST ankle, unspecified proced ure are in (NON-FASTING) ligament, initial the resul ts encounter section. documented in this encounter Results Differential, Automated (09/20/2017 12:23 PM EST) athologist Signature Neutrophils % 62.2 % [facility] Neutr Abs (ANC) 3.84 1.50 - [facility] 8.00 [facility] x10(3)/[facility] LABORATORY Lymphocytes % 29.1 % [facility] Lymphocytes Abs 1.8 1.2 - 5.2 [facility] x10(3)/[facility] LABORATORY Monocytes % 8.0 % [facility] Monocyte Abs 0.5 0.2 - 1.0 [facility] x10(3)/[facility] LABORATORY Eosinophils % 0.2 % [facility] Eosinophils Abs 0.0 0.0 - 0.4 [facility] x10(3)/[facility] LABORATORY Basophils % 0.2 % [facility] Basophils Abs 0.0 0.0 - 0.1 [facility] x10(3)/[facility] LABORATORY Immature Gran % 0.30 % [facility] Comment: Immature granulocytes(IG's)percentage an d absolute count will include metamyelocytes, myelocytes, and promyelo cytes. Blood smears from CBCs yielding IG's will be scanned manually for concor dance. If this scan disagrees with the automated IG or if promyelocytes are not ed, a manual differential will be performed. Katty Gran Abs 0.02 0.00 - 0.04 x10(3)/[facility] Specimen Anatomical Collection Method Collection Time Receive d Time (Source) Location / / Volume Laterality Blood specimen 09/20/2017 12:23 8 (specimen) PM EST 12:29 PM EST Resulting Agency Comment Spec In Lab Gray Navarro MD HEMATOLOGY ORDERABLES Performing Organization Address City/State/ZIP Code Phon e Number [address] Hemogram (09/20/2017 12:23 PM EST) P athologist Signature WBC 6.2 4.5 - 13.0 [facility] x[facility](3[facility] LABORATORY RBC 5.07 4.10 - [facility] 5.10 [facility] x10(6)/[facility] LABORATORY Hemoglobin 13.9 12.0 - [facility] 16.0 gm/dL [facility] Hematocrit 42.3 36.0 - [facility] 46.0 % [facility] MCV 83.4 76.0 - [facility] 98.0 [facility] LABORATORY MCH 27.4 25.0 - [facility] 35.[address] [facility] MCHC 32.9 32.0 - [facility] 36.5 gm/dL [facility] Platelets 310 145 - 370 [facility] x10(3)/[facility] LABORATORY RDWSD 38.5 37.0 - [facility] 46.0 [facility] LABORATORY RDWCV 12.7 0.0 - 14.5 [facility] % [facility] MPV 9.0 7.6 - 12.9 [facility] LABORATORY nRBC % Auto 0.0 % [facility] nRBC Abs Auto 0.000 0.000 - [facility] 0.000 [facility] x10(3)/[facility] LABORATORY Specimen Anatomical Collection Method Collection Time Receive d Time (Source) Location / / Volume Laterality Blood specimen 09/20/2017 12:23 8 (specimen) PM EST 12:29 PM EST Resulting Agency Comment Spec In Lab Gray Navarro MD HEMATOLOGY ORDERABLES Performing Organization Address City/State/[place] [address] TSH (09/20/2017 12:23 PM EST) P athologist Signature TSH 1.60 0.27 - 4.20 [facility] mlU/ML [facility] Specimen Anatomical Collection Method Collection Time Receive d Time (Source) Location / / Volume Laterality Blood specimen 09/20/2017 12:23 8 (specimen) PM EST 12:29 PM EST Resulting Agency Comment Spec In Lab Gray Navarro MD CHEMISTRY ORDERABLES Performing Organization Address City/State/[place] [address] Testosterone, total (09/20/2017 12:23 PM EST) athologist Signature Testo Total 0.39 ng/mL [facility] Comment: Reference Ranges: ? Males (7t o18 years) ?Females (8-18 years) Reilly Stage ?ng/m l ? ng/ml ? 1 ? <0.0 3 ? <0.03 to 0.06 ? 2 ? <0.0 3 to 4.32 ? <0.03 to 0.10 ? 3 ? 0.65 to 7.78 ?<0.03 to 0.24 ? 4 ? 1.80 to 7.63 ?<0.03 to 0.27 ? 5 ? 1.88 to 8.82 ?<0.05 to 0.38 ?Males 1 8 years to adult ? Females 18 years to adult ? 2.80 t o 8.00 ng/ml ?0.06 to 0.82 ng/ml Stated adult reference ranges derived fr om review of [employer] E170 Testosterone reagent package insert 07/07, V8 Stated pediatric reference ranges derive d from review of [employer] E170 Testosterone II reagent package insert 0 03/11, V2. Specimen Anatomical Collection Method Collection Time Receive d Time (Source) Location / / Volume Laterality Blood specimen 09/20/2017 12:23 8 (specimen) PM EST 12:29 PM EST Resulting Agency Comment Spec In Lab Gray Navarro MD CHEMISTRY ORDERABLES Performing Organization Address City/[facility]/ZIP [place] [address] Sedimentation rate (09/20/2017 12:23 PM EST) P athologist Signature Sed Rate 9 0 - 20 [facility] mm/hr [facility] Specimen Anatomical Collection Method Collection Time Receive d Time (Source) Location / / Volume Laterality Blood specimen 09/20/2017 12:23 8 (specimen) PM EST 12:29 PM EST Resulting Agency Comment Spec In Lab Gray Navarro MD HEMATOLOGY ORDERABLES Performing Organization Address City/[facility]/ZIP [facility] [place] [address] CRP, acute inflammation (09/20/2017 12:23 PM EST) P athologist Signature CRP 1.2 <=4.9 mg/L [facility] Specimen Anatomical Collection Method Collection Time Receive d Time (Source) Location / / Volume Laterality Blood specimen 09/20/2017 12:23 8 (specimen) PM EST 12:29 PM EST Resulting Agency Comment Spec In Lab Gray Navarro MD CHEMISTRY ORDERABLES Performing Organization Address City/State/ZIP Code Phon e Number [address] Magnesium (09/20/2017 12:23 PM EST) athologist Signature Magnesium 0.82 0.69 - 1.07 [facility] mmol/L [facility] Specimen Anatomical Collection Method Collection Time Receive d Time (Source) Location / / Volume Laterality Blood specimen 09/20/2017 12:23 8 (specimen) PM EST 12:29 PM EST Resulting Agency Comment Spec In Lab Gray Navarro MD CHEMISTRY ORDERABLES Performing Organization Address City/[facility]/ZIP Code Phon e Number [address] (ABNORMAL) Comprehensive metabolic panel (non-fasting) (09/20/2017 12:23 PM EST) athologist Signature Glucose Lvl 89 65 - 199 [facility] mg/dL [facility] Comment: Diabetes: >=200 mg/dL plus symp toms BUN 12 10 - 20 mg/dL [facility] Creatinine 0.71 (H) 0.20 - 0.70 mg/dL [facility] Sodium 139 135 - 145 mmol/L [facility] Potassium 3.9 3.5 - 5.0 mmol/L [facility] Comment: Please note: ??Patients with WBC >100,00 0 may have falsely elevated Potassium levels. ??For accurate Potassium quantif ication in these patients send serum separator tube (gold top) for subsequent determinations. ??Contact the Clinical Chemistry Laboratory if there are any qu estions. Chloride 100 98 - 107 mmol/L [facility] CO2 25 22 - 31 mmol/L [facility] Anion Gap 14 5 - 15 mmol/L [facility] Calcium 9.5 8.5 - 10.5 mg/dL [facility] Total Protein 7.9 6.4 - 8.3 gm/dL [facility] Albumin 4.2 3.2 - 5.2 gm/dL [facility] AST 15 5 - 30 unit/L [facility] ALT 10 0 - 25 unit/L [facility] Alk Phos 61 55 - 140 unit/L [facility] Total Bilirubin 0.8 <=1.0 mg/dL [facility] Estimated GFR See note >=60 [facility] Comment: The eGFR for patients less than 18 years of age should be calculated using the Carson formula. GFR = (0.413 x Height in cm)/serum creatinine. The reported eGFR should be multiplied b y 1.2 for patients. The MDRD is not an appropriate measure o f renal function for patients with body mass extremes or in patients with acute kidney failure. http://[employer]/DHnkdep http://[employer]/DHMCnkf Specimen Anatomical Collection Method Collection Time Receive d Time (Source) Location / / Volume Laterality Blood specimen 09/20/2017 12:23 8 (specimen) PM EST 12:29 PM EST Resulting Agency Comment Spec In Lab Gray Navarro MD CHEMISTRY ORDERABLES Performing Organization Address City/State/[place] [address] Vitamin D, 25-Hydroxy (09/20/2017 12:23 PM EST) P athologist Signature 25-OH Vit D 37 30 - 100 [facility] Total ng/mL [facility] Comment: Deficient <10 ng/mL Insufficient 10 to 29 ng/mL Sufficient 30 to 100 ng/mL Potential Intoxication >100 ng/mL According to the [place] National Osteoporosi s Foundation, Vitamin D concentrations >30 ng/mL are sufficient to protect bone health. ??The National Kidney Foundation has similarly stated that pat ients with Vitamin D concentrations <30ng/mL should be considered to be insu fficient or deficient. http://[employer]/nkf-guidelines http://[employer]/nejm-VitD The [employer] Vitamin D Immunoassay detec ts both 25-OH Vitamin D2 and 25-OH Vitamin D3, but only a total Vitamin D c oncentration is reported. Specimen Anatomical Collection Method Collection Time Receive d Time (Source) Location / / Volume Laterality Blood specimen 09/20/2017 12:23 8 (specimen) PM EST 10:08 AM EST Resulting Agency Comment Spec In Lab Gray Navarro MD CHEMISTRY ORDERABLES Performing Organization Address City/State/[place] [address] documented in this encounter Visit Diagnoses Diagnosis Sprain of left ankle, unspecified ligame nt, initial encounter documented in this encounter Care Teams Multimedia Project Manager Relationship Specialty Start Date End Date Russell Oneil MD PCP - General 03/29/14 02/22/22 [address] [place] [address] documented as of this encounter
--- OUTSIDE RECORDS SUMMARY | 2022-07-27 10:49 | XMS_ITS | Encounter Summary ---
:2000 Author Organization [facility] [place] [address] Care Team Providers Name Role Phone Russell Oneil MD Primary Care Provider Reason for Visit Reason Comments Acne Encounter Details Date Type Department Care Team Description 12/06/2020 Office Visit Dermatology at [facility] Geovani Doyle MD Acne vulgaris [address] [facility] [address] [place] [address] DERMATOLOGY [phone] [place], [place] [address] (Wo rk) Social History Tobacco Use Types Packs/Day Years Used Date Smoking Tobacco: Never Smokeless Tobacco: Former Comments: no smoke exposure Alcohol Use Standard Drinks/Week Comments No 0 (1 standard drink = 0.6 oz pure alcoho l) Sex Assigned at Date Recorded Not on file documented as of this encounter Progress Notes Geovani Doyle MD - 12/06/2020 4:15 PM EDT Problem: 1. ??Acne vulgaris, status post 3 months of second course of isotretinoin. 2. ??Follow-up??probable hidradenitis suppurativa, axillary vaults 3. 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 ??Status post 5-month course of isotretinoin completed September 2015 5. ??Being followed by [facility] endocrinology for pre-PCOS, treated??with Spironolactone 100 mg??twice daily 6. ??History of Matthew Danlos syndrome Ivon follows up and has been doing well. She feels however that she has gained weight and that her acne improvement seems to have plateaued. She wonders if she needs a higher dose. She been taking the isotretinoin on a 40 mg once p.o. twice daily basis. Her face, her chest, and underarms are quiescent. She denies significant xerosis headaches musculoskeletal symptoms. Assessment and plan: Acne vulgaris, borderline scarring status post 3 months of isotretinoin 1. Continue isotretinoin 40 mg 1 p.o. twice daily dispense #60 with 0 refills. [facility] [place] 2. control method remains hormonal patch and male latex condom 3. Urine test today was negative, and the [employer] website was accessed and counseling confirmed and negative press test entered. 4. Return to clinic in another month for repeat check. Counseled patience. I think she will see moreimprovement. Also discussed the possible need to go an additional month beyond the usual end of therapy. 5. Patient will check her weight at home and relay this to us but I do not think it will end up causing a change in her isotretinoin dosing CC: Russell Oneil MD documented in this encounter Plan of Treatment Not on filedocumented as of this encounter Visit Diagnoses Diagnosis Acne vulgaris Other acne documented in this encounter Care Teams Supervisor Drawing Relationship Specialty Start Date End Date Russell Oneil MD PCP - General 03/29/14 02/22/[address] [place] [address] documented as of this encounter
--- OUTSIDE RECORDS SUMMARY | 2022-07-27 10:50 | XMS_ITS | Encounter Summary ---
:2000 Author Organization [facility] [place] [address] Care Team Providers Name Role Phone Russell Oneil MD Primary Care Provider Reason for Visit Reason Comments Acne Encounter Details Date Type Department Care Team Description 01/14/2015 Office Visit Dermatology at [facility] Geovani Cortes MD Acne vulgaris [address] [facility] [address] [place] [address] DERMATOLOGY [phone] [place], [place] [address] (Wo rk) Social History Tobacco Use Types Packs/Day Years Used Date Smoking Tobacco: Never Sex Assigned at Date Recorded Not on file documented as of this encounter Patient Instructions Patient InstructionsCourt Arcos LPN - 01/14/2015 4:39 PM EDT Images from the original note were not included. [facility] Acne: After Your Visit Your Care Instructions Acne is a skin problem that shows up as blackheads, whiteheads, and pimples. It most often affects the face, neck, and upper body. Acne occurs when oil and skin cells clog the skin's pores. Acne usually starts during the teen years and often lasts into adulthood. Gentle cleansing every daycontrols most mild acne. If home treatment does not work, your doctor may prescribe creams, antibiotics, or a stronger medicine called isotretinoin. Sometimes control pills help women who have monthly acne flare-ups. Follow-up care is a sylvester part of your treatment and safety. Be sure to make and go to all appointments, and call your doctor if you are having problems. It???s also a good idea to know your test resultsand keep a list of the medicines you take. How can you care for yourself at home? ?? Gently wash your face 1 or 2 times a day with warm (not hot) water and a mild soap or cleanser. Always rinse well. ?? Use an tcyh-vje-nclkmjw lotion or gel that contains benzoyl peroxide. Start with a small amount of 2.5% benzoyl peroxide and increase the strength as needed. Benzoyl peroxide works well for acne, but you may need to use it for up to 2 months before your acne starts to improve. ?? Apply acne cream, lotion, or gel to all the places you get pimples, blackheads, or whiteheads, not just where you have them now. Follow the instructions carefully. If your skin gets too dry and scaly or red and sore, reduce the amount. For the best results, apply medicines as directed. Try not to miss doses. ?? Do not squeeze or pick pimples and blackheads. This can cause infection and scarring. ?? Use only oil-free makeup, sunscreen, and other skin care products that will not clog your pores. ?? Wash your hair every day, and try to keep it off your face and shoulders. Consider pinning it back or cutting it short. When should you call for help? Watch closely for changes in your health, and be sure to contact your doctor if: ?? You have tried home treatment for 6 to 8 weeks and your acne is not better or gets worse. Your doctor may need to add to or change your treatment. ?? Your pimples become large and hard or filled with fluid. ?? Scars form after pimples heal. ?? You feel sad or hopeless, lack energy, or have other signs of depression while you are taking theprescription medicine isotretinoin. ?? You start to have other symptoms, such as facial hair growth in women or bone and muscle pain. Where can you learn more? Visit our health information library at [email or web address]/TriVascularo You can also view health information on [employer], your personal patient account. Log in or sign up today. Enter V108 in the search box to learn more about Acne: After Your Visit. ?? [id number] z[employer]u. Care instructions adapted under license by [facility]. This care instruction is for use with your licensed healthcare professional. If you have questionsabout a medical condition or this instruction, always ask your healthcare professional. [employer] disclaims any warranty or liability for your use of this information. Content Version: 10.4.906144; Current as of: November 11, 2013 [facility] Acne: After Your Visit Your Care Instructions Acne is a skin problem that shows up as blackheads, whiteheads, and pimples. It most often affects the face, neck, and upper body. Acne occurs when oil and skin cells clog the skin's pores. Acne usually starts during the teen years and often lasts into adulthood. Gentle cleansing every daycontrols most mild acne. If home treatment does not work, your doctor may prescribe creams, antibiotics, or a stronger medicine called isotretinoin. Sometimes control pills help women who have monthly acne flare-ups. Follow-up care is a sylvester part of your treatment and safety. Be sure to make and go to all appointments, and call your doctor if you are having problems. It???s also a good idea to know your test resultsand keep a list of the medicines you take. How can you care for yourself at home? ?? Gently wash your face 1 or 2 times a day with warm (not hot) water and a mild soap or cleanser. Always rinse well. ?? Use an lsvp-aid-jqcieyh lotion or gel that contains benzoyl peroxide. Start with a small amount of 2.5% benzoyl peroxide and increase the strength as needed. Benzoyl peroxide works well for acne, but you may need to use it for up to 2 months before your acne starts to improve. ?? Apply acne cream, lotion, or gel to all the places you get pimples, blackheads, or whiteheads, not just where you have them now. Follow the instructions carefully. If your skin gets too dry and scaly or red and sore, reduce the amount. For the best results, apply medicines as directed. Try not to miss doses. ?? Do not squeeze or pick pimples and blackheads. This can cause infection and scarring. ?? Use only oil-free makeup, sunscreen, and other skin care products that will not clog your pores. ?? Wash your hair every day, and try to keep it off your face and shoulders. Consider pinning it back or cutting it short. When should you call for help? Watch closely for changes in your health, and be sure to contact your doctor if: ?? You have tried home treatment for 6 to 8 weeks and your acne is not better or gets worse. Your doctor may need to add to or change your treatment. ?? Your pimples become large and hard or filled with fluid. ?? Scars form after pimples heal. ?? You feel sad or hopeless, lack energy, or have other signs of depression while you are taking theprescription medicine isotretinoin. ?? You start to have other symptoms, such as facial hair growth in women or bone and muscle pain. Where can you learn more? Visit our health information library at [email or web address]/Fashism You can also view health information on [employer], your personal patient account. Log in or sign up today. Enter V108 in the search box to learn more about Acne: After Your Visit. ?? [id number] [employer], [employer]. Care instructions adapted under license by [facility]. This care instruction is for use with your licensed healthcare professional. If you have questionsabout a medical condition or this instruction, always ask your healthcare professional. [employer] disclaims any warranty or liability for your use of this information. Content Version: 10.4.929142; Current as of: November 11, 2013 documented in this encounter Progress Notes Geovani Doyle MD - 01/14/2015 4:49 PM EDT Problem: Acne vulgaris, ready to begin isotretinoin. Ivon follows up and is here today with her mother, Caitlyn. She is ready to begin isotretinoin. Baseline labs with a repeat test was normal/negative on 01/12. Physical examination again reveals a pleasent 14-year-old who has significant scarring acne vulgaris with deep pitting and scarring of the shoulders, back, and peripheral face. Assessment and Plan: Acne vulgaris scarring in a 14-year-old, ready to begin isotretinoin. a. Continue Ortho Tri-Cycle during the course of her isotretinoin for acne control, but her control for iPledge purposes/testing will be abstinence/none. b. Begin isotretinoin 40 mg one p.o. q. day. The patient weighs 77 kg. Next month will go to 40 b.i.d. c. Today she was given number 30 with zero refills. d. Repeat lab testing the week of February 14. When these are available we will review them and will be able to call in another month's refill to her [facility] in [place]. e. Triglycerides were not tested. Will need to add this onto testing. Return to Clinic in two months for repeat check. COPY: Russell Oneil M.D. documented in this encounter Plan of Treatment Not on filedocumented as of this encounter Visit Diagnoses Diagnosis Acne vulgaris Other acne documented in this encounter Care Teams Prepared Foods Production Team Member Relationship Specialty Start Date End Date Russell Oneil MD PCP - General 03/29/14 02/22/22 8 [place] [id number] documented as of this encounter
--- OUTSIDE RECORDS SUMMARY | 2022-07-27 10:50 | XMS_ITS | Encounter Summary ---
:2000 Author Organization [facility] [place] [address] Care Team Providers Name Role Phone Russell Oneil MD Primary Care Provider Reason for Visit Reason Comments Acne Encounter Details Date Type Department Care Team Description 12/13/2014 Office Visit [facility] at [facility] Geovani Cortes MD Acne vulgaris [address] [facility] [address] [place] [address] DERMATOLOGY [phone] [place], [place] [address] (Wo rk) Social History Tobacco Use Types Packs/Day Years Used Date Smoking Tobacco: Never Sex Assigned at Date Recorded Not on file documented as of this encounter Patient Instructions Patient InstructionsCourt Arcos LPN - 12/13/2014 9:14 AM EDT Images from the original note were not included. [facility] Acne: After Your Visit Your Care Instructions [...] cleanser. Always rinse well. ?? Use an vvwe-vlx-zvmusnd lotion or gel that contains benzoyl peroxide. [...] more? Visit our health information library at [email or web address] You can also view health information on [employer], your personal patient account. Log in or sign up today. Enter V108 in the search box to learn more about Acne: After Your Visit. ?? [phone] [employer], [employer]. Care instructions adapted under license by [facility]. This care instruction is for use with your licensed healthcare professional. If you have questionsabout a medical condition or this instruction, always ask your healthcare professional. [employer] disclaims any warranty or liability for your use of this information. Content Version: 10.3.708044; Current as of: November 11, 2013 documented in this encounter Progress Notes Geovani Doyle MD - 12/13/2014 9:36 AM EDT Problem: Acne vulgaris. Ivon is a 14-year-old who has had significant scarring acne, worsening over the last three years. She is referred today by Dr. Oneil. She had initially been seen briefly at [facility], but the traveling and coordinating visits proved to be difficult, and so she never actually started the medication. Mom and Ivon are not sure whether she was actually registered also on the [employer] program. Treatment in the past has included clindamycin, which she has taken orally for two or three months prescribed by Dr. Oneil. She has used ProActive X and various other topicals without significant benefit. She was started on the oral control pill Ortho Tri-Cyclen for treatment of her acne as well, and this has helped somewhat. The patient is here today with her mother, Caitlyn. Physical examination reveals a pleasant 14-year-old who has significant scarring acne vulgaris with deep pitting scarring of the upper shoulders, back, peripheral face. Today she states her acne is actually relatively good comparatively. Assessment and Plan: Acne vulgaris, scarring, in a 14-year-old. a. Recommend the patient continue Ortho Tri-Cyclen during the course of her isotretinoin but that her control for iPLEDGE purposes will be abstinence and none. b. Informational brochure given. Discussed [employer] program and requirements. Informational brochure given. She was registered today on the [employer] program. c. Recommend I see her again in a month. Today urine test was obtained and was negative. Obtain baseline serum lab work in one month to include a test at that time. Return to clinic here in one month for repeat check and to begin isotretinoin. d. Patient weighs 170 pounds or 77 kg. Note: Mom states that triglycerides and cholesterol were mildly elevated on baseline lab testing at one location but not when retested at [facility]. Stressed the importance of avoiding processed foods, sodas while on Accutane because of their adverse effects on lipids, particularly triglycerides. COPY: Russell Oneil M.D. documented in this encounter Plan of Treatment Not on filedocumented as of this encounter Visit Diagnoses Diagnosis Acne vulgaris Other acne documented in this encounter Care Teams [id number] Programmer Relationship Specialty Start Date End Date Russell Oneil MD PCP - General 03/29/14 02/22/22 8 [place] [address] documented as of this encounter
--- OUTSIDE RECORDS SUMMARY | 2022-07-27 10:50 | XMS_ITS | Encounter Summary ---
:2000 Author Organization [facility] [place] [address] Care Team Providers Name Role Phone Russell Oneil MD Primary Care Provider Reason for Visit Auth/Cert Specialty Diagnoses / Procedures Referred By Contact Refer red To Contact Diagnoses abd pain Procedures PRO COLONOSCOPY, DIAGNOSTIC PRO UPPER GI ENDOSCOPY, DIAGNOSTIC PEDIATRIC COLONOSCOPY EGD, UPPER GI ENDOSCOPY Referral ID Status Reason Start Date Expiration Date Visits Requ ested Visits Authorized [id number] 1 1 Encounter Details Date Type Department Care Team Description 12/31/2016 Anesthesia Event Gastroenterology at [facility] Timothy Muhammad V [facility] [place] [address] [facility] [phone] ANESTHESIOLOGY [place], [place] [address] Anesthesia Record Procedure Summary Procedure Name Responsible Anesthesia Start Anesthesia Stop Anesthesiologist Time Time PEDIATRIC COLONOSCOPY Timothy Muhammad MD 12/31/16 1326 05/0 09/18 1406 Events Date Time Event Comment 12/31/2016 1237 1326 AN Verify 1326 Start 1329 An Start Data 1333 An Induction 1339 Anesthesia Ready 1405 an stop data 1406 Recovery or ICU Handoff Patient care was transferred to the destination unit staff after review of the patient's medica l history, current anesthetic/surgi manuel status and plan, according to the Provider Handoff Checklist. 1406 Stop Name Total IV Lidocaine 60 mg Propofol 60 mg Propofol INF 453.68 mg lactated Ringers infusion 200 mL Agents Name O2 Air N2O Blood No blood administrations on file. Lines, Drains, and Airways Type Details Placement Removal PIV 12/31/16; 1258; (ant r f/a); 12/31/16 1258 by Neli dorsey, 12/31/16 1525 by Pete mjlq-iox-llnycp catheter JOSE Arthur RN system; 20 gauge, 1 in length; intradermal injection, tolerated well; 0; 12/31/16; 1525 documented in this encounter Social History Tobacco Use Types Packs/Day Years Used Date Smoking Tobacco: Never Alcohol Use Standard Drinks/Week Comments No 0 (1 standard drink = 0.6 oz pure alcoho l) Sex Assigned at Date Recorded Not on file documented as of this encounter OR Notes Anesthesia Postprocedure Evaluation - Timothy Muhammad MD - 12/31/2016 3:50 PM EDT [facility] Department of Anesthesiology Post-procedure Note Patient: Ivon Mcqueen Procedure Summary Date Anesthesia Start Anesthesia Stop Room / Location 12/31/16 1326 1406 [facility] ENDO 1 / [facility] ENDOSCOPY Procedure Diagnosis Surgeon Responsible Provider PEDIATRIC COLONOSCOPY (N/A ); EGD, UPPER GI ENDOSCOPY (N/A Trunk); COLONOSCOPY FLEXIBLE, WITH BX (WRVU 3.66) (N/A Abdomen) Chronic abdominal pain (abd pain) Jennifer Lion MD Gandevia, Vijay V, MD All Anesthesia Providers: Anesthesiologist: Timothy Muhammad MD SPRAYER HAND: Danelle Sawyer CRNA Last (1hr) Vitals: BP 112/67 (12/31/16 1525) Temp Pulse Resp 18 (12/31/16 1525) SpO2 98 % (12/31/16 1525) Patient Location: PACU/SDP Level of Consciousness: Awake and Alert Pain Management: Satisfactory Analgesia PONV: None Cardiovascular Status: At Baseline and Hemodynamically Stable Respiratory Status: At Baseline, Room Air and Stable Respiratory Status Postoperative Fluid Status: Intravascular EUvolemia Possible Anesthetic Complications: NONE apparent at time of evaluation Final Primary Anesthesia Type: MAC (The anesthetic type performed was the same as planned.) Comments: Anesthesia Preprocedure Evaluation - Timothy Muhammad MD - 12/31/2016 9:21 AM EDT Pre-Anesthesia Evaluation for: Ivon Mcqueen a 16 y.o. female. Procedure(s): PEDIATRIC COLONOSCOPY EGD, UPPER GI ENDOSCOPY Patient Active Problem List Diagnosis ??? Hirsutism Excess hair on chest and linea alba, but face is spared. ??? Chronic pelvic pain in female ??? Eczema ??? Acne vulgaris Past Medical History: Diagnosis Date ??? Allergic state ketamine ??? Chronic pelvic pain in female 10/14/2016 ??? Headache ??? Hirsutism 10/14/2016 Excess hair on chest and linea alba, but face is spared. ??? Pneumonia ??? Vision abnormalities Past Surgical History: Procedure Laterality Date ??? KNEE CARTILAGE SURGERY Left ??? WRIST SURGERY Social History Substance Use Topics ??? Smoking status: Never Smoker ??? Smokeless tobacco: Not on file ??? Alcohol use Not on file History Drug Use Not on file Allergies Allergen Reactions ??? Ketamine Medications: MAR and/or home medications have been reviewed. Physical Exam: There were no vitals filed for this visit. There is no height or weight on file to calculate BMI. Anesthesia Physical Exam Anesthesia Plan: ASA 1 MAC, with a(n) intravenous induction Medical record reviewed. Patient is a 16 year old female to under upper endoscopy/colonoscopy to evaluate abdominal pain. No other noted history. Plan: MAC sedation with propofol Region - Other Informed Consent: Anesthetic plan and risks discussed with patient. Plan discussed with SPRAYER HAND. PAT Staff Note documented in this encounter Plan of Treatment Not on filedocumented as of this encounter Visit Diagnoses Not on filedocumented in this encounter Administered Medications Inactive Administered Medications - up to 3 most recent administrations Medication Order MAR Action Action Date Dose Rate Site lactated Ringers infusion New Bag 12/31/2016 1:26 PM EDT 100 mL/hr, Intravenous, CONTINUOUS, Starting on Sat12/31/16 at 1315, Until Sat12/31/16 at 1525, Endoscopy (Day of Procedure) lidocaine (PF) (XYLOCAINE) 100 mg/5 mL (2 %) Given 7 1:33 PM EDT 60 mg injection PRN, Starting on Sat12/31/16 at 1333, Until Sat12/31/16 at 1406, Anesthesia Intra-op, Routine propofol (DIPRIVAN) 10 mg/mL bolus injection Given 7 1:34 PM EDT 30 mg (Anesthesia) PRN, Starting on Sat12/31/16 at 1333, Until Sat12/31/16 at 1406, Anesthesia Intra-op Given 12/31/2016 1:33 PM EDT 30 mg propofol (DIPRIVAN) Rate/Dose 12/31/2016 1:47 125 mcg/kg/min 59.2 mL /hr infusion Change PM EDT CONTINUOUS PRN, Starting on Sat12/31/16 at 1332, Until Sat12/31/16 at 1406, Anesthesia Intra-op, Routine New Bag 12/31/2016 1:32 PM EDT 250 mcg/kg/min 118.4 mL/hr documented in this encounter Care Teams Hoisting Engineer Relationship Specialty Start Date End Date Russell Oneil MD PCP - General 03/29/14 02/22/22 8 [place] [address] documented as of this encounter
--- OUTSIDE RECORDS SUMMARY | 2022-07-27 10:50 | XMS_ITS | Encounter Summary ---
:2000 Author Organization [facility] [place] [address] Care Team Providers Name Role Phone Unavailable Primary Care Provider Unavailable Encounter Details Date Type Department Care Team Description 10/02/2013 Office Visit [facility] Michelle Matthews [address] [place] [address] [phone] [place], [place] [address] (Wo rk) Social History Tobacco Use Types Packs/Day Years Used Date Smoking Tobacco: Never Assessed Sex Assigned at Date Recorded Not on file documented as of this encounter Plan of Treatment Not on filedocumented as of this encounter Visit Diagnoses Not on filedocumented in this encounter
--- OUTSIDE RECORDS SUMMARY | 2022-07-27 10:50 | XMS_ITS | Encounter Summary ---
:2000 [place] [address] Care Team Providers Name Role Phone Russell Oneil MD Primary Care Provider Reason for Visit Reason Onset Date Comments Medication Refill 07/08/2017 Encounter Details Date Type Department Care Team Description 07/08/2017 Refill [place] [facility] Tracy Desai APRN [facility] [place] [address] [place] [address] PEDIATRIC ENDOCRINOLOGY [phone] [place], [place] [address] (Wo rk) Social History Tobacco [...] on filedocumented in this encounter Care Teams Private Equity Associate Relationship Specialty Start Date End Date Russell Oneil MD PCP - General 03/29/14 02/22/22 8 [place] [address] documented as of this encounter
--- OUTSIDE RECORDS SUMMARY | 2022-07-27 10:50 | XMS_ITS | Encounter Summary ---
:2000 Author Organization [facility] [place] [address] Care Team Providers Name Role Phone Russell Oneil MD Primary Care Provider Encounter Details Date Type Department Care Team Description 01/01/2017 Telephone Pediatric Gastroenterology at [facility] [place] [address] [place] [phone] Social History Tobacco Use Types Packs/Day Years Used Date Smoking Tobacco: Never Alcohol Use Standard Drinks/Week Comments No 0 (1 standard drink = 0.6 oz pure alcoho l) Sex Assigned at Date Recorded Not on file documented as of this encounter Miscellaneous Notes Telephone Encounter - Jennifer Lion MD - 01/01/2017 12:56 PM EDT Mother called. Ivon has chest pain , behind sternum since yesterday(after egd/colo), sharp pain withdeep breath and eating. No fever. No emesis. No other symptoms. No symptoms in between. Advised to notify me for SOB, fever, worsening symptoms. Will get 2 view chest x ray. Symptoms might be secondary to irritation for scope/biopsy yesterday . Can take OTC maolx or mylantafor 2-3 day and see the response. Mother agrees with the plan. documented in this encounter Plan of Treatment Not on filedocumented as of this encounter Visit Diagnoses Not on filedocumented in this encounter Care Teams Americanization Teacher Relationship Specialty Start Date End Date Russell Oneil MD PCP - General 03/29/14 02/22/22 8 [place] [address] documented as of this encounter
--- OUTSIDE RECORDS SUMMARY | 2022-07-27 10:50 | XMS_ITS | Encounter Summary ---
:2000 Author Organization [facility] [place] [address] Care Team Providers Name Role Phone Russell Oneil MD Primary Care Provider Reason for Visit Auth/Cert Specialty Diagnoses / Procedures Referred By Contact Refer red To Contact Diagnoses abd pain Procedures PRO COLONOSCOPY, DIAGNOSTIC PRO UPPER GI ENDOSCOPY, DIAGNOSTIC PEDIATRIC COLONOSCOPY EGD, UPPER GI ENDOSCOPY Referral ID Status Reason Start Date Expiration Date Visits Requ ested Visits Authorized [id number] 1 1 Encounter Details Date Type Department Care Team Description 12/31/2016 Surgery Gastroenterology at [facility] Jennifer Lion MD [place] [address] [place], [place] [address] Social History Tobacco Use Types Packs/Day Years Used Date Smoking Tobacco: Never Alcohol Use Standard Drinks/Week Comments No 0 (1 standard drink = 0.6 oz pure alcoho l) Sex Assigned at Date Recorded Not on file documented as of this encounter Last Filed Vital Signs Vital Sign Reading Time Taken Comments Blood Pressure 110/82 12/31/2016 12:46 PM EDT Pulse 77 12/31/2016 12:46 PM EDT Temperature - - Respiratory Rate 18 12/31/2016 12:46 PM EDT Oxygen Saturation 97% 12/31/2016 12:46 PM EDT Inhaled Oxygen Concentration - - Weight 78.9 kg (174 lb) 12/31/2016 12:46 PM EDT Height 162.6 cm (5' 4) 12/31/2016 12:46 PM EDT Body Mass Index 29.87 12/31/2016 12:46 PM EDT Body Mass Index Percentile 95.62 % 12/31/2016 12:46 PM E DT Growth Chart: [facility] (Girls, 2-20 Years) documented in this encounter Discharge Instructions Discharge InstructionsYane Irene, RN - 12/31/2016 2:09 PM EDT UPPER GI ENDOSCOPY WHAT TO EXPECT AFTER THE PROCEDURE Medications You may have a mild sore throat. Ice chips, popsicles, over the counter throat lozenges or spray may help numb your throat. This procedure should not cause a fever. Call your healthcare provider or seek immediate medical attention if: You have trouble swallowing. You have belly pain. Your stools are black or tarlike or have streaks of blood. You are sick to your stomach or cannot keep fluids down. Watch closely for changes in your health, and be sure to contact your doctor IF Your throat still hurts after a day or two You do not get better as expected. Colonoscopy and polyp removal What to expect after the procedure You may feel a little more gassy or bloated than usual, this is normal. You should expect the return of normal bowel function in the next 2 to 3 days. Because some polyps were removed, you may see a little blood with the next few bowel movements, this should be a small amount ( less than a few tablespoons) and will resolve on it's own. ACTIVITY Because of the sedation that you received Your judgement and reaction time are effected ?? Go home and rest for the remainder for the day. You may resume your normal activities tomorrow ?? Change from one position to the next slowly because you may lose your balance unexpectedly. ?? Be careful on stairs, as you may be unsteady. FOR THE NEXT 24 HRS ?? DO NOT DRIVE OR OPERATE MACHINERY ?? DO NOT DRINK ALCOHOLIC BEVERAGES ?? DO NOT SIGN LEGAL DOCUMENTS ?? If you are a smoker: DO NOT SMOKE WHILE YOU ARE ALONE Diet ?? Start by eating small portions of foods that ordinarily will not upset your stomach, avoid gas producing foods for the next few days. ?? Be gentle with what you choose to start with ?? A soft diet may be helpful for the next 3 days as this may help to keep your stools soft. ?? Drink plenty of fluids ( unless your doctor has told you not to). Medicines Avoid medicines that influence the way your blood clots for the next week. These would include anti-inflammatory medicine, such as ibuprofen( Advil, Motrin) and naproxen ( Aleve). If you need something for discomfort, Tylenol (Acetaminophen) is safe if used as directed. Your Doctor will tell you whento restart your prescribed blood thinners The IV site-- slight tenderness, or redness is normal, you can use warm compresses if you get concerned. If the tenderness +/or redness increases or foul drainage and a red streak occurs, please contact your PCP immediately. When should you call for help? Call 911 anytime you think you may need emergency care. For example If you pass out (loss of consciousness) If you pass maroon or bloody stools If you have severe belly pain Call your healthcare provider or seek immediate medical care if: Your stools are black or tar like Your stools have streaks of blood that is more pronounced with each BM You have belly pain, or your belly is swollen and firm You vomit You have a fever You are very dizzy Watch closely for changes in your health, and be sure to contact your doctor if you have any problems. Your Doctor will let you know when you will need your next colonoscopy. The results of your test andyour risk for colorectal cancer will help your doctor decide how often you need to be checked. Saturday-Saturday Same Day Endo [phone] [id number] Otherwise contact [phone] and ask to speak to the copy messenger salesperson burial needs Follow up care is a sylvester part of your treatment and safety. Be sure to make and go to all appointments, and call your doctor if you are having problems. Discharge instructions reviewed with patient who expresses understanding documented in this encounter Medications at Time of Discharge Medication Sig Dispensed Refills Start Date End Date minocycline Take 50 mg by 0 10/03/2016 08/30/2017 (MINOCIN;DYNACIN) 50 mg mouth 2 times Capsule daily. polyethylene glycol Take 17 g by mouth 510 g 5 12/18/19 17 06/15/2017 (MIRALAX) 17 gram/dose daily for 180 Powder days. cyproheptadine (PERIACTIN) 0 7 11/04/2020 4 mg Tablet SUMAtriptan (IMITREX) 100 0 10/03/2016 11/04/2020 mg Tablet clindamycin (CLEOCIN T) 1 Apply to 60 mL 5 10/12/2016 07/04/2018 % Solution face/chest twice daily after washing spironolactone (ALDACTONE) Take 1 tablet by 180 tablet 3 11/13/2018 100 mg TabletIndications: mouth 2 times Hirsutism daily. documented as of this encounter H&P Notes Jennifer Lion MD - 12/31/2016 1:12 PM EDT HPI: Ivon is a 16 yrs old female here for initial evaluation of abdominal pain . Pt is here with hermother.is She has been having abdominal pain for about a year now ,RLQ/Right mid mid abdomen in location ,sharp nature of pain , no radiation , Constant but can be worse or better, nothing makes it worse, Nothing makes it better, Associated symptoms: no heartburn, occasional sour burps, sometimes nausea, no vomiting, no dysphagia, no dysuria. Gets up at night due to pain - about few times per month. Poops daily, no large stool, no hard stool,no straining with stooling, not clogged toilet, no rectalpain with stooling,no diarrhea, no rectal bleeding, no stool accidents, has tenesmus, no defecation urgency. Appetite fluctuates. Weight has been stable - lost 4 lbs weight recently as she has been more active. No oral sores, No skin rash, no joint pain. Energy is variable - worse when she has pain Sleep is ok.Has mood swings. School is going good. Grades are good. No vaginal discharge. Not sexually active. No history of STI. Allergies Allergen Reactions ??? Ketamine Scheduled Meds: Continuous Infusions: ??? lactated Ringers PRN Meds:. Active Ambulatory Problems Diagnosis Date Noted ??? Acne vulgaris 12/13/2014 ??? Eczema 10/07/2016 ??? Hirsutism 10/14/2016 ??? Chronic pelvic pain in female 10/14/2016 Resolved Ambulatory Problems Diagnosis Date Noted ??? No Resolved Ambulatory Problems Past Medical History: Diagnosis Date ??? Allergic state ??? Chronic pelvic pain in female 10/14/2016 ??? Headache ??? Hirsutism 10/14/2016 ??? Pneumonia ??? Vision abnormalities Family History Problem Relation Age of Onset ??? Depression Mother ??? Heart Disease Mother PVCs ??? Hearing Loss Mother ??? Hyperlipidemia Father ??? Hypertension Maternal Grandfather ??? Obesity Maternal Grandfather ??? Cancer Maternal Grandmother Brain ??? Heart Disease Maternal Grandmother ??? Hypertension Maternal Grandmother ??? Substance Abuse Maternal Grandmother ??? Diabetes Paternal Grandmother ??? Hypertension Paternal Grandmother ??? Ulcerative Colitis Neg Hx ??? Crohn Disease Neg Hx ??? Autoimmune Disorder Neg Hx ??? Thyroid Disease Neg Hx Physical Exam General appearance: Alert, Active, No acute distress, No pallor, No cyanosis, No icterus HEENT: Normocephalic, atraumatic, neck supple, No oral sores, No cervical lymphadenopathy CVS: s1 s2 normal, regular rate, rhythm, no murmur RESPI : clear to ascultation b/l, no added sounds ABDOMEN: Soft, Non tender, non distended, no organomegaly noted, BS present SKIN: No rash A/P: 16 y/o female with Right sided abdominal pain. Plan to get EGD /colonoscopy with biopsy to evaluate further. Obtained informed consent. Jennifer Lion MD documented in this encounter Plan of Treatment Not on filedocumented as of this encounter Procedures Procedure Name Priority Date/Time Associated Comments Diagnosis SURGICAL PATHOLOGY Routine 12/31/2016 2:17 PM Res ults for this REPORT EDT procedure are i n the results section. SPECIMEN TO PATHOLOGY Routine 12/31/2016 2:17 PM Results for this EDT procedure are i n the results section. SPECIMEN TO PATHOLOGY Routine 12/31/2016 2:17 PM Results for this EDT procedure are i n the results section. SPECIMEN TO PATHOLOGY Routine 12/31/2016 2:17 PM Results for this EDT procedure are i n the results section. SPECIMEN TO PATHOLOGY Routine 12/31/2016 2:17 PM Results for this EDT procedure are i n the results section. SPECIMEN TO PATHOLOGY Routine 12/31/2016 2:17 PM Results for this EDT procedure are i n the results section. COLONOSCOPY FLEXIBLE, 12/31/2016 1:27 PM Chronic abdom inal WITH BX (WRVU 3.66) EDT pain EGD, UPPER GI 12/31/2016 1:27 PM Chronic abdominal ENDOSCOPY EDT pain PEDIATRIC COLONOSCOPY 12/31/2016 1:27 PM Chronic abdom inal EDT pain UPPER GI ENDOSCOPY Routine 12/31/2016 1:19 PM Res ults for this EDT procedure are i n the results section. PEDIATRIC COLONOSCOPY Routine 12/31/2016 1:17 PM Results for this EDT procedure are i n the results section. documented in this encounter Results Surgical Pathology Report (12/31/2016 2:17 PM EDT) Component Value Ref Test Analysis Performed At [facility] Range Method Time Signature Surgical [id number] ?Location: ; [facility]; [facility] Report The signing pathologist has (i) examined the relevant preparation(s) for the [facility] specimen(s) and (ii) rendered or confirmed the diagnosis(es) . HOSP[facility] . ?Surgic al Pathology DIAGNOSIS A - Duodenum, ??endoscopic biopsies: ?No diagnostic abnormality. B - Stomach, ??endoscopic biopsies: ?No diagnostic abnormality. ?No Helicobacter sp. (H ??&E stain). ?Fragment of duodenum mucosa with no diagnostic abnorma lity. C - Esophagus, ??endoscopic biopsies: ?No diagnostic abnormality. D - Terminal ileum, ??endoscopic biopsies: ?Usual abundant mucosal lymphoid tissue with reactive f ollicles. E - Colon, random, ??endoscopic biopsies: ?No diagnostic abnormality. Electronically signed by: ??Lukasz Mar MD Verified: ??01/01/2017 ?Pathologist CLINICAL INFORMATION Specimen Submitted: A - Duodenum B - Stomach C - Esophagus D - Terminal ileum E - Colon, random Clinical History: Right upper quadrant abdominal pain. Clinical Diagnosis: Same. SPECIMEN PROCESSING A - Labeled/Fixative: Duodenum, formalin. Quantity/Size: Two, 0.2 and 0.7 cm. Tissue Description: ??Soft, pink tissues . Sections/Processing: (T1) B - Labeled/Fixative: Stomach, formalin. Quantity/Size: Three, ranging from 0.1-0.4 cm. Tissue Description: ??Soft, pink tissues . Sections/Processing: (T1) C - Labeled/Fixative: Esophagus, formalin. Quantity/Size: Four, ranging from 0.1-0.5 cm. Tissue Description: ??Soft, white tissues . Sections/Processing: (T1) D - Labeled/Fixative: Terminal ileum, formalin. Quantity/Size: Four, averaging 0.3 cm. Tissue Description: ??Soft, pink tissues . . SPECIMEN PROCESSING Sections/Processing: (T1) E - Labeled/Fixative: Colon random, formalin. Quantity/Size: Multiple, ranging from 0.3-0.8 cm. Tissue Description: ??Soft, pink tissues . Sections/Processing: (T2) ??sns Specimen (Source) Anatomical Collection Method Collection Time Re ceived Time Location / / Volume Laterality 12/31/2016 2:17 PM EDT Jennifer Lion MD PATHOLOGY/CYTOLOGY ORDERABLE S Performing Organization Address City/[facility]/[place] [address] Specimen to Pathology (surgical or derm) (12/31/2016 2:17 PM EDT) Specimen Anatomical Collection Method Collection Time Receive d Time (Source) Location / / Volume Laterality AP Specimen 12/31/2016 2:17 PM 7 2:17 EDT PM EDT Narrative [facility] - 12/31/2016 2:17 PM EDT Specimen requisition ordered. ??Separate Pathology report to follow Jennifer Lion MD PATHOLOGY/CYTOLOGY ORDERABLE S Performing Organization Address City/[facility]/[place]IP [facility] [place] [address] Specimen to Pathology (surgical or derm) (12/31/2016 2:17 PM EDT) Specimen Anatomical Collection Method Collection Time Receive d Time (Source) Location / / Volume Laterality AP Specimen 12/31/2016 2:17 PM 7 2:17 EDT PM EDT Narrative [facility] [place] - 12/31/2016 2:17 PM EDT Specimen requisition ordered. ??Separate Pathology report to follow Jennifer Lion MD PATHOLOGY/CYTOLOGY ORDERABLE S Performing Organization Address [facility]/[place]IP [facility] [place] [address] Specimen to Pathology (surgical or derm) (12/31/2016 2:17 PM EDT) Specimen Anatomical Collection Method Collection Time Receive d Time (Source) Location / / Volume Laterality AP Specimen 12/31/2016 2:17 PM 7 2:17 EDT PM EDT Narrative [facility] [place] - 12/31/2016 2:17 PM EDT Specimen requisition ordered. ??Separate Pathology report to follow Jennifer Lion MD PATHOLOGY/CYTOLOGY ORDERABLE S Performing Organization Address [facility] [place] [address] Specimen to Pathology (surgical or derm) (12/31/2016 2:17 PM EDT) Specimen Anatomical Collection Method Collection Time Receive d Time (Source) Location / / Volume Laterality AP Specimen 12/31/2016 2:17 PM 7 2:17 EDT PM EDT Narrative [facility] [place] - 12/31/2016 2:17 PM EDT Specimen requisition ordered. ??Separate Pathology report to follow Jennifer Lion MD PATHOLOGY/CYTOLOGY ORDERABLE S Performing Organization Address City/[facility] [place] [address] Specimen to Pathology (surgical or derm) (12/31/2016 2:17 PM EDT) Specimen Anatomical Collection Method Collection Time Receive d Time (Source) Location / / Volume Laterality AP Specimen 12/31/2016 2:17 PM 7 2:17 EDT PM EDT Narrative [facility] [place] - 12/31/2016 2:17 PM EDT Specimen requisition ordered. ??Separate Pathology report to follow Jennifer Lion MD PATHOLOGY/CYTOLOGY ORDERABLE S Performing Organization Address City/State/[place] [address] UPPER GI ENDOSCOPY (12/31/2016 1:19 PM EDT) [facility] Method Time Signature UPPER GI [facility] ENDOSCOPY Endoscopy Procedure Date: 12/31/2016 1:19 PM ? Patient Name: Ivon Mcqueen ? Date of : 2000 ? Age: 16 ? Order #: [id number] ? Instrument Name: [id number] ? Procedure: ? Upper GI endoscopy Indications: ? Abdominal pain in the right upper ? quadrant Providers: ? Jennifer Lion MD, Laura Mcqueen RN, ? Lew Torres MD: ?Russell Oneil MD Complications: ? No immediate complications. Procedure: ? Pre-Anesthesia Assessment: ? - Blacklick Protocol: ? - Pre-procedure Verification: Prior ? to the procedure, the patient 's ? identity was verified by full name, ? date of and medical rec ord ? number. The patient's identit y was ? verified on all pertinent med ical ? records, including History an d ? Physical. Also prior to the ? procedure, a History and Phys ical was ? performed, and patient medica tions, ? allergies and sensitivities w ere ? reviewed. The patient's evelyn ance of ? previous anesthesia was revie wed. The ? risks and benefits of the pro cedure ? and the sedation options and risks ? were discussed with the patie nt. All ? questions were answered and i nformed ? consent was obtained. ? - Marking: The endoscopic pro cedure ? was visually marked on a shahid ent ? wrist band delineating the pa tient ? name, proposed procedure and ? endoscopist's initials. ? - Time-Out: Prior to the star t of the ? procedure, the patient's ? identification, proposed proc edure, ? accurate signed consent, joseph ectly ? labeled images and records, a nd need ? for prophylactic antibiotics were ? verified by the physician, evangelina e nurse ? and the marketing project specialist in the en doscopy ? suite. ? The procedure, indications, b enefits, ? risks and alternatives were e xplained ? to the patient. Specifically ? discussed were potential ? complications including, but not ? limited to, bleeding, perfora tion, ? infection, missing a cancer, and ? adverse medication reactions. The ? Endoscope was introduced thro ugh the ? mouth, and advanced to the se cond ? part of duodenum. The patient ? tolerated the procedure well. The ? upper GI endoscopy was accomp lished ? without difficulty. The patie nt ? tolerated the procedure well. ? Findings: ? The examined esophagus was normal. Biopsies were ? taken with a cold forceps for histology. ? The entire examined stomach was normal. Biopsies were ? taken with a cold forceps for histology. ? The examined duodenum was normal. Biopsies were taken ? with a cold forceps for histology. ? Impression: ?- Normal esophagus. Biopsied. ? - Normal stomach. Biopsied. ? - Normal examined duodenum. B iopsied. Recommendation: ?- Discharge patient to home (with ? parent). ? - Telephone GI clinic for pat hology ? results in 1 week. ? Procedure Code(s): ?? --- Professional --- ? 62538, Esophagogastroduodenos copy, ? flexible, transoral; with bio psy, ? single or multiple CPT copyright 2016 [employer]. All rights reserved. The codes documented in this report are preliminary and upon solution architect review may be revised to meet current compliance requirements. Attending Participation: ? I personally performed the entire procedure. ? eJnnifer Lion MD 12/31/2016 2:06:13 PM Number of Addenda: 0 Note Initiated On: 12/31/2016 1:19 PM Specimen (Source) Anatomical Collection Method Collection Time Re ceived Time Location / / Volume Laterality 12/31/2016 1:19 PM EDT Russell Oneil MD GENERAL SURGICAL ORDERABLES Performing Organization Address City/State/ZIP Code Phon e Number [facility] PEDIATRIC COLONOSCOPY (12/31/2016 1:17 PM EDT) Component Value Ref Test Analysis Performed At [facility] Range Method Time Signature Pediatric [facility] Colonoscopy Endoscopy Procedure Date: 12/31/2016 1:17 PM ? Patient Name: Ivon Mcqueen ? Date of : 2000 ? Age: 16 ? Order #: [id number] ? Instrument Name: [id number] ? Procedure: ? Pediatric Colonoscopy Indications: ? Abdominal pain in the right upper ? quadrant Providers: ? Jennifer Lion MD, Laura Mcqueen RN, ? Lew Torres MD: ?Russell Oneil MD Complications: ? No immediate complications. Procedure: ? Pre-Anesthesia Assessment: ? - Blacklick Protocol: ? - Pre-procedure Verification: Prior ? to the procedure, the patient 's ? identity was verified. The pa tient's ? identity was verified on all ? pertinent medical records. Al so prior ? to the procedure, a History a nd ? Physical was performed, and p atient ? medications, allergies and ? sensitivities were reviewed. The ? patient's tolerance of previo us ? anesthesia was reviewed. The risks ? and benefits of the procedure and the ? sedation options and risks we re ? discussed with the patient. A ll ? questions were answered and i nformed ? consent was obtained. ? - Time-Out: Prior to the star t of the ? procedure, the patient's ? identification, proposed proc edure, ? accurate signed consent, joseph ectly ? labeled images and records, a nd need ? for prophylactic antibiotics were ? verified. ? After I obtained informed con sent, ? the scope was passed under di rect ? vision. Throughout the proced ure, the ? patient's blood pressure, pul se, and ? oxygen saturations were monit ored ? continuously. The Colonoscope was ? introduced through the anus a nd ? advanced to the terminal ileu m. The ? colonoscopy was performed stephani mejia ? difficulty. The patient evelyn ated the ? procedure well. The quality o f the ? bowel preparation was good. ? Findings: ? The colon (entire examined portion) appeared normal. ? Biopsies were taken with a cold forceps for histology . ? The terminal ileum appeared normal. Biopsies were ? taken with a cold forceps for histology. ? Impression: ?- The entire examined colon is ? normal. Biopsied. ? - The examined portion of the ileum ? was normal. Biopsied. Recommendation: ?- Discharge the patient to home with ? parent(s). ? - Telephone GI clinic for cornelio johnson ? results in 1 week. ? Procedure Code(s): ?? --- Professional --- ? 35193, Colonoscopy, flexible; with ? biopsy, single or multiple CPT copyright 2016 [employer]. All rights reserved. The codes documented in this report are preliminary and upon solution architect review may be revised to meet current compliance requirements. Attending Participation: ? I personally performed the entire procedure. ? Jennifer Lion MD 12/31/2016 2:08:01 PM Number of Addenda: 0 Note Initiated On: 12/31/2016 1:17 PM Specimen (Source) Anatomical Collection Method Collection Time Re ceived Time Location / / Volume Laterality 12/31/2016 1:17 PM EDT Russell Oneil MD GENERAL SURGICAL ORDERABLES Performing Organization Address City/State/ZIP Code Phon e Number [facility] documented in this encounter Visit Diagnoses Diagnosis Chronic abdominal pain Abdominal pain, unspecified site documented in this encounter Active and Recently Administered Medications Times are shown in EDT. Continuous Medication Order 12/29/2016 12/30/2016 12/31/2016 lactated Ringers infusion (CANCELED) 1326 (New Bag - Provider: Danelle Sawyer CRNA)1405 (Anesthesia Volume Adjustment - Provider: Danelle Sawyer CRNA) 100 mL/hr, at 100 mL/hr, Intravenous, CO NTINUOUS, Starting 12/31/16 at 1315, Until 12/31/16 at 1525, Endo (Day of Procedure) documented in this encounter Care Teams Guard Range Relationship Specialty Start Date End Date Russell Oneil MD PCP - General 03/29/14 02/22/22 [address] [place] [address] documented as of this encounter
--- OUTSIDE RECORDS SUMMARY | 2022-07-27 10:50 | XMS_ITS | Encounter Summary ---
:2000 Author Organization [place] [address] Care Team Providers Name Role Phone Russell Oneil MD Primary Care Provider Reason for Visit Reason Comments Abdominal Pain Follow-up Encounter Details Date Type Department Care Team Description 07/23/2017 Office Visit Pediatric Jennifer Lion, Elevated ALT measurement (Primary Dx); Gastroenterology at [facility] Abdominal pain, RLQ; [facility] dequan [facility] Chronic abdominal pain; [place] [address] Weight loss [phone] [place] [address] Social History Tobacco Use Types Packs/Day Years Used Date Smoking Tobacco: Never Smokeless Tobacco: Former Alcohol Use Standard Drinks/Week Comments No 0 (1 standard drink = 0.6 oz pure alcoho l) Sex Assigned at Date Recorded Not on file documented as of this encounter Last Filed Vital Signs Vital Sign Reading Time Taken Comments Blood Pressure 131/72 07/23/2017 8:46 AM EST Pulse 75 07/23/2017 8:46 AM EST Temperature 36.7 ??C (98.1 ??F) 07/23/2017 8:46 AM EST Respiratory Rate 18 07/23/2017 8:46 AM EST Oxygen Saturation 100% 07/23/2017 8:46 AM EST Inhaled Oxygen Concentration - - Weight 73.2 kg (161 lb 6 oz) 07/23/2017 8:46 AM EST Height 162.7 cm (5' 4.06) 07/23/2017 8:46 AM EST Body Mass Index 27.65 07/23/2017 8:46 AM EST Body Mass Index Percentile 92.03 % 07/23/2017 8:46 AM ES T Growth Chart: CDC (Girls, 2-20 Years) documented in this encounter Progress Notes Jennifer Lion MD - 07/23/2017 11:30 AM EST I agree with Dr. Rivera's assessment and plan. I personally performed a physical exam, reviewed the history, reviewed medical records and primarily formulated assessment and plan. Jennifer Lion MD Gloria Rivera - 07/23/2017 11:30 AM EST Assessment: 17yoF with history of chronic mild RLQ abdominal pain and tenderness in setting of PCOS and neg Celiac/EGD/[place], but with mildly elevated fecal calprotectin and LFT's. She has had a good response of abdominal pain to lifestyle (diet/activity) changes. Hopefully weight loss is well explained by this aswell, but need to keep a close eye on possibility of NAFLD or other hepatitis as well as insidious onset of IBD, though interval history reassuring on both counts. Plan: 1) Repeat fecal calprotectin and serum CRP today - will determine further pursuit of possible IBD/ileitis (MRI abdomen for evidence of small bowel inflammation). 2) Repeat Hepatic function panel today - If still elevated, will expand liver evaluation (Scottie's, autoimmune hepatitis, Alpha-1 AT, minocycline hepatitis, etc), including U/S of liver. If not elevated, may get limited U/S of kidneys and ovaries. 3) Follow up in 3 months or so. Chief Complaint: Chief Complaint Patient presents with ??? Abdominal Pain ??? Follow-up History of Present Illness: Ivon is a 17yoF last seen by Dr. Lion on 02/08/2017, followed for right sided abdominal pain in the setting of a mildly elevated fecal calprotectin in 70's, and mildly elevated ALT in setting of someobesity and medications the could be related. Otherwise negative workup for celiac and neg EGD/Colonoscopy. We are seeing her immediately after her Endocrinology appointment today for PCOS, with medications as outlined below. She has been taking the Periactin primarily for migraines (not appetite) with good effect. In the interim, pain has improved. It is much less noticeable at baseline, only noticed with quick movements. She has a soft BM at least daily. Weight has trended down attributed to increased activity (walking, working with horses, etc), increased portion control, and less snacking paco prior to bed time. Continues to have some habit related to - No fever, rash, joint pain, nausea, vomiting, hematochezia, melena, tenesmus, urgency, dyschezia. - No urinating difficulty, pain, hematuria. Family Hx: Liver disease on Paternal side MGAbiel from malignancy with liver involvement but unsure of origin vs metastasis. Review of Systems: Gen: Denies fever, malaise, + weight change (decrease), Head: + migraines, well controlled Eyes: Denies recent red eyes, discharge, eye pain, visual changes Ears: Denies earache Nose: Denies recent rhinorrhea, epistaxis Throat: Denies recent throat pain, swallowing difficulty, oral lesions or pain CV: Denies chest pain, abnoral heart beats, extremity edema Resp: Denies dyspnea, wheezing, cough, cyanosis, labored breathing GI: See above : Denies dysuria, hematuria, Musk: Denies new limits to ROM, no joint pain or swelling Neuro: Denies tingling/numbness, weakness. Meds: No longer on Clindamycin or Depot ProVera Confirms remainder: Ortho Evra Patch Hyocyamine- occasional for anti-spasmodic Cyproheptadine. Minocycline and Imitrex- taking for migraines Spironolactone - taking PMH: Patient Active Problem List Diagnosis Code ??? Acne vulgaris L70.0 ??? Eczema L30.9 ??? Hirsutism L68.0 ??? Chronic pelvic pain in female R10.2, G89.29 ??? Sprain of ankle S93.409A ??? Encounter for long-term (current) use of other medications Z79.899 Vital Signs: BP 131/72 Pulse 75 Temp 36.7 ??C (98.1 ??F) (Oral) Resp 18 Ht 162.7 cm (5' 4.06) Wt 73.2 kg (161 lb 6 oz) SpO2 100% BMI 27.65 kg/m2 PHYSICAL EXAM: Gen: Well- appearing, in NAD. Head: NCAT Neck: Supple, full ROM, no LAD, NL thyroid Eyes: EOMI, PERRL, sclera clear, Ears: Deferred Nose: Nares patent, no rhinorrhea Throat: mmm, no oropharyngeal lesions. CV: RRR, NL S1 S2, no murmurs appreciated, 2+ pulses, brisk cap refill, no edema Resp: CTA B/L, no W/R/R, no focal variation. Chest: Normal WOB, no accessory mm use GI: Mild well localized RLQ tenderness to deep palpation. O/w belly soft, NT, ND, no HSM, no masses.NABS. Ext: MAEW, full ROM, no joint inflammation. Neuro: Awake, alert, oriented, interactive, cooperative, speech fluent and content appropriate, appropriate affect for age, good resting tone, no focal deficits. Skin: No bruises, bleeding, no rashes, or foci of infection GLORIA RIVERA MD documented in this encounter Plan of Treatment Not on filedocumented as of this encounter Procedures Procedure Name Priority Date/Time Associated Diagnosis Comme nts CRP, ACUTE Routine 07/23/2017 11:00 Elevated ALT Results for this INFLAMMATION AM EST measurement procedure are i n the results section. GAMMA GT Routine 07/23/2017 11:00 Elevated ALT Results for this AM EST measurement procedure are i n the results section. HEPATIC FUNCTION Routine 07/23/2017 11:00 Elevated ALT Results for this PANEL AM EST measurement procedure are i n the results section. documented in this encounter Results CRP, acute inflammation (07/23/2017 11:00 AM EST) P athologist Signature CRP 3.2 <=4.9 mg/L [facility] Specimen Anatomical Collection Method Collection Time Receive d Time (Source) Location / / Volume Laterality Blood specimen 07/23/2017 11:00 7 (specimen) AM EST 11:06 AM EST Resulting Agency Comment Spec In Lab Jennifer Lion MD CHEMISTRY ORDERABLES Performing Organization Address City/[facility]/ZIP Code Phon e Number [address] Gamma GT (07/23/2017 11:00 AM EST) P athologist Signature GGT 17 5 - 36 [employer]/L [facility] Specimen Anatomical Collection Method Collection Time Receive d Time (Source) Location / / Volume Laterality Blood specimen 07/23/2017 11:00 7 (specimen) AM EST 11:06 AM EST Resulting Agency Comment Spec In Lab Jennifer Lion MD CHEMISTRY ORDERABLES Performing Organization Address City/[facility] [place] [address] Hepatic Function Panel (07/23/2017 11:00 AM EST) P athologist Signature Total Protein 7.3 6.4 - 8.3 ZampleSARAH gm/dL [facility] Albumin 4.2 3.2 - 5.2 JOSE SARAH gm/dL [facility] AST 14 5 - 30 [employer]ARAH unit/L [facility] ALT 9 0 - 25 ZampleSARAH unit/L [facility] Alk Phos 64 55 - 140 ZampleSARAH unit/L [facility] Total 0.3 <=1.0 ZampleSARAH Bilirubin mg/dL [facility] Bili, Direct 0.1 0.0 - 0.3 JOSE SARAH mg/dL [facility] Specimen Anatomical Collection Method Collection Time Receive d Time (Source) Location / / Volume Laterality Blood specimen 07/23/2017 11:00 7 (specimen) AM EST 11:06 AM EST Resulting Agency Comment Spec In Lab Jennifer Lion MD CHEMISTRY ORDERABLES Performing Organization Address City/[facility]/ZIP [facility] Phon e Number [address] documented in this encounter Visit Diagnoses Diagnosis Elevated ALT measurement - Primary Nonspecific elevation of levels of trans aminase or lactic acid dehydrogenase (LDH) Abdominal pain, RLQ Abdominal pain, right lower quadrant Chronic abdominal pain Abdominal pain, unspecified site Weight loss Loss of weight documented in this encounter Care Teams Therapeutic Consultant Relationship Specialty Start Date End Date Russell Oneil MD PCP - General 03/29/14 02/22/22 [address] [place] [address] documented as of this encounter
--- OUTSIDE RECORDS SUMMARY | 2022-07-27 10:50 | XMS_ITS | Encounter Summary ---
:2000 Author Organization [facility] [place] [address] Care Team Providers Name Role Phone Russell Oneil MD Primary Care Provider Reason for Visit Reason Comments Acne Encounter Details Date Type Department Care Team Description 03/18/2015 Office Visit Dermatology at [facility] Geovani Cortes MD Acne vulgaris [address] [facility] [address] [place] [address] DERMATOLOGY [phone] [place], [place] [address] (Wo rk) Social History Tobacco Use Types Packs/Day Years Used Date Smoking Tobacco: Never Sex Assigned at Date Recorded Not on file documented as of this encounter Patient Instructions Patient InstructionsCourt Arcos LPN - 03/18/2015 1:13 PM EDT Images from the original note were not included. [facility] Acne: After Your Visit Your Care [...] cleanser. Always rinse well. ?? Use an [id number] lotion or gel that contains benzoyl peroxide. [...] more? Visit our health information library at [email or web address] You can also view health information on [employer], your personal patient account. Log in or sign up today. Enter V108 in the search box to learn more about Acne: After Your Visit. ?? [id number] [employer], [employer]. Care instructions adapted under license by [facility]. This care instruction is for use with your licensed healthcare professional. If you have questionsabout a medical condition or this instruction, always ask your healthcare professional. [employer] disclaims any warranty or liability for your use of this information. Content Version: 10.4.403795; Current as of: November 11, 2013 documented in this encounter Progress Notes Geovani Doyle MD - 03/18/2015 1:22 PM EDT Problem: Acne vulgaris, ready to begin isotretinoin. Ivon follows up today with her mother, Caitlyn. She and her mother missed the open window last visit, and so now it has been two month and they are ready to try again. Today a urine test was obtained and is negative. Physical examination again reveals a pleasant 14-year-old who has significant scarring acne vulgaris on the lateral cheeks, upper shoulders, back. Assessment and Plan: Acne vulgaris, scarring, in a 14-year-old, ready to begin isotretinoin. a. Continue Ortho Tri-Cyclen during the course of her isotretinoin for acne control, but her control for iPLEDGE purpose testing will be abstinence/none. b. Begin isotretinoin 40 mg one p.o. q.day. The patient weighs 77 kg. Next month we will go to 40 b.i.d. Today she was given #30 with zero refills. c. Return to clinic in another month for repeat check with lab testing immediately prior to that. Today we will call in her prescription to [facility] in [place]. Return to clinic reminder one month. documented in this encounter Plan of Treatment Not on filedocumented as of this encounter Visit Diagnoses Diagnosis Acne vulgaris Other acne documented in this encounter Care Teams Composite Engineer Relationship Specialty Start Date End Date Russell Oneil MD PCP - General 03/29/14 02/22/22 [address] [place] [address] documented as of this encounter
--- OUTSIDE RECORDS SUMMARY | 2022-07-27 10:50 | XMS_ITS | Encounter Summary ---
:2000 Author Organization [facility] [place] [address] Care Team Providers Name Role Phone Russell Oneil MD Primary Care Provider Reason for Visit Reason Comments Follow-up Encounter Details Date Type Department Care Team Description 02/28/2017 Office Visit Pediatric Endocrinology Roberto Carlos, [place] [facility] [place]ilee Muñiz MD syndrome [facility] [place] [address] PEDIATRIC [phone] ENDOCRINOLOGY [place], [place] [address] Social History Tobacco Use Types Packs/Day Years Used Date Smoking Tobacco: Never Alcohol Use Standard Drinks/Week Comments No 0 (1 standard drink = 0.6 oz pure alcoho l) Sex Assigned at Date Recorded Not on file documented as of this encounter Last Filed Vital Signs Vital Sign Reading Time Taken Comments Blood Pressure 128/59 02/28/2017 8:31 AM EDT Pulse 64 02/28/2017 8:31 AM EDT Temperature - - Respiratory Rate - - Oxygen Saturation - - Inhaled Oxygen Concentration - - Weight 79.5 kg (175 lb 4.3 oz) 02/28/2017 8:31 AM EDT Height 163.2 cm (5' 4.25) 02/28/2017 8:31 AM EDT Body Mass Index 29.85 02/28/2017 8:31 AM EDT Body Mass Index Percentile 95.48 % 02/28/2017 8:31 AM ED T Growth Chart: CDC (Girls, 2-20 Years) documented in this encounter Progress Notes Esme Kim MD - 02/28/2017 8:30 AM EDT Subjective: Patient ID: Ivon Mcqueen is a 16 y.o. female. Chief Complaint Patient presents with ??? Follow-up HPI Menstrual Cycle: After the 14-day Provera treatment, Ivon experienced brown spotting 3-4 days after stopping. She also experienced migraine, stomach pain, back pain, nausea, chest tenderness, nausea. She has not had any spotting since then. Her last period was over one year ago, before she was on the Depo-Provera. When she had her periods, they were irregular. Hirsutism: Unwanted long hairs on cheek, chin, underneath jawline, which she plucks out. Worseninghair on upper lip but not yet removing. Ivon also has unwanted hair on her chest described as thick black hairs which she removes with tweezers. She also has hair down her linea alba which she may bleach in the future. Acne: Ivon has acne on her back, face, and chest. She does not find that the topical clindamycin helps her acne, and it also made her skin dry on her face. Abdominal Pain: Ivon is still experiencing abdominal pain daily in her right lower quadrant, with some improvement with her anti-spasmodic medication. One week ago, Ivon experienced a sudden onset of abdominal pain in her left iliac fossa rated 8/10, with the pain improving gradually over a two day period. Ibuprofen slightly relieved the pain. The pain was worsened by pressure, and standing helped relieve the pain slightly. Ivon suggested that the pain she experienced is from a cyst bursting. Ivon's mother is also concerned about her mood, where she swings from laughter to tears. She was described as being pruitt for several weeks. Her weight fell from 78.1 kg in Sep to 76.2 kg in Dec, and was 77.7 kg today yielding a BMI of 29.2. Other than the pain and acne, her general health has been quite good. Medication: Spironolactone: Ivon has not noticed a change in her hair since starting treatment. Social History: Lives with both parents and one brother. Just finished 10th grade with good academicperformance. Participates in field hockey. Father works from [employer], mother employed as a small business director. Past Medical History, Surgical History, and Family History were reviewed and updated in the electronic record. Review of Systems Constitutional: Negative. HENT: Negative. Eyes: Negative. Respiratory: Negative. Cardiovascular: Negative. Gastrointestinal: Positive for abdominal pain. Endocrine: Negative. Genitourinary: Positive for pelvic pain. Musculoskeletal: Negative. Skin: Positive for rash. Mild active acne with some scarring Neurological: Negative. Psychiatric/Behavioral: Negative. Objective: Physical Exam Constitutional: She appears well-developed. No distress. Overweight adolescent female, cooperative for the exam. HENT: Mouth/Throat: Oropharynx is clear and moist. Eyes: Conjunctivae are normal. Pupils are equal, round, and reactive to light. No scleral icterus. Neck: Thyromegaly present. Thyroid Palpable Cardiovascular: Normal rate and regular rhythm. No murmur heard. Pulmonary/Chest: Effort normal. She has no wheezes. Abdominal: Soft. She exhibits no distension and no mass. Genitourinary: No vaginal discharge found. Genitourinary Comments: Not examined Musculoskeletal: She exhibits no edema. Lymphadenopathy: She has no cervical adenopathy. Neurological: She is alert. Skin: Skin is warm. No rash noted. Axillary acanthosis nigricans. Acne scarring on chest, back, and face Terminal hair on linea alba. No facial hair visible Psychiatric: She has a normal mood and affect. Her behavior is normal. BP 128/59 Pulse 64 Ht 163.2 cm (5' 4.25) Wt 79.5 kg (175 lb 4.3 oz) BMI 29.85 kg/m2 Assessment and Plan: Ivon is a 16 year old female presenting with complaints of amenorrhea, hirsutism, acne and acne scarring, and abdominal pain. Her examination findings include acanthosis nigricans, acne scarring on face, chest, and back, as well as terminal hair growth on the linea alba. Her current BMI is 29.85, indicating she is overweight. Given her history and clinical findings, this is consistent with a diagnosis of PCOS (Polycystic Ovarian Syndrome). At our visit today, there was a discussion of management of Ivon's hirsutism with the spironolactone that she has been taking, but at a higher dose. There was also a discussion of beginning an OCP for Ivon for management of her amenorrhea. Ivon will have labs done today, and her mother will be called with the results and to discuss which direction to take. She will be seen for a follow-up appointment in 5 months time. Plan: 1. Labs today: metabolic panel, diabetic screen, free testosterone 2. Consider a change in dose of spironolactone from 1 per day to 2 tablets per day for total of 200mg per day orally; after lab results. 3. Discuss starting OCP after lab results 4. Dr. Azevedo will call with lab results 5. Follow up appointment in 5 months Bailee Azevedo MD - 02/28/2017 8:30 AM EDT Attending Addendum: I personally evaluated the patient, and confirmed the history and physical exam recorded above by Dr. Kim. I agree with impression and plan with the following additions: PE: BP 128/59 Pulse 64 Ht 163.2 cm (5' 4.25) Wt 79.5 kg (175 lb 4.3 oz) BMI 29.85 kg/m2 --> 95 %ile based on CDC 2-20 Years BMI-for-age data using vitals from 02/28/2017. --> Blood pressure percentiles are 94 % systolic and 25 % diastolic based on NHBPEP's 4th Report.Blood pressure percentile targets: 90: 125/80, 95: 129/84, 99 + 5 mmH/97. Several areas of acne scarring on chest and cheeks. Terminal hair on lowe abdomen Assessment/Plan: Ivon has been doing well and family is interested in regulating cycles and will do evaluation for elevated androgens. We recommended following spironolactone instructions at 1 tab BID. Follow up in 6 months. Bailee Azevedo MD Attending Physician Pediatric Endocrinology [facility] Office: [phone] [place] Office: [phone] Pager ID [phone] documented in this encounter Plan of Treatment Not on filedocumented as of this encounter Procedures Procedure Name Priority Date/Time Associated Diagnosis Comme nts TESTOSTERONE, TOTAL Routine 02/28/2017 9:29 AM Re sults for this AND FREE-ESOTERIX EDT procedure are in the results section. DHEA Routine 02/28/2017 9:29 AM Results f or this SULFATE-ESOTERIX EDT procedure a re in the results section. 17-HYDROXYPROGESTER Routine 02/28/2017 9:29 AM Re sults for this ONE-ESOTERIX EDT procedure are i n the results section. VITAMIN D, Routine 02/28/2017 9:29 AM Results f or this 25-HYDROXY EDT procedure are i n the results section. TSH Routine 02/28/2017 9:29 AM Results f or this EDT procedure are i n the results section. T4, FREE Routine 02/28/2017 9:29 AM Results f or this EDT procedure are i n the results section. HEPATIC FUNCTION Routine 02/28/2017 9:29 AM Resul ts for this PANEL EDT procedure are i n the results section. LIPID PANEL (REFLEX Routine 02/28/2017 9:29 AM Re sults for this DIRECT LDL) EDT procedure are i n the results section. documented in this encounter Results T4, free (02/28/2017 9:29 AM EDT) athologist Signature Free T4 1.05 0.93 - 1.70 JOSE HOLLANDCK ng/dL [facility] Specimen Anatomical Collection Method Collection Time Receive d Time (Source) Location / / Volume Laterality Blood specimen 02/28/2017 9:29 AM 017 9:36 (specimen) EDT AM EDT Resulting Agency Comment Spec In Lab Bailee Azevedo MD CHEMISTRY ORDERABLES Performing Organization Address City/State/[place] [address] TSH (02/28/2017 9:29 AM EDT) P athologist Signature TSH 2.44 0.27 - 4.20 JOSE MALDONADOSARAH mlU/ML [facility] Specimen Anatomical Collection Method Collection Time Receive d Time (Source) Location / / Volume Laterality Blood specimen 02/28/2017 9:29 AM 017 9:36 (specimen) EDT AM EDT Resulting Agency Comment Spec In Lab Bailee Azevedo MD CHEMISTRY ORDERABLES Performing Organization Address City/[facility]/[place] [address] (ABNORMAL) Vitamin D, 25-Hydroxy (02/28/2017 9:29 AM EDT) P athologist Signature 25-OH Vit D 26 (L) 30 - 100 [facility] Total ng/mL [facility] Comment: Deficient <10 ng/mL Insufficient 10 to 29 ng/mL Sufficient 30 to 100 ng/mL Potential Intoxication >100 ng/mL According to the US National Osteoporosi s Foundation, Vitamin D concentrations >30 ng/mL are sufficient to protect bone health. ??The National Kidney Foundation has similarly stated that pat ients with Vitamin D concentrations <30ng/mL should be considered to be insu fficient or deficient. http://[facility]/nkf-guidelines http://[employer]/nejm-VitD The [employer] Vitamin D Immunoassay detec ts both 25-OH Vitamin D2 and 25-OH Vitamin D3, but only a total Vitamin D c oncentration is reported. Specimen Anatomical Collection Method Collection Time Receive d Time (Source) Location / / Volume Laterality Blood specimen 02/28/2017 9:29 AM 017 (specimen) EDT 11:03 AM EDT Resulting Agency Comment Spec In Lab Bailee Azevedo MD CHEMISTRY ORDERABLES Performing Organization Address City/State/[place] [address] Lipid Panel (02/28/2017 9:29 AM EDT) Patholo gist Method Time Signature Chol, Total 189 <=239 JOSE mg/dL [facility] Triglycerides 99 <=199 JOSE mg/dL [facility] HDL 48 >=40 JOSE mg/dL [facility] LDL Cholesterol 121 <=190 JOSE mg/dL [facility] Chol/HDL Ratio 3.9 ratio [facility] Lipid See Note JOSE Interpretation [facility] Comment: Lipid management should be guided by a p atient? s ASCVD risk, goals and preferences. ACC/AHA Guidelines recommend high intens ity statin if clinical ASCVD or LDL greater than or equal to 190 mg/dL. http://[employer].com/WJG-UTQ-Ksvzhothz Adults aged 40-75 with LDL 70-189 mg/dL should have their 10 year ASCVD risk estimated with the ACC/AHA ASCVD risk es timator http://tools.acc.org/MJRHN-Fpex-Stwtvbpz r/ Statin should be discussed if risk great er than or equal to 7.5% in non-diabetics. With diabetes, moderate i ntensity statin is recommended if risk less than 7.5%, high intensity if risk g reater than or equal to 7.5%. Annual lipid monitoring on statins is no t necessary. Evaluate secondary causes of Triglycerid es greater than 500 mg/dL or LDL greater than 190 mg/dL: See table 6 of A CC/AHA Guideline. Lifestyle modification is a critical com ponent of ASCVD risk reduction. Specimen Anatomical Collection Method Collection Time Receive d Time (Source) Location / / Volume Laterality Blood specimen 02/28/2017 9:29 AM 017 9:36 (specimen) EDT AM EDT Resulting Agency Comment Spec In Lab Bailee Azevedo MD CHEMISTRY ORDERABLES Performing Organization Address City/State/[place] [address] (ABNORMAL) Hepatic Function Panel (02/28/2017 9:29 AM EDT) athologist Signature Total Protein 7.5 6.4 - 8.3 [facility]/dL [facility] Albumin 4.1 3.2 - 5.2 [facility] gm/dL [facility] AST 21 5 - 30 [facility] unit/L [facility] ALT 55 (H) 0 - 25 [facility] unit/L [facility] Alk Phos 87 55 - 140 [facility] unit/L [facility] Total 0.4 <=1.[address] [facility] Bilirubin mg/dL [facility] Bili, Direct 0.1 0.0 - 0.3 [facility] mg/dL [facility] Specimen Anatomical Collection Method Collection Time Receive d Time (Source) Location / / Volume Laterality Blood specimen 02/28/2017 9:29 AM 017 9:36 (specimen) EDT AM EDT Resulting Agency Comment Spec In Lab Bailee Azevedo MD CHEMISTRY ORDERABLES Performing Organization Address City/State/[place] [address] DHEA Sulfate-Esoterix (02/28/2017 9:29 AM EDT) athologist Signature DHEAS-Eso 285 mcg/dL [facility] Comment: See scan report Reference Ranges: mcg/dL Premature (26-28 Weeks) Day 4: ? 123-882 Premature (31-35 Weeks) Day 4: ? 122-710 Full Term Day 3: ??88-356 1-11 Months: ??DHEA-S levels fall to <11 2 during the first month and decrease further to <49 by 6 months of a ge. 1-5 Years: ?<57 6-7 Years: ?<72 8-10 Years: ? <193 Reilly Stage ?Age (years) ? Range Males 1 ? <9.8 ?13-83 2 ?9.8-14 .5 ? 42-109 3 ?10.7-1 5.4 ?48-200 4 ?11.8-1 6.2 ? 102-385 5 ?12.8-1 7.3 ? 120-370 Females 1 ?<9.2 ? 19-144 2 ? 9.2-1 3.7 ?34-129 3 ? 10.0- 14.4 ? 32-226 4 ? 10.7- 15.6 ? 58-260 5 ? 11.8- 18.6 ? 44-248 Adults: ?Male ?Female 21-30 Years ?38-523 ? 22-372 31-40 Years ?33-416 ? 17-286 41-50 Years ?16-390 ? <229 51-60 Years ?<298 ? <215 61-70 Years ?<251 ? <128 71-80 Years ?<208 ? <111 81-90 Years ?<106 ? <101 Test performed by [employer] [address] [place] [address], [place] [address] Specimen Anatomical Collection Method Collection Time Receive d Time (Source) Location / / Volume Laterality Blood specimen 02/28/2017 9:29 AM 017 (specimen) EDT 11:50 AM EDT Narrative This result has an attachment that is no t available. Resulting Agency Comment Spec In Lab Bailee Azevedo MD CHEMISTRY ORDERABLES Performing Organization Address City/State/[place] [address] [id number]-[id number] (02/28/2017 9:29 AM EDT) athologist Signature 17-HP-Eso 205 ng/dL [facility] Comment: See scan report Reference Ranges: ng/dL Full-Term Infants: 3 Days: ?<78 1-11 Months (Male): ? Levels increas e after the first week to peak values ranging from 40-200 ng/dL between 30 and 60 days. ??Values then decline to prepubertal range of <91 before one year . 1-11 Months (Female): 13-106 Prepubertal Children: Male 1-10 Years: <91 Females 1-9 Years <91 Puberty: Reilly Stage ? Age ? Range Male 1 ? <9.8 ? 3-90 2 ?9.8 -14.5 ? 5-115 3 ?10. 7-15.4 ? 10-138 4 ?11. 8-16.2 ? 29-180 5 ?12. 8-17.3 ? 24-175 Female 1 ? <9.2 ? 3-82 2 ?9.2 -13.7 ? 11-98 3 ?10. 0-14.4 ? 11-155 4 ?10. 7-15.6 ? 18-230 5 ?11. 8-18.6 ? 20-265 Adults: ? Male: ??27-199 Female (Follicular): ??15-70 ? (Luteal): ??35-290 Test performed by [employer] [address] [place] [address] Specimen Anatomical Collection Method Collection Time Receive d Time (Source) Location / / Volume Laterality Blood specimen 02/28/2017 9:29 AM 017 (specimen) EDT 11:50 AM EDT Narrative This result has an attachment that is no t available. Resulting Agency Comment Spec In Lab Bailee Azevedo MD CHEMISTRY ORDERABLES Performing Organization Address City/State/[place] [address] Testosterone, total and free-Esoterix (02/28/2017 9:29 AM EDT) athologist Signature Testo-Eso 37 ng/dL [facility] Comment: See scan report Reference Ranges: ng/dL Full-term infants: Newborns: Male: ?? 75-400 Female: 20-64 1-7 Months: Male: Levels decrease rapidly the first week to 20-50 ng/dL, then increase to 60-400 ng/dL between 20-60 days. ??Level s then decline to prepubertal range of <2.5-10 by seven months. Female: Levels decrease during the first month to <10 ng/dL and remain there until puberty. Prepubertal children: Males 1-10 Years: <2.5-10 Females 1-9 Years: <2.5-10 Puberty: Reilly Stage ? Age (years) ? Range Male 1 ? <9.8 ?<3-10 2 ?9.8-14 .5 ? 18-150 3 ? 10.7-15. 4 ?100-320 4 ? 11.8-16. 2 ?200-620 5 ? 12.8-17. 3 ?350-970 Female 1 ? <9.2 ?<3-10 2 ?9.2-13 .7 ?7-28 3 ? 10.0-14. 4 ? 15-35 4 ? 10.7-15. 6 ? 13-32 5 ? 11.8-18. 6 ? 20-38 Adults 20-50 Years Male: [phone] Female: ??Premenopausal: ??10-55 ??Postmenopausal: ??7-40 Test performed by [employer] [address] [place] [address] Testo Free-Eso 5.2 pg/mL [facility] Comment: See scan report Reference Ranges: pg/mL ? Male ? Female Full-term infants: 1-15 Days ? 1.5-31 ? 0.5-2.5 1-2 Months ?3.3-18 ? 0.1-1.3 3-4 Months ?0.7-14 ? 0.3-1.1 5-6 Months ?0.4-4.8 ?0.2-0.6 Prepubertal children: 1-10 Years ?0.15-0.6 ? same as males Puberty: comprehensive values for free t estosterone by dialysis for both males and females throughout puberty are curre ntly unavailable. Adults: ?52-280 ?1.1-6.3 Test performed by [employer] [place] [address] %Free Testo-Eso 1.4 % [facility] Comment: See scan report Reference Ranges: % ? Male ?Female Full-term infants: 1-15 Days ? 0.9-1.7 ? 0.8-1.5 1-2 Months ?0.4-0.8 ? 0.4-1.1 3-4 Months ?0.4-1.1 ? 0.5-1.0 5-6 Months ?0.4-1.0 ? 0.5-0.8 Prepubertal children: 1-10 Years ?0.4-0.9 ? Same as males Puberty: Comprehensive values for free t estosterone by dialysis for both males and females throughout puberty are curre ntly unavailable. Adults: ? 1.5-3.2 ? 0.8-1.4 Test performed by [employer] [address] [place] [address] SHBG-Eso 31.8 nmol/L [facility] Comment: See scan report Reference Ranges: nmol/L Infants: 1 Month-23 Months: 60-252 Prepubertal children: 72-220 Pubertal ages: Males: ?? 16-100 Females: 36-125 Adults: Males: ??20-49 Years: ?16-56 ??>49 Years: ?19-76 Females: ??20-49 Years: ?25-122 ??>49 Years: ?17-125 Test performed by [employer] [address] [place] [address] Specimen Anatomical Collection Method Collection Time Receive d Time (Source) Location / / Volume Laterality Blood specimen 02/28/2017 9:29 AM 017 (specimen) EDT 11:50 AM EDT Narrative This result has an attachment that is no t available. Resulting Agency Comment Spec In Lab Bailee Azevedo MD CHEMISTRY ORDERABLES Performing Organization Address City/State/[place] [address] documented in this encounter Visit Diagnoses Diagnosis Polycystic ovarian syndrome Polycystic ovaries documented in this encounter Care Teams Tile Finisher Relationship Specialty Start Date End Date Russell Oneil MD PCP - General 03/29/14 02/22/22 [address] [place] [address] documented as of this encounter
--- OUTSIDE RECORDS SUMMARY | 2022-07-27 10:50 | XMS_ITS | Encounter Summary ---
:2000 Author Organization [facility] [place] [address] Care Team Providers Name Role Phone Russell Oneil MD Primary Care Provider Reason for Visit Reason Comments Acne Encounter Details Date Type Department Care Team Description 09/30/2015 Office Visit Dermatology at [facility] Geovani Cortes MD Acne vulgaris [address] [facility] [address] [place] [address] DERMATOLOGY [phone] [place], [place] [address] (Wo rk) Social History Tobacco Use Types Packs/Day Years Used Date Smoking Tobacco: Never Sex Assigned at Date Recorded Not on file documented as of this encounter Patient Instructions Patient InstructionsCourt Arcos LPN - 09/30/2015 4:30 PM EST Images from the original note were not included. [facility] Acne: After Your Visit Your Care [...] cleanser. Always rinse well. ?? Use an [id number]-[id number] lotion or gel that contains benzoyl peroxide. [...] more? Visit our health information library at [email or web address] You can also view health information on [employer], your personal patient account. Log in or sign up today. Enter V108 in the search box to learn more about Acne: After Your Visit. ?? [phone] [employer]. Care instructions adapted under license by [facility]. This care instruction is for use with your licensed healthcare professional. If you have questionsabout a medical condition or this instruction, always ask your healthcare professional. [employer] disclaims any warranty or liability for your use of this information. Content Version: 10.4.682819; Current as of: November 11, 2013 documented in this encounter Progress Notes Geovani Doyle MD - 09/30/2015 4:40 PM EST Problem: Followup acne vulgaris. Ivon follows up, has now done five months of therapy. She is status post five months of therapy with isotretinoin. She had been tolerating it well but this last month she has had a stomach bug and so did not take her medication. Labs from September 28, 2015 within normal limits with triglycerides being 112. She still has about 15 pills left at home. Assessment and Plan: Acne vulgaris status post five months of Accutane, since the third month she has been on every day dosing because of elevated triglycerides. a. No further prescriptions given today. b. Complete what she has at home then discontinue course. c. No need for further lab testing or further lab visits. d. Congratulated her on the wonderful response, excellent response, no active acne. Return to clinic here p.r.n. for new issues or concerns. COPY: Russell Oneil M.D. documented in this encounter Plan of Treatment Not on filedocumented as of this encounter Visit Diagnoses Diagnosis Acne vulgaris Other acne documented in this encounter Care Teams Audio Visual Equipment Rental Clerk Relationship Specialty Start Date End Date Russell Oneil MD PCP - General 03/29/14 02/22/22 [address] [place] [address] documented as of this encounter
--- OUTSIDE RECORDS SUMMARY | 2022-07-27 10:50 | XMS_ITS | Encounter Summary ---
:2000 Author Organization [facility] [place] [address] Care Team Providers Name Role Phone Russell Oneil MD Primary Care Provider Reason for Visit Reason Comments Follow-up Encounter Details Date Type Department Care Team Description 01/14/2017 Office Visit Pediatric Endocrinology Jaylon Jaquez; [place] [facility] [place] Bernie Chronic pelvic pain in female [facility] [place] [address] PEDIATRIC [phone] ENDOCRINOLOGY [place], [place] [address] Social History Tobacco Use Types Packs/Day Years Used Date Smoking Tobacco: Never Alcohol Use Standard Drinks/Week Comments No 0 (1 standard drink = 0.6 oz pure alcoho l) Sex Assigned at Date Recorded Not on file documented as of this encounter Last Filed Vital Signs Vital Sign Reading Time Taken Comments Blood Pressure 135/73 01/14/2017 10:02 AM EDT Pulse 80 01/14/2017 10:02 AM EDT Temperature - - Respiratory Rate - - Oxygen Saturation - - Inhaled Oxygen Concentration - - Weight 77.7 kg (171 lb 4.8 oz) 01/14/2017 10:02 AM EDT Height 163.2 cm (5' 4.25) 01/14/2017 10:02 AM EDT Body Mass Index 29.17 01/14/2017 10:02 AM EDT Body Mass Index Percentile 94.85 % 01/14/2017 10:02 AM E DT Growth Chart: CDC (Girls, 2-20 Years) documented in this encounter Progress Notes Jaylon Jaquez MD - 01/14/2017 10:00 AM EDT Subjective: Patient ID: Ivon Mcqueen is a 16 y.o. female. HPI Ivon is here with her mother for follow up of hirsutism and possible PCOS. I evaluated her in in and recommended spironolactone therapy based on her symptoms and elevated serum testosterone. Wecould not assess the menstrual cycle because she was taking Depo Provera at the time. The family hadbeen very concerned about chronic abdominal pain that I did not think was related to the PCOS. She was subsequently seen in Pediatric GI and underwent endoscopy. In the interval, Ivon has not had menses. She has not noticed a change in hair growth which is primarily on her chest and linea alba. She occasionally plucks hairs from her chin. She has not had any adverse reactions to the spironolactone. Her weight fell from 78.1 kg in Sep to 76.2 kg in Dec, and was 77.7 kg today yielding a BMI of 29.2. Ivon continues to have abdominal/pelvic pain. Other than the pain and acne, her general health has been quite good. Social History: Lives with both parents and one brother. In 10th grade with good academic performance. Participates in field hockey. Father works from [employer], mother employed as a business affairs manager. Past Medical History, Surgical History, and Family [...] reactive to light. No scleral icterus. Neck: No thyromegaly present. Cardiovascular: Normal rate and regular rhythm. No murmur heard. Pulmonary/Chest: Effort normal. She has no wheezes. Abdominal: Soft. She exhibits no distension and no mass. Genitourinary: No vaginal discharge found. Genitourinary Comments: Not examined Musculoskeletal: She exhibits no edema. Lymphadenopathy: She has no cervical adenopathy. Neurological: She is alert. Skin: Skin is warm. No rash noted. No acanthosis nigricans. 2+ hair on chest and linea alba No facial hair Psychiatric: She has a normal mood and affect. Her behavior is normal. BP 135/73 Pulse 80 Ht 163.2 cm (5' 4.25) Wt 77.7 kg (171 lb 4.8 oz) BMI 29.17 kg/m2 Assessment and Plan: Hirsutism Ivon is not certain that there has been a benefit from the spironolactone, but she is tolerating thetherapy well. I think we should continue therapy for now, but if she begins oral contraceptives we may be able to suppress the testosterone such that she no longer needs androgen blockade. Given that her menses has not recurred after discontinuing the Depo Provera it is quite likely that she has PCOS.I recommended a 14 day course of oral progesterone to see if she has withdrawal bleeding. Mother will contact me after that course is complete. We will then consider the option of starting OCPs or observing to see if spontaneous menses resume. Ivon is not sexually active but has a steady partner. She feels that she could discuss that with her mother when she chooses to have intercourse. She understands that progesterone and spironolactone could be harmful to a developing fetus. Chronic pelvic pain in female According to her mother, Ivon did have some inflammation noted during her endoscopy. The biopsy results from 12/31 do not appear to be diagnostic. They will continue to follow up with Ped GI. documented in this encounter Miscellaneous Notes Assessment & Plan Note - Jaylon Jaquez MD - 02/05/2017 12:24 PM EDT Associated Problem(s): Chronic pelvic pain in female According to her mother, Ivon did have some inflammation noted during her endoscopy. The biopsy results from 12/31 do not appear to be diagnostic. They will continue to follow up with Ped GI. Assessment & Plan Note - Jaylon Jaquez MD - 02/05/2017 12:12 PM EDT Associated Problem(s): Hirsutism Ivon is not certain that there has been a benefit from the spironolactone, but she is tolerating thetherapy well. I think we should continue therapy for now, but if she begins oral contraceptives we may be able to suppress the testosterone such that she no longer needs androgen blockade. Given that her menses has not recurred after discontinuing the Depo Provera it is quite likely that she has PCOS.I recommended a 14 day course of oral progesterone to see if she has withdrawal bleeding. Mother will contact me after that course is complete. We will then consider the option of starting OCPs or observing to see if spontaneous menses resume. Ivon is not sexually active but has a steady partner. She feels that she could discuss that with her mother when she chooses to have intercourse. She understands that progesterone and spironolactone could be harmful to a developing fetus. documented in this encounter Plan of Treatment Not on filedocumented as of this encounter Visit Diagnoses Diagnosis Hirsutism Chronic pelvic pain in female Unspecified symptom associated with fema le genital organs documented in this encounter Care Teams Willow Machine Tender Relationship Specialty Start Date End Date Russell Oneil MD PCP - General 03/29/14 02/22/[address] [place] [address] documented as of this encounter
--- OUTSIDE RECORDS SUMMARY | 2022-07-27 10:50 | XMS_ITS | Encounter Summary ---
:2000 Author Organization [facility] [place] [address] Care Team Providers Name Role Phone Russell Oneil MD Primary Care Provider Reason for Visit Reason Onset Date Comments Results 07/23/2017 Encounter Details Date Type Department Care Team Description 07/23/2017 Telephone Pediatric Gastroenterology at [place] [address] [place] [address] [phone] Social History Tobacco Use Types Packs/Day Years Used Date Smoking Tobacco: Never Smokeless Tobacco: Former Alcohol Use Standard Drinks/Week Comments No 0 (1 standard drink = 0.6 oz pure alcoho l) Sex Assigned at Date Recorded Not on file documented as of this encounter Miscellaneous Notes Telephone Encounter - Carla Mack RN - 07/23/2017 4:11 PM EST Can you please let mo know that her liver test is normal. We will now get US pelvis/RLQ only . Notified mom of result and plan. documented in this encounter Plan of Treatment Not on filedocumented as of this encounter Visit Diagnoses Not on filedocumented in this encounter Care Teams Print Finishing Worker Relationship Specialty Start Date End Date Russell Oneil MD PCP - General 03/29/14 02/22/22 [address] [place] [address] documented as of this encounter
--- OUTSIDE RECORDS SUMMARY | 2022-07-27 10:50 | XMS_ITS | Encounter Summary ---
:2000 Author Organization [facility] [place] [address] Care Team Providers Name Role Phone Russell Oneil MD Primary Care Provider Encounter Details Date Type Department Care Team Description 07/29/2017 Telephone Pediatric Gastroenterology at Jennifer Preston MD [place], [place] [id number] [place], [place] [address] [phone] Social History Tobacco Use Types Packs/Day Years Used Date Smoking Tobacco: Never Smokeless Tobacco: Former Alcohol Use Standard Drinks/Week Comments No 0 (1 standard drink = 0.6 oz pure alcoho l) Sex Assigned at Date Recorded Not on file documented as of this encounter Miscellaneous Notes Telephone Encounter - Natalia Trujillo - 07/29/2017 9:03 AM EST Sent school excuse as requested by mom to [phone] documented in this encounter Plan of Treatment Not on filedocumented as of this encounter Visit Diagnoses Not on filedocumented in this encounter Care Teams Pecan Cleaner Relationship Specialty Start Date End Date Russell Oneil MD PCP - General 03/29/14 02/22/22 8 [place] [address] documented as of this encounter
--- OUTSIDE RECORDS SUMMARY | 2022-07-27 10:50 | XMS_ITS | Encounter Summary ---
:2000 Author Organization [facility] [place] [address] Care Team Providers Name Role Phone Russell Oneil MD Primary Care Provider Reason for Visit Reason Comments Acne Encounter Details Date Type Department Care Team Description 06/23/2015 Office Visit Dermatology at [facility] Geovani Cortes MD Acne vulgaris [address] [facility] [address] [place] [address] DERMATOLOGY [phone] [place], [place] [address] (Wo rk) Social History Tobacco Use Types Packs/Day Years Used Date Smoking Tobacco: Never Sex Assigned at Date Recorded Not on file documented as of this encounter Patient Instructions Patient InstructionsCourt Arcos LPN - 06/23/2015 9:19 AM EDT Images from the original note were not included. [facility] Acne: After Your Visit Your Care Instructions [...] cleanser. Always rinse well. ?? Use an sjkw-vus-wtlaowj lotion or gel that contains benzoyl peroxide. [...] more? Visit our health information library at [email or web address] You can also view health information on [employer], your personal patient account. Log in or sign up today. Enter V108 in the search box to learn more about Acne: After Your Visit. ?? [id number] [place], [place]. Care instructions adapted under license by [facility]. This care instruction is for use with your licensed healthcare professional. If you have questionsabout a medical condition or this instruction, always ask your healthcare professional. [employer] disclaims any warranty or liability for your use of this information. Content Version: 10.4.693817; Current as of: November 11, 2013 documented in this encounter Progress Notes Geovani Doyle MD - 06/23/2015 9:31 AM EDT Problem: Followup acne vulgaris status post two months of isotretinoin. Ivon follows up and tolerated her second month well. There was a week's delay in filling her prescription last month; she has only been through three of the four weeks of therapy since her last visit. She is doing quite well, having a little bit of some back pain. She is also getting some retinoid blushing towards the end of the day. Labs recently obtained were normal except for triglycerides now up to 294, up from last month's level of 157. Physical examination reveals that the patient's acne vulgaris of the lateral cheeks, upper shoulders, and back is now pretty much quiescent. Assessment and Plan: Acne vulgaris, scarring, in a 14-year-old status post two months of isotretinoin. a. Continue Ortho Tri-Cyclen during the course of isotretinoin for acne control/menstrual regulation, but her control for iPledge purposes will be abstinent and none. b. Continue isotretinoin 40 mg one p.o. b.i.d. I will not be able to call this in for her, however, until July 01, 2015, at which time we will also confirm counseling. The iPledge program will be accessed at that time. c. Return to clinic in five weeks from today. We will continue to plan for a five-month course. COPY: Russell Oneil M.D. documented in this encounter Plan of Treatment Not on filedocumented as of this encounter Visit Diagnoses Diagnosis Acne vulgaris Other acne documented in this encounter Care Teams Fishing Tool Technician Oil Well Relationship Specialty Start Date End Date Russell Oneil MD PCP - General 03/29/14 02/22/22 8 [place] [address] documented as of this encounter
--- OUTSIDE RECORDS SUMMARY | 2022-07-27 10:50 | XMS_ITS | Encounter Summary ---
:2000 Author Organization [facility] [place] [address] Care Team Providers Name Role Phone Russell Oneil MD Primary Care Provider Reason for Visit Reason Onset Date Comments Medication Refill 12/17/2016 Encounter Details Date Type Department Care Team Description 12/17/2016 Refill Pediatric Gastroenterology at Jennifer Preston [place] [address] [place] [address] [phone] Social History Tobacco Use Types Packs/Day Years Used Date Smoking Tobacco: Never Sex Assigned at Date Recorded Not on file documented as of this encounter Plan of Treatment Not on filedocumented as of this encounter Visit Diagnoses Not on filedocumented in this encounter Care Teams Webmethods Architect Relationship Specialty Start Date End Date Russell Oneil MD PCP - General 03/29/14 02/22/[address] [place] [address] documented as of this encounter
--- OUTSIDE RECORDS SUMMARY | 2022-07-27 10:50 | XMS_ITS | Encounter Summary ---
:2000 Author Organization [facility] [place] [address] Care Team Providers Name Role Phone Russell Oneil MD Primary Care Provider Encounter Details Date Type Department Care Team Description 02/11/2017 Telephone Pediatric Endocrinology at Jaylon Steven MD [facility] Anh baires PEDIATRIC [place] [address] [place] [address] [phone] (Wo rk) Social History Tobacco Use Types Packs/Day Years Used Date Smoking Tobacco: Never Alcohol Use Standard Drinks/Week Comments No 0 (1 standard drink = 0.6 oz pure alcoho l) Sex Assigned at Date Recorded Not on file documented as of this encounter Miscellaneous Notes Telephone Encounter - Jaylon Jaquez MD - 02/11/2017 3:59 PM EDT I called and left message for family 3:59 PM Telephone Encounter - Jaylon Jaquez MD - 02/11/2017 3:58 PM EDT ----- Message from Madeline Hogan RN sent at 02/11/2017 12:03 PM EDT ----- Contact: mother Ivon finished her 14 day Provera challenge on January 29 and has not had a period. On 02/04 she had one day of brownish discharge with backaches. Ivon thought period might be coming so I told them to call back in a day or two if nothing happened. They called back on 02/06 to state that she had still not started but was with migraine headache. documented in this encounter Plan of Treatment Not on filedocumented as of this encounter Visit Diagnoses Not on filedocumented in this encounter Care Teams Lipcoat Sprayer Relationship Specialty Start Date End Date Russell Oneil MD PCP - General 03/29/14 02/22/22 8 [place] [address] documented as of this encounter
--- OUTSIDE RECORDS SUMMARY | 2022-07-27 10:50 | XMS_ITS | Encounter Summary ---
:2000 Author Organization [facility] [place] [address] Care Team Providers Name Role Phone Russell Oneil MD Primary Care Provider Encounter Details Date Type Department Care Team Description 02/04/2017 Telephone Pediatric Endocrinol ogy at [facility] Madeline Hogan, [place] [address] Social History Tobacco Use Types Packs/Day Years Used Date Smoking Tobacco: Never Alcohol Use Standard Drinks/Week Comments No 0 (1 standard drink = 0.6 oz pure alcoho l) Sex Assigned at Date Recorded Not on file documented as of this encounter Miscellaneous Notes Telephone Encounter - Madeline Hogan RN - 02/04/2017 12:10 PM EDT Mother calling to say that Ivon completed her 14 day Provera challenge on 01/29/17 and started only with some brownish discharge on 02/03. She was having a lot of back pain and cramping. Erin was heard in the background saying that the discharge was turning more red. Advised mother to call back after tomorrow if flow did not progress beyond spotting. documented in this encounter Plan of Treatment Not on filedocumented as of this encounter Visit Diagnoses Not on filedocumented in this encounter Care Teams Scaffold Erector Relationship Specialty Start Date End Date Russell Oneil MD PCP - General 03/29/14 02/22/22 [address] [place] [address] documented as of this encounter
--- OUTSIDE RECORDS SUMMARY | 2022-07-27 10:50 | XMS_ITS | Encounter Summary ---
:2000 Author Organization [facility] [place] [address] Care Team Providers Name Role Phone Russell Oneil MD Primary Care Provider Encounter Details Date Type Department Care Team Description 10/12/2016 Refill Dermatology at [facility] Charo Ramirez, CHAIR AND COUCH MAKER [address] [place] [address] Social History Tobacco Use Types Packs/Day Years Used Date Smoking Tobacco: Never Sex Assigned at Date Recorded Not on file documented as of this encounter Plan of Treatment Not on filedocumented as of this encounter Visit Diagnoses Not on filedocumented in this encounter Care Teams Eyelet Riveter Relationship Specialty Start Date End Date Russell Oneil MD PCP - General 03/29/14 02/22/22 [address] [place] [address] documented as of this encounter
--- OUTSIDE RECORDS SUMMARY | 2022-07-27 10:50 | XMS_ITS | Encounter Summary ---
:2000 Author Organization [facility] [place] [address] Care Team Providers Name Role Phone Russell Oneil MD Primary Care Provider Reason for Visit Reason Onset Date Comments Results 12/17/2016 Encounter Details Date Type Department Care Team Description 12/17/2016 Telephone Pediatric Gastroenterology at Jennifer Preston MD Results [facility] [place] [address] [place] [address] [phone] Social History Tobacco Use Types Packs/Day Years Used Date Smoking Tobacco: Never Sex Assigned at Date Recorded Not on file documented as of this encounter Miscellaneous Notes Telephone Encounter - Danelle Washington RN - 12/17/2016 3:51 PM EDT Reviewed results and plan with Mom. Mom agrees, will do clean out next week when she is on vacation. --- Message from Jennifer Lion MD sent at 12/14/2016 5:52 PM EDT ----- labs look essentially benign. Awaiting celiac screen and poop test . KUB showed moderate amount of stool. Can consider clean out with 10 capfull miralax and 2 exlax. documented in this encounter Plan of Treatment Not on filedocumented as of this encounter Visit Diagnoses Not on filedocumented in this encounter Care Teams Corking Machine Operator Relationship Specialty Start Date End Date Russell Oneil MD PCP - General 03/29/14 02/22/22 [address] [place] [address] documented as of this encounter
--- OUTSIDE RECORDS SUMMARY | 2022-07-27 10:50 | XMS_ITS | Encounter Summary ---
:2000 Author Organization [facility] [place] [address] Care Team Providers Name Role Phone Russell Oneil MD Primary Care Provider Reason for Visit Reason Onset Date Comments Results 03/10/2017 Encounter Details Date Type Department Care Team Description 03/10/2017 Telephone Pediatric Endocrinology at Marek Azevedo, Results [facility] Anh [facility] [place] [address] PEDIATRIC ENDOCRINOLOGY [phone] [place] [address] (Wo rk) Social History Tobacco Use Types Packs/Day Years Used Date Smoking Tobacco: Never Alcohol Use Standard Drinks/Week Comments No 0 (1 standard drink = 0.6 oz pure alcoho l) Sex Assigned at Date Recorded Not on file documented as of this encounter Miscellaneous Notes Telephone Encounter - Bailee Azevedo MD - 03/10/2017 9:14 AM EDT Component Latest Ref Rng & Units 02/28/2017 Total Protein 6.4 - 8.3 gm/dL 7.5 Albumin 3.2 - 5.2 gm/dL 4.1 AST 5 - 30 unit/L 21 ALT 0 - 25 unit/L 55 (H) Alk Phos 55 - 140 unit/L 87 Total Bilirubin <=1.0 mg/dL 0.4 Bili, Direct 0.0 - 0.3 mg/dL 0.1 Chol, Total <=239 mg/dL 189 Triglycerides <=199 mg/dL 99 HDL >=40 mg/dL 48 LDL Cholesterol <=190 mg/dL 121 Chol/HDL Ratio ratio 3.9 Lipid Interpretation See Note Testo-Eso ng/dL 37 Testo, Free-Eso pg/mL 5.2 %Free Testo-Eso % 1.4 SHBG-Eso 36-125 nmol/L 31.8 17-HP-Eso ng/dL 205 DHEAS-Eso 44-248 mcg/dL 285 25-OH Vit D Total 30 - 100 ng/mL 26 (L) TSH 0.27 - 4.20 mlU/ML 2.44 Free T4 0.93 - 1.70 ng/dL 1.05 SHBG sl low and DHEA-S mildly elevated Supports hyperandrogenism associated with PCOS. Discussed starting contraception--family would like to try ortho evra patch. Also recommended taking vit D OTC 6911-5020 IU daily. documented in this encounter Plan of Treatment Not on filedocumented as of this encounter Visit Diagnoses Not on filedocumented in this encounter Care Teams School Bus Driver/Custodian Relationship Specialty Start Date End Date Russell Oneil MD PCP - General 03/29/14 02/22/22 8 [place] [address] documented as of this encounter
--- OUTSIDE RECORDS SUMMARY | 2022-07-27 10:50 | XMS_ITS | Encounter Summary ---
:2000 Author Organization [facility] [place] [address] Care Team Providers Name Role Phone Russell Oneil MD Primary Care Provider Encounter Details Date Type Department Care Team Description 03/29/2014 Office Visit [facility] [place], Canceled ( [address] Michelle Hay MD Cancelled) [place], [place] [address] [facility] [address] [place] [address] [phone] (Wo rk) Social History Tobacco Use Types Packs/Day Years Used Date Smoking Tobacco: Never Assessed Sex Assigned at Date Recorded Not on file documented as of this encounter Plan of Treatment Not on filedocumented as of this encounter Visit Diagnoses Not on filedocumented in this encounter Care Teams Engine Lathe Tender Relationship Specialty Start Date End Date Russell Oneil MD PCP - General 03/29/14 02/22/[address] [place] [address] documented as of this encounter
--- OUTSIDE RECORDS SUMMARY | 2022-07-27 10:50 | XMS_ITS | Encounter Summary ---
:2000 Author Organization [facility] [place] [address] Care Team Providers Name Role Phone Russell Oneil MD Primary Care Provider Encounter Details Date Type Department Care Team Description 12/26/2016 Orders Only Pediatric Gastroenterology Jennifer Lion, Chronic abdominal at [facility] pain [facility] [place] [address] [place] [address] [place] [address] Social History Tobacco Use Types Packs/Day Years Used Date Smoking Tobacco: Never Sex Assigned at Date Recorded Not on file documented as of this encounter Plan of Treatment Scheduled Orders Name Type Priority Associated Diagnoses Order S chedule PEDIATRIC COLONOSCOPY Procedures Routine Chronic abdominal p ain Ordered: 12/26/2016 UPPER GI ENDOSCOPY Procedures Routine Chronic abdominal pain Ordered: 12/26/2016 documented as of this encounter Visit Diagnoses Diagnosis Chronic abdominal pain Abdominal pain, unspecified site documented in this encounter Care Teams Tool Repairer Bench Relationship Specialty Start Date End Date Russell Oneil MD PCP - General 03/29/14 02/22/[address] [place] [address] documented as of this encounter
--- OUTSIDE RECORDS SUMMARY | 2022-07-27 10:50 | XMS_ITS | Encounter Summary ---
:2000 Author Organization [facility] [address] Care Team Providers Name Role Phone Russell Oneil MD Primary Care Provider Reason for Visit Reason Comments Acne Encounter Details Date Type Department Care Team Description 05/23/2015 Office Visit Dermatology at [facility] Geovani Cortes MD Acne vulgaris [address] [facility] [address] [place] [address] DERMATOLOGY [phone] [place], [place] [address] (Wo rk) Social History Tobacco Use Types Packs/Day Years Used Date Smoking Tobacco: Never Sex Assigned at Date Recorded Not on file documented as of this encounter Patient Instructions Patient InstructionsCourt Arcos LPN - 05/23/2015 8:41 AM EDT Images from the original note were not included. [facility] Acne: After Your Visit Your Care Instructions [...] cleanser. Always rinse well. ?? Use an muhg-ali-carsoqm lotion or gel that contains benzoyl peroxide. [...] more? Visit our health information library at [email or web address] You can also view health information on [employer]ingle, your personal patient account. Log in or sign up today. Enter V108 in the search box to learn more about Acne: After Your Visit. ?? [id number] [employer]Circle, Fon. Care instructions adapted under license by [facility]. This care instruction is for use with your licensed healthcare professional. If you have questionsabout a medical condition or this instruction, always ask your healthcare professional. [employer] disclaims any warranty or liability for your use of this information. Content Version: 10.4.703425; Current as of: November 11, 2013 documented in this encounter Progress Notes Geovani Doyle MD - 05/23/2015 8:54 AM EDT Problem: Followup acne vulgaris, status post one month of isotretinoin. Ivon follows up and has tolerated her first month of medication well. She is using Cetaphil emollient lotion for her face and ChapStick for her lips. She denies headaches, musculoskeletal symptoms, or fatigue. She is quite excited about homecoming week and all of the school spirit dress up days that they are going to have this week. Labs from three days ago, on Saturday, were within normal limits with a negative test. Physical examination reveals that the patient's acne vulgaris on the lateral cheeks, upper shoulders, back, which is borderline scarring, is now almost totally quiescent. She has a couple of deep-seated cystic lesions still present on the right submandibular jawline. Assessment and Plan: Acne vulgaris, scarring, in a 14-year-old, status post one month of isotretinoin. a. Continue Ortho Tri-Cyclen during the course of her isotretinoin for acne control/menstrual regulation, but her control for iPLEDGE purposes will be abstinence and none. b. Continue isotretinoin, but advance from 40 mg one p.o. q.day to one p.o. b.i.d.; #60 were given today with zero refills. c. iPLEDGE program was accessed, counseling confirmed. Return to clinic in one month with repeat labs at that time two or three days in advance. We will plan a five-month course. COPY: Russell Oneil M.D. documented in this encounter Plan of Treatment Not on filedocumented as of this encounter Visit Diagnoses Diagnosis Acne vulgaris Other acne documented in this encounter Care Teams Gym Manager Relationship Specialty Start Date End Date Russell Oneil MD PCP - General 03/29/14 02/22/22 [address] [place] [address] documented as of this encounter
--- OUTSIDE RECORDS SUMMARY | 2022-07-27 10:50 | XMS_ITS | Encounter Summary ---
:2000 Author Organization [facility] Address [address] [place] [address] Care Team Providers Name Role Phone Russell Oneil MD Primary Care Provider Reason for Visit Reason Comments Abdominal Pain Consultation (Routine) - Closed Specialty Diagnoses / Referred By Contact Referred To Procedures Contact Pediatric Gastroenterology Diagnoses RLQ pain Russell Oneil MD [facility] [address] [place] [address] [place] [address] Fax: Referral ID Status Reason Start Date Expiration Visits Visits Date Requested Authorized [id number] Closed Connection 10/03/2016 10/03/2017 1 1 Center Encounter Details Date Type Department Care Team Description 12/14/2016 Office Visit Pediatric Amisha, Shova, Chronic abdom inal pain (Primary Dx); [place] [facility] [place]dominal pain, RLQ; [facility] Anh baires [facility] [place] [address] Center [phone] [place] [address] Social History Tobacco Use Types Packs/Day Years Used Date Smoking Tobacco: Never Sex Assigned at Date Recorded Not on file documented as of this encounter Last Filed Vital Signs Vital Sign Reading Time Taken Comments Blood Pressure 127/61 12/14/2016 2:11 PM EDT Pulse 86 12/14/2016 2:11 PM EDT Temperature 36.8 ??C (98.3 ??F) 12/14/2016 2:11 PM EDT Respiratory Rate 11 12/14/2016 2:11 PM EDT Oxygen Saturation - - Inhaled Oxygen Concentration - - Weight 76.2 kg (168 lb) 12/14/2016 2:11 PM EDT Height 161.3 cm (5' 3.5) 12/14/2016 2:11 PM EDT Body Mass Index 29.29 12/14/2016 2:11 PM EDT Body Mass Index Percentile 95.06 % 12/14/2016 2:11 PM ED T Growth Chart: [facility] (Girls, 2-20 Years) documented in this encounter Progress Notes Jennifer Lion MD - 12/14/2016 2:00 PM EDT I saw Ivon Mcqueen 16 y.o. female for outpatient consultation at [facility] at the request of Russell Oneil MD Chief Complaint Patient presents with ??? Abdominal Pain HPI: Ivon is a 16 yrs old female here for initial evaluation of abdominal pain . Pt is here with her mother.is She has been having abdominal pain for [...] Not sexually active. No history of STI. Diet: regular diet Review of previous medical records/labs/images: Cbc/ lft/ lytes/ tsh /lipid panel /hba1c - Normal. Aug 2016 ABD /pelvic US was normal. ROS: 12 point review of systems negative except as stated above Allergies Allergen Reactions ??? Ketamine Patient Active Problem List Diagnosis Code ??? Acne vulgaris L70.0 ??? Eczema L30.9 ??? Hirsutism L68.0 ??? Chronic pelvic pain in female R10.2, G89.29 Family History Problem (# of Occurrences) Relation [...] file ??? Alcohol use Not on file ??? Drug use: Not on file ??? Sexual activity: Not on file Other Topics Concern ??? Not on file Social History Narrative 10 th grade Current Outpatient Prescriptions on File Prior to Visit Medication Sig Dispense Refill ??? cyproheptadine (PERIACTIN) 4 mg Tablet 0 ??? polyethylene glycol (MIRALAX) 17 gram/dose Powder 0 ??? SUMAtriptan (IMITREX) 100 mg Tablet 0 ??? clindamycin (CLEOCIN T) 1 % Solution Apply to face/chest twice daily after washing 60 mL 5 ??? spironolactone (ALDACTONE) 100 mg Tablet Take 1 tablet by mouth 2 times daily. 180 tablet 3 No current facility-administered medications on file prior to visit. Wt Readings from Last 3 Encounters: 12/14/16 76.2 kg (168 lb) (94 %)* 10/01/16 78.1 kg (172 lb 3.2 oz) (95 %)* * Growth percentiles are based on CDC 2-20 Years data. Ht Readings from Last 3 Encounters: 12/14/16 161.3 cm (5' 3.5) (41 %)* 10/01/16 162.8 cm (5' 4.09) (51 %)* * Growth percentiles are based on [facility] 2-20 Years data. Body mass index is 29.29 kg/(m^2). 95 %ile based on CDC 2-20 Years BMI-for-age data using vitals from 12/14/2016. 94 %ile based on CDC 2-20 Years sbfokx-nyf-msh data using vitals from 12/14/2016. 41 %ile based on CDC 2-20 Years skvfoiz-obw-jib data using vitals from 12/14/2016. Vitals: 12/14/16 1411 BP: 127/61 Pulse: 86 Resp: 11 Temp: 36.8 ??C (98.3 ??F) Physical Exam: General appearance: Alert, Active, No acute distress, No pallor, No cyanosis, No icterus HEENT: Normocephalic, atraumatic, No oral sores, No cervical lymphadenopathy CVS: s1 s2 normal, regular rate, rhythm, no murmur RESPI : clear to ascultation b/l, no added sounds ABDOMEN: Soft, right side of the abdomen tender to palpation worse on the right lower quadrant , nondistended, no organomegaly noted, BS present SKIN: No rash EXTREMITY:Normal tone/strength b/l, No clubbing FAMILY AND MARRIAGE COUNSELLOR: No focal neurological deficit GENITAL/PERIANAL INSPECTION: No anal fissures, no skin tags, no fistula A/P: Ivon is a 16 years old female here for initial evaluation of right-sided abdominal pain. Physical exam here today is concerning for right abdominal tenderness. Her growth chart is reassuring. Some of the common causes of abdominal pain like IBS, constipation etc. seems less likely given the localized right lower quadrant pain. Need to consider the possibility of ileitis in the setting of localized right lower quadrant pain awakening up from sleep, though she does not have any other symptoms to suggest IBD diarrhea/bloody stool etc. Plan to get blood work to check for evidence of underlying inflammation and also check fecal calprotectin to test for evidence of gut inflammation. Plan to get an x-ray to check for fecal overload but this is not a typical presentation of a constipated patient. Other potential causes of localized right lower quadrant pain like Yersinia enterocolitis seem less likely here. Recent abdominal ultrasound was normal making ovarian pathology unlikely as well. No urinary symptoms to suggest renal pathology, but I plan to get a urinalysis. Unlikely o have appendicitis given her ongoing symptoms for about a year. I discussed about the possibility of getting colonoscopy to evaluate for terminal ileitis. I discussed with Ivon and her mother about details of getting Colonoscopy evaluation.Chris discussed bowel prep as well. Plan to wait for blood test, poop test urinalysis and potentially get colonoscopy evaluation. Mother in agreement with the plan. Mother will call with any questions and concerns. Diagnoses and all orders for this visit: Chronic abdominal pain - CRP, acute inflammation; Future - CBC (with Diff); Future - Hepatic Function Panel; Future - Sedimentation rate; Future - Tissue transglutaminase, IgA; Future - IgA; Future - Calprotectin; Future - XR Abdomen 1 view (Generic); Future - Urinalysis without microscopic; Future - CRP, acute inflammation - CBC (with Diff) - Hepatic Function Panel - Sedimentation rate - Tissue transglutaminase, IgA - IgA - Urinalysis without microscopic - Hemogram - Differential, Automated Abdominal pain, RLQ Nocturnal pain Thank you for allowing me to participate in the care of Ivon Mcqueen. Please feel free to contact my office at [phone] for further questions and concerns. Sincerely, Jennifer Lion MD documented in this encounter Plan of Treatment Not on filedocumented as of this encounter Procedures Procedure Name Priority Date/Time Associated Comments Diagnosis URINALYSIS WITHOUT Routine 12/14/2016 3:37 PM Chronic abdomina l Results for this MICROSCOPIC EDT pain procedure are i n the results section. CRP, ACUTE Routine 12/14/2016 3:17 PM Chronic abdominal Resu lts for this INFLAMMATION EDT pain procedure are i n the results section. HEMOGRAM Routine 12/14/2016 3:17 PM Chronic abdominal Resu lts for this EDT pain procedure are i n the results section. DIFFERENTIAL, Routine 12/14/2016 3:17 PM Chronic abdominal Res ults for this AUTOMATED EDT pain procedure are i n the results section. TISSUE Routine 12/14/2016 3:17 PM Chronic abdominal Resu lts for this TRANSGLUTAMINASE, IGA EDT pain proced ure are in the results section. SEDIMENTATION RATE Routine 12/14/2016 3:17 PM Chronic abdomina l Results for this EDT pain procedure are i n the results section. CBC (WITH DIFF) Routine 12/14/2016 3:17 PM Chronic abdominal EDT pain IGA Routine 12/14/2016 3:17 PM Chronic abdominal Resu lts for this EDT pain procedure are i n the results section. HEPATIC FUNCTION PANEL Routine 12/14/2016 3:17 PM Chronic abdo brandee Results for this EDT pain procedure are i n the results section. documented in this encounter Results (ABNORMAL) Urinalysis without microscopic (12/14/2016 3:37 PM EDT) [facility] Method Time Signature Glucose UA Negative Negative [facility] mg/dL [facility] Protein UA Negative Negative [facility] mg/dL [facility] Bilirubin UA Negative Negative [facility] mg/dL [facility] Comment: Clinical correlation required for positi ve Urine Bilirubin results as false positive may occur with some drugs and d rug related products. If a false positive is suspected a serum total bili barnard should be considered if clinically indicated. Urobilinogen UA Normal Normal mg/dL [facility] pH UA 6.0 5.0 - 8.0 [facility] Blood UA Negative Negative mg/dL [facility] Ketones UA Negative Negative mg/dL [facility] Nitrite UA Negative Negative [facility] Leukocytes UA Moderate (A) Negative [facility] Appearance UA Hazy (A) Clear [facility] Spec [place] UA 1.011 1.002 - 1.030 [facility] Color UA Yellow Yellow [facility] Specimen Anatomical Collection Method Collection Time Receive d Time (Source) Location / / Volume Laterality Urine specimen 12/14/2016 3:37 PM 017 3:46 (specimen) EDT PM EDT Resulting Agency Comment Spec In Lab Jennifer Lion MD URINE ORDERABLES Performing Organization Address City/State/[place] [address] XR Abdomen 1 view (Generic) (12/14/2016 3:30 PM EDT) Anatomical Region Laterality Modality Abdomen N/A Digital Radiography Specimen (Source) Anatomical Location Collection Method / Collectio n Time Received Time / Laterality Volume Impressions 12/14/2016 4:55 PM EDT 1. ??Nonobstructive bowel gas pattern. 2. ??Moderate fecal load. 3. ??Given reported chronicity of patien t's clinical symptoms, consider more sensitive evaluation by CT. I have personally reviewed the image(s) and the residents interpretation and agree with the findings, Natalia cash 12/14/2016 4:55 PM Narrative 12/14/2016 4:55 PM EDT EXAMINATION: XR ABDOMEN 1 VIEW (GENERIC) CLINICAL HISTORY: RLQ pain, per clinical history in [facility], ongoing right abdominal tenderness in the past year. TECHNIQUE: AP supine views of the abdome n. COMPARISON: Pelvic ultrasound 08/09/16; a bdominal ultrasound 05/13/14; report for right upper quadrant abdominal ultrasoun d dated 11/14/2015, images not available for direct comparison at time of dictati on. FINDINGS: Free air cannot be excluded on supine im aging. Nonobstructive bowel gas pattern. Moderate amount of stool is seen through out the colon. No pathologic intra-abdominal calcifications. No acute osseous findings. ??The visualized lung bases are clear. Procedure Note Natalia Villa MD - 12/14/2016Formatt ing of this note might be different from the original. EXAMINATION: XR ABDOMEN 1 VIEW (GENERIC) CLINICAL HISTORY: RLQ pain, per clinical history in [facility], ongoing right abdominal tenderness in the past year. TECHNIQUE: AP supine views of the abdome n. COMPARISON: Pelvic ultrasound 08/09/16; a bdominal ultrasound 05/13/14; report for right upper quadrant abdominal ultrasoun d dated 11/14/2015, images not available for direct comparison at time of dictati on. FINDINGS: Free air cannot be excluded on supine im aging. Nonobstructive bowel gas pattern. Moderate amount of stool is seen through out the colon. No pathologic intra-abdominal calcifications. No acute osseous findings. The visualized lung bases are clear. IMPRESSION 1. Nonobstructive bowel gas pattern. 2. Moderate fecal load. 3. Given reported chronicity of patient' s clinical symptoms, consider more sensitive evaluation by CT. I have personally reviewed the image(s) and the residents interpretation and agree with the findings, Natalia cash 12/14/2016 4:55 PM Jennifer Lion MD IMG DX ORDERABLES Differential, Automated (12/14/2016 3:17 PM EDT) athologist Signature Neutrophils % 47.7 % [facility] Neutr Abs (ANC) 2.82 1.50 - [facility] 8.00 [facility] x10(3)/[facility] Lymphocytes % 38.9 % [facility] Lymphocytes Abs 2.3 1.2 - 5.[address] [facility] x10(3)/[facility] Monocytes % 11.2 % [facility] Monocyte Abs 0.7 0.2 - 1.[address] [facility] x10(3)/[facility] Eosinophils % 1.5 % [facility] Eosinophils Abs 0.1 0.0 - 0.[address] [facility] x10(3)/[facility] Basophils % 0.5 % [facility] Basophils Abs 0.0 0.0 - 0.[address] [facility] x10(3)/[facility] Immature Gran % 0.20 % [facility] Comment: Immature granulocytes(IG's)percentage an d absolute count will include metamyelocytes, myelocytes, and promyelo cytes. Blood smears from CBCs yielding IG's will be scanned manually for concor dance. If this scan disagrees with the automated IG or if promyelocytes are not ed, a manual differential will be performed. Katty Gran Abs 0.01 0.00 - 0.04 x10(3)/[facility] Specimen Anatomical Collection Method Collection Time Receive d Time (Source) Location / / Volume Laterality Blood specimen 12/14/2016 3:17 PM 017 3:29 (specimen) EDT PM EDT Resulting Agency Comment Spec In Lab Jennifer Lion MD HEMATOLOGY ORDERABLES Performing Organization Address City/State/[place] [address] (ABNORMAL) Hemogram (12/14/2016 3:17 PM EDT) Analysis Performed At Patho logist Time Signature WBC 5.9 4.5 - 13.0 JOSE SARAH x10(3)/[facility] RBC 5.27 (H) 4.10 - JOSE SARAH 5.10 [facility] x10(6)/[facility] Hemoglobin 14.5 12.0 - JOSE SARAH 16.0 gm/dL [facility] Hematocrit 43.0 36.0 - JOSE SARAH 46.0 % [facility] MCV 81.6 76.0 - [facility] SARAH 98.0 [facility] LAB[facility]ORY MCH 27.5 25.0 - JOSE SARAH 35.0 pg [facility] MCHC 33.7 32.0 - JOSE SARAH 36.5 gm/dL [facility] Platelets 289 145 - 370 [facility] x[facility](3[facility] RDWSD 39.0 37.0 - JOSE SARAH 46.0 [facility] LABOR[facility]ORY RDWCV 13.2 0.0 - 14.5 JOSE SARAH % [facility] MPV 9.1 7.6 - 12.9 [facility] SARAH [facility]ORY nRBC % Auto 0.0 % [facility] nRBC Abs Auto 0.000 0.000 - [facility] SARAH 0.000 [facility] x10(3)/[facility] Specimen Anatomical Collection Method Collection Time Receive d Time (Source) Location / / Volume Laterality Blood specimen 12/14/2016 3:17 PM 017 3:29 (specimen) EDT PM EDT Resulting Agency Comment Spec In Lab Jennifer Lion MD HEMATOLOGY ORDERABLES Performing Organization Address City/State/[place] [address] IgA (12/14/2016 3:17 PM EDT) P athologist Signature IgA 213 61 - 348 MinekeySARAH mg/dL [facility] Specimen Anatomical Collection Method Collection Time Receive d Time (Source) Location / / Volume Laterality Blood specimen 12/14/2016 3:17 PM 017 3:29 (specimen) EDT PM EDT Resulting Agency Comment Spec In Lab Jennifer Lion MD IMMUNOLOGY ORDERABLES Performing Organization Address City/[facility]/[place]IP [place] [address] Tissue transglutaminase, IgA (12/14/2016 3:17 PM EDT) athologist [facility] TTG IgA Ab 0.5 0.1 - 10.[address] [facility] u/ml [facility] Comment: Negative = <7 U/mL Equivocal = 7-10 U/mL Positive = >10 U/mL Specimen Anatomical Collection Method Collection Time Receive d Time (Source) Location / / Volume Laterality Blood specimen 12/14/2016 3:17 PM 017 (specimen) EDT 11:32 AM EDT Resulting Agency Comment Spec In Lab Jennifer Lion MD IMMUNOLOGY ORDERABLES Performing Organization Address City/[facility]/[place]IP [place] [address] Sedimentation rate (12/14/2016 3:17 PM EDT) athologist [facility] Sed Rate 9 0 - [address] [facility] mm/hr [facility] Specimen Anatomical Collection Method Collection Time Receive d Time (Source) Location / / Volume Laterality Blood specimen 12/14/2016 3:17 PM 017 3:29 (specimen) EDT PM EDT Resulting Agency Comment Spec In Lab Jennifer Lion MD HEMATOLOGY ORDERABLES Performing Organization Address City/[facility]/ZIP [facility] [place] [address] (ABNORMAL) Hepatic Function Panel (12/14/2016 3:17 PM EDT) athologist [facility] Total Protein 7.8 6.4 - 8.3 [facility] gm/dL [facility] Albumin 4.4 3.2 - 5.2 [facility] SARAH gm/dL [facility] AST 20 5 - 30 JOSE IKNGCOCK unit/L [facility] ALT 27 (H) 0 - 25 JOSE SARAH unit/L [facility] Alk Phos 94 55 - 140 [facility] unit/L [facility] Total 0.5 <=1.0 JOSE SARAH Bilirubin mg/dL [facility] Bili, Direct 0.1 0.0 - 0.3 [facility] SARAH mg/dL [facility] Specimen Anatomical Collection Method Collection Time Receive d Time (Source) Location / / Volume Laterality Blood specimen 12/14/2016 3:17 PM 017 3:30 (specimen) EDT PM EDT Resulting Agency Comment Spec In Lab Jennifer Lion MD CHEMISTRY ORDERABLES Performing Organization Address City/[facility]/ZIP [place] [address] CRP, acute inflammation (12/14/2016 3:17 PM EDT) P athologist Signature CRP 0.6 <=4.9 mg/L [facility] Specimen Anatomical Collection Method Collection Time Receive d Time (Source) Location / / Volume Laterality Blood specimen 12/14/2016 3:17 PM 017 3:30 (specimen) EDT PM EDT Resulting Agency Comment Spec In Lab Jennifer Lion MD CHEMISTRY ORDERABLES Performing Organization Address City/[facility]/ZIP [facility] [place] [address] documented in this encounter Visit Diagnoses Diagnosis Chronic abdominal pain - Primary Abdominal pain, unspecified site Abdominal pain, RLQ Abdominal pain, right lower quadrant Nocturnal pain Chronic abdominal pain Abdominal pain, unspecified site documented in this encounter Care Teams Conceptor Relationship Specialty Start Date End Date Russell Oneil MD PCP - General 03/29/14 02/22/22 8 [place] [address] documented as of this encounter
--- OUTSIDE RECORDS SUMMARY | 2022-07-27 10:50 | XMS_ITS | Encounter Summary ---
:2000 Author Organization [facility] [place] [address] Care Team Providers Name Role Phone Russell Oneil MD Primary Care Provider Encounter Details Date Type Department Care Team Description 08/02/2017 Orders Only Pediatric Gastroenterology at Jennifer Preston MD [facility] [place] [address] [place] [address] [phone] (Wo rk) Social History Tobacco Use Types [...] on filedocumented in this encounter Care Teams Surgery Scheduling Coordinator Relationship Specialty Start Date End Date Russell Oneil MD PCP - General 03/29/14 02/22/22 [address] [place] [address] documented as of this encounter
--- OUTSIDE RECORDS SUMMARY | 2022-07-27 10:50 | XMS_ITS | Encounter Summary ---
:2000 Author Organization [facility] [place] [address] Care Team Providers Name Role Phone Russell Oneil MD Primary Care Provider Reason for Visit Reason Comments Establish Care Consultation (Routine) - Closed Specialty Diagnoses / Procedures Referred By Contact Refer red To Contact Pediatric Endocrinology Diagnoses possible PCOS Fouzia Malhotra, [facility] Pedi Endo 6m Alejandra Marshall [facility] [address] [place] [address] [place] [address] Phone: Fax: Referral ID Status Reason Start Date Expiration Visits Visits Date Requested Authorized [id number] Closed Connection 08/15/2016 08/15/2017 1 1 Center Encounter Details Date Type Department Care Team Description 10/01/2016 Office Visit Pediatric Endocrinology Jaylon Jaquez; at [facility] MD Bernie Chronic pelvic pain in [place] [facility] [address] PEDIATRIC [phone] ENDOCRINOLOGY [place], [place] [address] Social History Tobacco Use Types Packs/Day Years Used Date Smoking Tobacco: Never Sex Assigned at Date Recorded Not on file documented as of this encounter Last Filed Vital Signs Vital Sign Reading Time Taken Comments Blood Pressure 138/71 10/01/2016 3:33 PM EST nervous Pulse 85 10/01/2016 3:33 PM EST Temperature - - Respiratory Rate - - Oxygen Saturation - - Inhaled Oxygen Concentration - - Weight 78.1 kg (172 lb 3.2 oz) 10/01/2016 3:33 PM EST Height 162.8 cm (5' 4.09) 10/01/2016 3:33 PM EST Body Mass Index 29.47 10/01/2016 3:33 PM EST Body Mass Index Percentile 95.41 % 10/01/2016 3:33 PM ES T Growth Chart: [facility] (Girls, 2-20 Years) documented in this encounter Progress Notes Jaylon Jaquez MD - 10/01/2016 3:30 PM EST Subjective: Patient ID: Ivon Mcqueen is a 16 y.o. female. HPI Ivon is here with her mother for consultation regarding possible PCOS at the request of Dr. Ion Malhotra. I reviewed the office notes and interviewed Ivon and her mother. Ivon and her mother have been concerned about her chronic pelvic pain for some time. Mother recalls it being in the right lower quadrant, but Ivon reports it is mid-line today. Although her menses wereregular, OCPs were prescribed due to the recurrent pelvic pain - but there was no relief of the discomfort. The pain occurred at times other than her menses as well. Depo Provera was then prescribed and she is finishing about 1 year. Her menses ceased completely, but the pelvic pain continued to recur. Recent blood work revealed a mildly elevated total testosterone, and Ivon was referred to our center for possible PCOS. She has never had facial hirsutism, but she does have excess hair on her chest and belly. She has had severe acne, and completed a course of Accutane in the summer with good improvement in the acne. She was a normal weight up until age 11 when she had very rapid gain and her BMI has remained at the 90th - 95th percentile since that time. Other than the pain, her general health has been quite good. Social History: Lives with both parents and one brother. In 10th grade with good academic performance. Participates in field hockey. Father works from [employer], mother employed as a peoplesoft business analyst. Past Medical History, Surgical History, and Family History were reviewed and updated in the electronic record. Review of Systems Constitutional: Positive for appetite change. HENT: Negative. Eyes: Negative. Respiratory: Negative. Cardiovascular: Negative. Gastrointestinal: Positive for abdominal pain and nausea. Endocrine: Positive for cold intolerance. Genitourinary: Positive for pelvic pain. Musculoskeletal: Negative. Skin: Negative. Mild active acne with some scarring Neurological: Positive for dizziness. Psychiatric/Behavioral: Negative. Objective: Physical Exam Constitutional: She [...] no wheezes. Abdominal: Soft. She exhibits no mass. There is tenderness (Noted midline, over the bladder. No painin abdominal quadrants). Genitourinary: No vaginal discharge found. Genitourinary Comments: Reilly 5 breast development. Reilly 5 pubic hair. There was no clitorimegaly. Vaginal introitus appeared estrogenized. Musculoskeletal: She exhibits no edema. Lymphadenopathy: She has no cervical adenopathy. Neurological: She is alert. Skin: Skin is warm. No rash noted. No acanthosis nigricans. 2+ hair on chest and linea alba No facial hair Psychiatric: She has a normal mood and affect. Her behavior is normal. BP 138/71 Comment: nervous Pulse 85 Ht 162.8 cm (5' 4.09) Wt 78.1 kg (172 lb 3.2 oz) BMI 29.47 kg/m2 Outside labs: A1c 4.9%, LDL 150, HDL 46. TSH 1.3,FSH 8.4, LH 12 Total testosterone 52 (normal up to 38) Assessment and Plan: Hirsutism Although Ivon may in fact have PCOS, we really can't make that diagnosis with the current data. She does not meet ultrasound criteria. She does have mild hyperandrogenism, but we don't know if she is having anovulatory cycles because she is currently taking Depo-Provera. She is certainly at risk of PCOS with her BMI of 29.5. Ivon said she is not sexually active, and is willing to go off the Depo-Provera. I think that's a good plan because the injections did not relieve her abdominal pain (which is her primary complaint). That should allow us to establish a diagnosis of PCOS. Meanwhile, I think she would benefit from androgen receptor blockade and therefore prescribed spironolactone. I also encouraged her to make lifestyle changes (increased exercise and adjustment of her diet) which will certainly decrease the chance ofdeveloping PCOS, as well as other complications of obesity. Chronic pelvic pain in female Ivon and her mother were very disappointed when I told them that I do not think we can attribute herpelvic pain to her current endocrine issues. Even if she has PCOS, it would not explain that symptom. The US was reassuring, with no evidence of ovarian cyst or abnormal masses. She had negative chlamydia and GC screens by Dr. Malhotra. When Ivon described the pain today, she pointed to the midline, dire ctly over the bladder. I therefore wonder if she is experiencing bladder spasm or some other urologic issue. It would be an unusual location for gastrointestinal involvement. I encouraged them to discuss next steps with Dr. Malhotra. documented in this encounter Miscellaneous Notes Assessment & Plan Note - Jaylon Jaquez MD - 10/14/2016 10:18 AM EST Associated Problem(s): Chronic pelvic pain in female Ivon and her mother were very disappointed when I told them that I do not think we can attribute herpelvic pain to her current endocrine issues. Even if she has PCOS, it would not explain that symptom. The US was reassuring, with no evidence of ovarian cyst or abnormal masses. She had negative chlamydia and GC screens by Dr. Malhotra. When Ivon described the pain today, she pointed to the midline, dire ctly over the bladder. I therefore wonder if she is experiencing bladder spasm or some other urologic issue. It would be an unusual location for gastrointestinal involvement. I encouraged them to discuss next steps with Dr. Malhotra. Assessment & Plan Note - Jaylon Jaquez MD - 10/14/2016 10:10 AM EST Associated Problem(s): Hirsutism Although Ivon may in fact have PCOS, we really can't make that diagnosis with the current data. She does not meet ultrasound criteria. She does have mild hyperandrogenism, but we don't know if she is having anovulatory cycles because she is currently taking Depo-Provera. She is certainly at risk of PCOS with her BMI of 29.5. Ivon said she is not sexually active, and is willing to go off the Depo-Provera. I think that's a good plan because the injections did not relieve her abdominal pain (which is her primary complaint). That should allow us to establish a diagnosis of PCOS. Meanwhile, I think she would benefit from androgen receptor blockade and therefore prescribed spironolactone. I also encouraged her to make lifestyle changes (increased exercise and adjustment of her diet) which will certainly decrease the chance ofdeveloping PCOS, as well as other complications of obesity. documented in this encounter Plan of Treatment Not on filedocumented as of this encounter Visit Diagnoses Diagnosis Hirsutism Chronic pelvic pain in female Unspecified symptom associated with fema le genital organs documented in this encounter Care Teams Winding Inspector And Tester Relationship Specialty Start Date End Date Russell Oneil MD PCP - General 03/29/14 02/22/22 8 [place] [address] documented as of this encounter
--- OUTSIDE RECORDS SUMMARY | 2022-07-27 10:50 | XMS_ITS | Encounter Summary ---
:2000 Author Organization [facility] [place] [address] Care Team Providers Name Role Phone Russell [...] Date Type Department Care Team Description 12/31/2016 Hospital Encounter Gastroenterology at [facility] [place] [address] [place] [address] [place], [place] [address] Social History Tobacco Use Types Packs/Day Years Used Date Smoking Tobacco: Never Alcohol Use Standard Drinks/Week Comments No 0 (1 standard drink = 0.6 oz pure alcoho l) Sex Assigned at Date Recorded Not on file documented as of this encounter Last Filed Vital Signs Vital Sign Reading Time Taken Comments Blood Pressure 112/67 12/31/2016 3:25 PM EDT Pulse 77 12/31/2016 12:46 PM EDT Temperature - - Respiratory Rate 18 12/31/2016 3:25 PM EDT Oxygen Saturation 98% 12/31/2016 3:25 PM EDT Inhaled Oxygen Concentration - - Weight 78.9 kg (174 lb) 12/31/2016 12:46 PM EDT Height 162.6 cm (5' 4) 12/31/2016 12:46 PM EDT Body Mass Index 29.87 12/31/2016 12:46 PM EDT Body Mass Index Percentile 95.62 % 12/31/2016 12:46 PM E DT Growth Chart: [facility] (Girls, 2-20 Years) documented in this encounter Discharge Instructions Discharge InstructionsYane Irene RN - 12/31/2016 2:09 PM EDT UPPER [...] to be checked. Saturday-Saturday Same Day Endo [phone] Otherwise contact [phone] and ask to speak to the property assessment monitor talent acquisition project manager Follow up care is a sylvester part [...] Component Value Ref Test Analysis Performed At [facility] Range Method Time Signature Surgical [id number] ?Location: ; [facility]; [facility] Pathology [place] Report The signing pathologist has (i) examined [...] MD PATHOLOGY/CYTOLOGY ORDERABLE S Performing Organization Address City/[facility]/[place] [address] Specimen to Pathology (surgical or derm) (12/31/2016 2:17 PM EDT) Specimen Anatomical Collection Method Collection Time Receive d Time (Source) Location / / Volume Laterality AP Specimen 12/31/2016 2:17 PM 7 2:17 EDT PM EDT Narrative [facility] - 12/31/2016 2:17 PM EDT Specimen requisition ordered. ??Separate Pathology report to follow Jennifer Lion MD PATHOLOGY/CYTOLOGY ORDERABLE S Performing Organization Address City/[facility] [place] [address] Specimen to Pathology (surgical or derm) (12/31/2016 2:17 PM EDT) Specimen Anatomical Collection Method Collection Time Receive d Time (Source) Location / / Volume Laterality AP Specimen 12/31/2016 2:17 PM 7 2:17 EDT PM EDT Narrative [facility] - 12/31/2016 2:17 PM EDT Specimen requisition ordered. ??Separate Pathology report to follow Jennifer Lion MD PATHOLOGY/CYTOLOGY ORDERABLE S Performing Organization Address [facility]/[place] [address] Specimen to Pathology (surgical or derm) (12/31/2016 2:17 PM EDT) Specimen Anatomical Collection Method Collection Time Receive d Time (Source) Location / / Volume Laterality AP Specimen 12/31/2016 2:17 PM 7 2:17 EDT PM EDT Narrative [facility] - 12/31/2016 2:17 PM EDT Specimen requisition ordered. ??Separate Pathology report to follow Jennifer Lion MD PATHOLOGY/CYTOLOGY ORDERABLE S Performing Organization Address [facility] [place] [address] Specimen to Pathology (surgical or derm) (12/31/2016 2:17 PM EDT) Specimen Anatomical Collection Method Collection Time Receive d Time (Source) Location / / Volume Laterality AP Specimen 12/31/2016 2:17 PM 7 2:17 EDT PM EDT Narrative [facility] - 12/31/2016 2:17 PM EDT Specimen requisition ordered. ??Separate Pathology report to follow Jennifer Lion MD PATHOLOGY/CYTOLOGY ORDERABLE S Performing Organization Address City/[facility] [place] [address] Specimen to Pathology (surgical or derm) (12/31/2016 2:17 PM EDT) Specimen Anatomical Collection Method Collection Time Receive d Time (Source) Location / / Volume Laterality AP Specimen 12/31/2016 2:17 PM 7 2:17 EDT PM EDT Narrative [facility] - 12/31/2016 2:17 PM EDT Specimen requisition ordered. ??Separate Pathology report to follow Jennifer Lion MD PATHOLOGY/CYTOLOGY ORDERABLE S Performing Organization Address City/State/[place]IP [place] [address] UPPER GI ENDOSCOPY (12/31/2016 1:19 PM EDT) [facility] Method Time Signature UPPER GI [facility] ENDOSCOPY Endoscopy Procedure Date: 12/31/2016 1:19 PM ? Patient Name: Ivon Mcqueen ? N: [id number] ? Date of : 2000 ? Age: 16 ? Order #: [id number] ? Instrument Name: [id number] ? Procedure: ? Upper GI endoscopy Indications: ? Abdominal pain in the right upper ? quadrant Providers: ? Jennifer Lion MD, Laura Mcqueen RN, ? Lew Torres MD: ?Russell Oneil MD Complications: ? No immediate complications. Procedure: ? Pre-Anesthesia Assessment: ? - [place] Protocol: ? - Pre-procedure Verification: Prior ? [...] physician, evangelina e nurse ? and the aviation ordnance officer in the en doscopy ? suite. ? [...] Procedure Code(s): ?? --- Professional --- ? 27201, Esophagogastroduodenos copy, ? flexible, transoral; with bio psy, ? single or multiple CPT copyright 2016 [employer]. All rights reserved. The codes documented in this report are preliminary and upon executive assistant review may be revised to meet current compliance requirements. Attending Participation: ? I personally performed the entire procedure. ? Jennifer Lion MD 12/31/2016 2:06:13 PM Number of Addenda: 0 Note Initiated On: 12/31/2016 1:19 PM Specimen (Source) Anatomical Collection Method Collection Time Re ceived Time Location / / Volume Laterality 12/31/2016 1:19 PM EDT Russell Oneil MD GENERAL SURGICAL ORDERABLES Performing Organization Address City/State/ZIP Code Phon e Number [facility] PEDIATRIC COLONOSCOPY (12/31/2016 1:17 PM EDT) Component Value Ref Test Analysis Performed At [facility] Range Method Time Signature Pediatric [facility] Colonoscopy Endoscopy Procedure Date: 12/31/2016 1:17 PM ? Patient Name: Ivon Mcqueen ? Date of : 2000 ? Age: 16 ? Order #: [id number] ? Instrument Name: [id number] ? Procedure: ? Pediatric Colonoscopy Indications: ? Abdominal pain in the right upper ? quadrant Providers: ? Jennifer Lion MD, Laura Mcqueen RN, ? Lew Torres MD: ?Russell Oneil MD Complications: ? No immediate complications. Procedure: ? Pre-Anesthesia Assessment: ? - [place] Protocol: ? - Pre-procedure Verification: Prior ? [...] Procedure Code(s): ?? --- Professional --- ? 66017, Colonoscopy, flexible; with ? biopsy, single or multiple CPT copyright 2016 [employer]. All rights reserved. The codes documented in this report are preliminary and upon executive assistant review may be revised to meet current [...] [facility] documented in this encounter Visit Diagnoses Not on filedocumented in this encounter Active and Recently Administered Medications Times are shown in EDT. Continuous Medication Order 12/29/2016 12/30/2016 12/31/2016 lactated Ringers infusion (CANCELED) 1326 (New Bag - Provider: Danelle Sawyer CRNA)1405 (Anesthesia Volume Adjustment - Provider: Danelle Sawyer CRNA) 100 mL/hr, at 100 mL/hr, Intravenous, CO NTINUOUS, Starting 12/31/16 at 1315, Until Sat12/31/16 at 1525, Endo (Day of Procedure) documented in this encounter Care Teams Recreation Supervisor Relationship Specialty Start Date End Date Russell Oneil MD PCP - General 03/29/14 02/22/22 8 [place] [address] documented as of this encounter
--- OUTSIDE RECORDS SUMMARY | 2022-07-27 10:50 | XMS_ITS | Encounter Summary ---
:2000 Author Organization [facility] [place] [address] Care Team Providers Name Role Phone Russell Oneil MD Primary Care Provider Encounter Details Date Type Department Care Team Description 08/12/2017 Telephone Pediatric Gastroenterology at [place] [address] [place] [phone] Social History Tobacco Use Types Packs/Day Years Used Date Smoking Tobacco: Never Smokeless Tobacco: Former Alcohol Use Standard Drinks/Week Comments No 0 (1 standard drink = 0.6 oz pure alcoho l) Sex Assigned at Date Recorded Not on file documented as of this encounter Miscellaneous Notes Telephone Encounter - Danelle Washington RN - 08/12/2017 12:01 PM EST Reviewed with [facility] normal labs and US. Results for IVON MCQUEEN ( ) as of 08/12/2017 12:01 Ref. Range 07/23/2017 11:00 Total Protein Latest Ref Range: 6.4 - 8.3 gm/dL 7.3 Albumin Latest Ref Range: 3.2 - 5.2 gm/dL 4.2 Total Bilirubin Latest Ref Range: <=1.0 mg/dL 0.3 Bili, Direct Latest Ref Range: 0.0 - 0.3 mg/dL 0.1 Alk Phos Latest Ref Range: 55 - 140 unit/L 64 AST Latest Ref Range: 5 - 30 unit/L 14 ALT Latest Ref Range: 0 - 25 unit/L 9 GGT Latest Ref Range: 5 - 36 unit/L 17 CRP Latest Ref Range: <=4.9 mg/L 3.2 Telephone Encounter - Danelle Washington, RN - 08/12/2017 12:01 PM EST ----- Message from Jennifer Lion MD sent at 08/12/2017 8:43 AM EST ----- Her US is normal as well. ss documented in this encounter Plan of Treatment Not on filedocumented as of this encounter Visit Diagnoses Not on filedocumented in this encounter Care Teams Upholstery Sewer Relationship Specialty Start Date End Date Russell Oneil MD PCP - General 03/29/14 02/22/22 8 [place] [address] documented as of this encounter
--- OUTSIDE RECORDS SUMMARY | 2022-07-27 10:50 | XMS_ITS | Encounter Summary ---
:2000 Author Organization [facility] [place] [address] Care Team Providers Name Role Phone Russell Oneil MD Primary Care Provider Reason for Visit Reason Onset Date Comments Results 12/26/2016 Encounter Details Date Type Department Care Team Description 12/26/2016 Telephone Pediatric Gastroenterology at [place] [address] [place] [address] [phone] Social History Tobacco Use Types Packs/Day Years Used Date Smoking Tobacco: Never Sex Assigned at Date Recorded Not on file documented as of this encounter Miscellaneous Notes Telephone Encounter - Carla Mack RN - 12/26/2016 2:23 PM EDT ----- Message from Jennifer Lion MD sent at 12/26/2016 1:07 PM EDT ----- Regarding: Non urgent Her fecal calprotectin is slightly elevated at 74.Can you check how she is doing. If still symptomatic- probably need to get colonoscopy/egd. If doing clinically better will consider repeating the calprotectin in next few months. Reviewed results with mom and she is still symptomatic and will proceed with [place] and EGD. Reviewed prep with mom documented in this encounter Plan of Treatment Not on filedocumented as of this encounter Visit Diagnoses Not on filedocumented in this encounter Care Teams French Tutor Relationship Specialty Start Date End Date Russell Oneil MD PCP - General 03/29/14 02/22/22 8 [place] [address] documented as of this encounter
--- OUTSIDE RECORDS SUMMARY | 2022-07-27 10:50 | XMS_ITS | Encounter Summary ---
:2000 Author Organization [facility] [place] [address] Care Team Providers Name Role Phone Russell Oneil MD Primary Care Provider Encounter Details Date Type Department Care Team Description 12/14/2016 Hospital Encounter [place] [place] [facility] AmishaJennifer, Chronic abdominal [address] [place] [address] Dr MD [facility] [address] [place] [phone] [place] [id number] Social History Tobacco Use Types Packs/Day Years Used Date Smoking Tobacco: Never Sex Assigned at Date Recorded Not on file documented as of this encounter Medications at Time of Discharge Medication Sig Dispensed Refills Start Date End Date minocycline Take 50 mg by 0 10/03/2016 08/30/2017 (MINOCIN;DYNACIN) 50 mg mouth 2 times Capsule daily. cyproheptadine (PERIACTIN) 0 7 11/04/2020 4 mg Tablet polyethylene glycol 0 09/22/201612/17 (MIRALAX) 17 gram/dose Powder SUMAtriptan (IMITREX) 100 0 10/03/2016 11/04/2020 mg Tablet clindamycin (CLEOCIN T) 1 Apply to 60 mL 5 10/12/2016 07/04/2018 % Solution face/chest twice daily after washing spironolactone (ALDACTONE) Take 1 tablet by 180 tablet 3 11/13/2018 100 mg TabletIndications: mouth 2 times Hirsutism daily. documented as of this encounter Plan of Treatment Not on filedocumented as of this encounter Procedures Procedure Name Priority Date/Time Associated Diagnosis Comme nts XR ABDOMEN 1 VIEW Routine 12/14/2016 3:30 PM Chronic abdominal Results for this EDT pain procedure are i n the results section. documented in this encounter Results XR Abdomen 1 view (Generic) (12/14/2016 3:30 [...] PM Jennifer Lion MD IMG DX ORDERABLES documented in this encounter Visit Diagnoses Diagnosis Chronic abdominal pain Abdominal pain, unspecified site documented in this encounter Care Teams Automotive Service Advisor Relationship Specialty Start Date End Date Russell Oneil MD PCP - General 03/29/14 02/22/22 8 [place] [address] documented as of this encounter
--- OUTSIDE RECORDS SUMMARY | 2022-07-27 10:50 | XMS_ITS | Encounter Summary ---
:2000 Author Organization [facility] [place] [address] Care Team Providers Name Role Phone Russell Oneil MD Primary Care Provider Encounter Details Date Type Department Care Team Description 07/23/2017 Orders Only Pediatric Gastroenterology Jennifer Mace, Right lower quadrant at [facility] abdominal pain [facility] [place] [address] Center [phone] [place] [address] Social History Tobacco Use Types Packs/Day Years Used Date Smoking Tobacco: Never Smokeless Tobacco: Former Alcohol Use Standard Drinks/Week Comments No 0 (1 standard drink = 0.6 oz pure alcoho l) Sex Assigned at Date Recorded Not on file documented as of this encounter Plan of Treatment Not on filedocumented as of this encounter Results US Abdomen Limited (08/02/2017 11:57 AM EST) Anatomical Region Laterality Modality Abdomen Ultrasound Specimen (Source) Anatomical Collection Method Collection Time Re ceived Time Location / / Volume Laterality 08/02/2017 11:38 AM EST Impressions 08/02/2017 12:40 PM EST ??1. ??No evidence of acute cholecystit is. No biliary ductal dilatation.2. ??Normal liver and right kidney.I have personally reviewed the image(s) and e residents interpretation andagree with the Lilian davila at 08/02/2017 12:31 PM ?Lilian burnette MD Electronically Signed Final Report ?? 12:40 pm Narrative 08/02/2017 12:40 PM EST Pediatric Abdomen ? (Signed Final 08/02/2017 12:40 pm) PATIENT INFO: ID #: ? [id number] ?: ??[birth year] (17 yrs) Name: ? IVON MCQUEEN ?Visit Date: 08/02/2017 11:38 am PERFORMED BY: Performed By: ? Suresh Mann RDMS Attending: ?Berlin GOINS, Lilian Bravo Resident: ? Donaldo Chisholm DO Referred By: ?JENNIFER MACE Location: ? [place] SERVICE(S) PROVIDED: ??UABDLIM - Abdominal Limited Survey 2 Organ ?[id number] ??Quadrant - [id number] INDICATIONS: ??RLQ only frequent episodes of lower r t sided ??abd pain. ??Per phone call between Kimberly Edwards and ??ordering MD Jennifer Mace, do RUQ US COMPARISON: No prior studies for comparison. ------ LIVER: ------ Right Lobe Length: ?? 18.4 ?? cm Echogenicity/Echotexture: ?? Normal GALLBLADDER: Cholelithiasis: ?No stones visua lized Wall Thickness: ?2.0 mm Focal Tenderness: ?Negative Goldsmith' s sign BILIARY TRACT: Intrahepatic Ducts: ?? Normal Extrahepatic Ducts: ?? Normal Common Duct Size: ? 1.6 ? mm --------- PANCREAS: --------- Head: ? Poorly visua lized due to overlying bowel Tail: ? Not visualiz ed due to overlying bowel Body: ? Not visualiz ed due to overlying bowel RIGHT KIDNEY: ??Date ? L(cm) ?AP(cm) ?TV(cm) ?Vol ??08/02/17 ? 11.2 Morphology: ? Normal Position: ? Normal Hydronephrosis: ?? No sonographic evide nce AP Diameter Renal Pelvis: ?? 4.1 ?m m ------ AORTA: ------ Measurements (cm): Proximal ? AP: ?? 1.7 Comment: ?Not well visualized due t o overlying bowel gas. ? Normal in caliber whe re visualized ---- IVC: ---- Normal in caliber where visualized ADDITIONAL FINDINGS: No sonographic evidence. Procedure Note Lilian Slade MD - 08/02/2017 Pediatric Abdomen (Signed Final 017 12:40 pm) PATIENT INFO: ID #: [id number] : [birth year] (17 y rs) Name: IVON MCQUEEN Visit Date: 08/02 11:38 am PERFORMED BY: Performed By: Genet Mann RDMS Attending: Lilian Slade MD Resident: Donaldo Chisholm DO Referred By: JENNIFER MACE Location: [place] SERVICE(S) PROVIDED: UABDLIM - Abdominal Limited Survey 2 Or filemon [id number] Quadrant - [id number] INDICATIONS: RLQ only frequent episodes of lower rt sided abd pain. Per phone call between Kimberly Mace do RU US COMPARISON: No prior studies for comparison. ------ LIVER: ------ Right Lobe Length: 18.4 cm Echogenicity/Echotexture: Normal GALLBLADDER: Cholelithiasis: No stones visualized Wall Thickness: 2.0 mm Focal Tenderness: Negative Goldsmith's sig n BILIARY TRACT: Intrahepatic Ducts: Normal Extrahepatic Ducts: Normal Common Duct Size: 1.6 mm --------- PANCREAS: --------- Head: Poorly visualized due to overlyin g bowel Tail: Not visualized due to overlying b owel Body: Not visualized due to overlying b owel RIGHT KIDNEY: Date L(cm) AP(cm) TV(cm) Vol 08/02/17 11.2 Morphology: Normal Position: Normal Hydronephrosis: No sonographic evidence AP Diameter Renal Pelvis: 4.1 mm ------ AORTA: ------ Measurements (cm): Proximal AP: 1.7 Comment: Not well visualized due to ove rlying bowel gas. Normal in caliber where visualized ---- IVC: ---- Normal in caliber where visualized ADDITIONAL FINDINGS: No sonographic evidence. IMPRESSION 1. No evidence of acute cholecystitis. No biliary ductal dilatation.2. Normal liver and right ki dney.I have personally reviewed the image(s) and th e residents interpretation andagree with the findLilian castro at 08/02/2017 12:31 PM Lilian Slade MD Electronically Signed Final Report 08/02 12:40 pm Jennifer Mace MD IMG US GEN ORDERABLES documented in this encounter Visit Diagnoses Diagnosis Right lower quadrant abdominal pain Abdominal pain, right lower quadrant Right lower quadrant abdominal pain Abdominal pain, right lower quadrant documented in this encounter Care Teams Executive Director Of Nursing Relationship Specialty Start Date End Date Russell Oneil MD PCP - General 03/29/14 02/22/[address] [place] [address] (work) documented as of this encounter
--- OUTSIDE RECORDS SUMMARY | 2022-07-27 10:50 | XMS_ITS | Encounter Summary ---
:2000 Author Organization [facility] [address] Care Team Providers Name Role Phone Russell Oneil MD Primary Care Provider Encounter Details Date Type Department Care Team Description 08/02/2017 External Results Pediatric Gastroenterology Jennifer Green MD at [facility] [place] [address] [place] [address] [phone] Social History Tobacco Use Types Packs/Day Years Used Date Smoking Tobacco: Never Smokeless Tobacco: Former Alcohol Use Standard Drinks/Week Comments No 0 (1 standard drink = 0.6 oz pure alcoho l) Sex Assigned at Date Recorded Not on file documented as of this encounter Plan of Treatment Not on filedocumented as of this encounter Procedures Procedure Name Priority Date/Time Associated Diagnosis Comme nts EXTERNAL LAB PEDIATRIC Routine 07/29/2017 Resul ts for this RESULTS PANEL procedure are in the results section . documented in this encounter Results Pediatric External Results (07/29/2017) Narrative This result has an attachment that is no t available. Jennifer Lion MD POINT OF CARE TEST ORDERABLE S documented in this encounter Visit Diagnoses Not on filedocumented in this encounter Care Teams Insecticide Mixer Relationship Specialty Start Date End Date Russell Oneil MD PCP - General 03/29/14 02/22/22 [address] [place], [place] [id number] documented as of this encounter
--- OUTSIDE RECORDS SUMMARY | 2022-07-27 10:50 | XMS_ITS | Encounter Summary ---
:2000 Author Organization [facility] [place] [address] Care Team Providers Name Role Phone Russell Oneil MD Primary Care Provider Reason for Visit Reason Comments Follow-up Encounter Details Date Type Department Care Team Description 07/23/2017 Office Visit Pediatric Endocrinology Roberto Carlos, PCOS (polycystic at [facility] Bailee Muñiz MD ovarian syndrome) [facility] [place] [address] PEDIATRIC [phone] ENDOCRINOLOGY [place], [place] [address] Social History Tobacco Use Types Packs/Day Years Used Date Smoking Tobacco: Never Smokeless Tobacco: Former Alcohol Use Standard Drinks/Week Comments No 0 (1 standard drink = 0.6 oz pure alcoho l) Sex Assigned at Date Recorded Not on file documented as of this encounter Last Filed Vital Signs Vital Sign Reading Time Taken Comments Blood Pressure 131/72 07/23/2017 8:38 AM EST Pulse 75 07/23/2017 8:38 AM EST Temperature 36.7 ??C (98.1 ??F) 07/23/2017 8:38 AM EST Respiratory Rate 18 07/23/2017 8:38 AM EST Oxygen Saturation 100% 07/23/2017 8:38 AM EST Inhaled Oxygen Concentration - - Weight 73.2 kg (161 lb 6 oz) 07/23/2017 8:38 AM EST Height 162.7 cm (5' 4.06) 07/23/2017 8:38 AM EST Body Mass Index 27.65 07/23/2017 8:38 AM EST Body Mass Index Percentile 92.03 % 07/23/2017 8:38 AM ES T Growth Chart: CDC (Girls, 2-20 Years) documented in this encounter Progress Notes Bailee Azevedo MD - 07/23/2017 8:30 AM EST Subjective: Patient ID: Ivon Mcqueen is a 17 y.o. female, here for follow up of PCOS. She was initially evaluated 12/2016. She had mildly elevated DHEA-S and sl low SHBG. She last had metabolic screen 03/2017 and was last seen 4 months ago. HPI In the interim, she was started on ortho evra patch. Menses: started ortho evra 03/2017 [] Yes [x] No Irregular--now having menses regularly. Not always same week, but roughly in same 2 weeks. Duration 3-5 days [x] Yes [] No Dysmenorrhea---can be painful, advil and tylenol--takes them when pain is at its height. Hirsutism--spironolactone 100 mg BID [x] Yes [] No Location(s): cheek, chin, underneath jawline, linea alba [x] Yes [] No Bothersome, but some improvement. Hair on chest does not come back as often [x] Yes [] No Hair removal: plucks, takes longer to grow back Acne--used to use clindamycin, but dried face. Rx from dermatology. They have not seen derm in 1 year. Uses bhutanese spring soap to wash face [x] Yes [] No Location(s): back, face, chest; still getting deeper ones on cheek [x] Yes [] No Bothersome Lifestyle modifications: Weight loss (15 pounds) has been noted. Nutrition/Activity Assessment: Athletic Activities/Gym in school: Hours of Activity/day: has been more active--working with horses, going for walks Screen Time/day: Sleep hr/per night: Milk: Juice: Soda Pop: Sports or Power Drinks: Veggies/Fruits: Snacks: less snacking Breakfast: Lunch: Dinner: Eat out: Fried foods: Portions: eating smaller portions Social History: Lives with both parents and one brother. Just finished 10th grade with good academicperformance. Participates in field hockey. Father works from [employer], mother employed as a business office technology instructor. Past Medical History, Surgical History, and Family History were reviewed and updated in the electronic record. Review of Systems Constitutional: Negative. HENT: Negative. Eyes: Negative. Respiratory: Negative. Cardiovascular: Negative. Gastrointestinal: Positive for abdominal pain (not as bad as last time, still RUQ. seeing GI today). Endocrine: Negative. Genitourinary: Positive for pelvic pain. Musculoskeletal: Negative. Skin: Positive for rash. Mild active acne with some scarring Neurological: Negative. Psychiatric/Behavioral: Negative. Objective: BP 131/72 Pulse 75 Temp 36.7 ??C (98.1 ??F) Resp 18 Ht 162.7 cm (5' 4.06) Wt 73.2 kg (161 lb 6 oz) SpO2 100% BMI 27.65 kg/m2 --> 92 %ile based on CDC 2-20 Years BMI-for-age data using vitals from 07/23/2017. --> Blood pressure percentiles are 97 % systolic and 70 % diastolic based on NHBPEP's 4th Report.Blood pressure percentile targets: 90: 125/80, 95: 129/84, 99 + 5 mmH/97. --> No LMP recorded. --> Growth velocity [...] Her behavior is normal. Assessment and Plan: MAURY Del Valle has been doing well since our last visit, with significant weight loss and improvement in hirsutism, acne. Her menses continue to cause dysmenorrhea, but she will be trying pain abortive therapy before the pain becomes severe. We commended her on her efforts to maintain weight. Continue current ortho evra patch (generic), 200 mg of spironolactone. Recommended that she stop using Albanian Spring soap, and switch to a gentler, unscented cleanser for her face. Because she continues to have bothersomeacne, suggested she return to dermatology to discuss stronger topical options. Follow up in 6 months. Bailee Azevedo MD Attending Physician Pediatric Endocrinology [facility] Office: [phone] [place] Office: [phone] Pager ID [phone] documented in this encounter Plan of Treatment Not on filedocumented as of this encounter Visit Diagnoses Diagnosis PCOS (polycystic ovarian syndrome) Polycystic ovaries documented in this encounter Care Teams Hand Cloth Folder Relationship Specialty Start Date End Date Russell Oneil MD PCP - General 03/29/14 02/22/22 [address] [place] [address] documented as of this encounter
--- OUTSIDE RECORDS SUMMARY | 2022-07-27 10:50 | XMS_ITS | Encounter Summary ---
:2000 Author Organization [facility] [place] [address] Care Team Providers Name Role Phone Russell Oneil MD Primary Care Provider Encounter Details Date Type Department Care Team Description 12/14/2016 Telephone Pediatric Gastroenterology [place] [address] [place] [address] [phone] Social History Tobacco Use Types Packs/Day Years Used Date Smoking Tobacco: Never Sex Assigned at Date Recorded Not on file documented as of this encounter Miscellaneous Notes Telephone Encounter - Carla Mack RN - 12/14/2016 5:05 PM EDT MOm asking for information on gluten free diet. Reviewed with mom and gave her resources. documented in this encounter Plan of Treatment Not on filedocumented as of this encounter Visit Diagnoses Not on filedocumented in this encounter Care Teams Engineering And Scientific Programmer Relationship Specialty Start Date End Date Russell Oneil MD PCP - General 03/29/14 02/22/22 [address] [place] [address] documented as of this encounter
--- OUTSIDE RECORDS SUMMARY | 2022-07-27 10:50 | XMS_ITS | Encounter Summary ---
:2000 Author Organization [facility] [place] [address] Care Team Providers Name Role Phone Russell Oneil MD Primary Care Provider Reason for Visit Reason Comments Acne Encounter Details Date Type Department Care Team Description 08/01/2015 Office Visit Dermatology at [facility] Geovani Cortes MD Acne vulgaris [address] [facility] [address] [place] [address] DERMATOLOGY [phone] [place], [place] [address] (Wo rk) Social History Tobacco Use Types Packs/Day Years Used Date Smoking Tobacco: Never Sex Assigned at Date Recorded Not on file documented as of this encounter Patient Instructions Patient InstructionsCourt Arcos LPN - 08/01/2015 3:17 PM EST Images from the original note were not included. [facility] Acne: After Your Visit Your Care Instructions [...] cleanser. Always rinse well. ?? Use an tddo-bay-dhyrqtm lotion or gel that contains benzoyl peroxide. [...] more? Visit our health information library at [email or web address] You can also view health information on [employer], your personal patient account. Log in or sign up today. Enter V108 in the search box to learn more about Acne: After Your Visit. ?? [phone] [employer]. Care instructions adapted under license by [facility]. This care instruction is for use with your licensed healthcare professional. If you have questionsabout a medical condition or this instruction, always ask your healthcare professional. [employer] disclaims any warranty or liability for your use of this information. Content Version: 10.4.936563; Current as of: November 11, 2013 [facility] Acne: After Your Visit Your Care Instructions [...] cleanser. Always rinse well. ?? Use an brue-iye-rfwfpfo lotion or gel that contains benzoyl peroxide. [...] more? Visit our health information library at [email or web address] You can also view health information on [employer], your personal patient account. Log in or sign up today. Enter V108 in the search box to learn more about Acne: After Your Visit. ?? [phone] [employer]. Care instructions adapted under license by [facility]. This care instruction is for use with your licensed healthcare professional. If you have questionsabout a medical condition or this instruction, always ask your healthcare professional. [employer] disclaims any warranty or liability for your use of this information. Content Version: 10.4.216315; Current as of: November 11, 2013 documented in this encounter Progress Notes Geovani Doyle MD - 08/01/2015 3:22 PM EST Problem: Followup acne vulgaris status post three months of isotretinoin. Ivon follows up today with her father, Malik. She tolerated her third month well. She is not really complaining of any issues. Labs show that her drug triglycerides have continued to rise, the first month 157, last month 294, and this month they were up to 481. Physical examination shows good control of the patient's acne of the face, cheeks, upper shoulders, back being essentially quiescent. The patient is now 15. Assessment and Plan: Acne vulgaris, scarring, in a 15-year-old status post three months of isotretinoin. a. Continue Ortho Tri-Cyclen during course of isotretinoin for acne control/menstrual regulation, but her control for iPLEDGE purposes will be abstinence and none. b. Hold isotretinoin for one week, then resume at just 40 mg one p.o. q.day. [facility] [place]. Confirm counseling. Reviewed iPLEDGE program with them. c. Return to clinic in another one month for repeat check. Check isotretinoin labs again two or three days before that visit. COPY: Russell Oneil M.D. documented in this encounter Plan of Treatment Not on filedocumented as of this encounter Visit Diagnoses Diagnosis Acne vulgaris Other acne documented in this encounter Care Teams Scissors Sharpener Relationship Specialty Start Date End Date Russell Oneil MD PCP - General 03/29/14 02/22/22 [address] [place] [id number] documented as of this encounter
--- OUTSIDE RECORDS SUMMARY | 2022-07-27 10:53 | XMS_ITS | Continuity of Care Document ---
:2000 Author Organization [facility] Address [address] [place] [address] Care Team Providers Name Role Phone Cass Mary Primary Care Physician Unavailable Encounter [facility] NBR [id number] Date(s): 06/14/22 - 06/14/22 [facility] [address] [place] [address]- us Assessment and Plan Future AppointmentsAppointment Date:07/03/2022 03:00:00 PM Scheduled Provider: [facility] Appointment Type:Home Sleep Study Medications Advair Diskus 100 mcg-50 mcg inhalation powder 0 Refill(s) Start Date: 06/13/22 Status: Orderedalbuterol 0 Refill(s) Start Date: 06/13/22 Status: Orderedfamotidine 10 mg oral tablet 0 Refill(s) Start Date: 06/13/22 Status: OrderedMiraLax 0 Refill(s) Start Date: 06/13/22 Status: Ordered Procedures Procedure Date Related Diagnosis Body Site Status Arthroscopic knee procedure1 Completed Arthroscopy of wrist2 Comple bertha 1x22x2 Patient Care team information PersonnelName: Cass Mary
== END 2022-07-27 10:46 | disposition home or self-care (01) ==
LOC: ER 10:46
PROVIDERS: Emergency Provider Physician Assistant; PCP Physician Assistant Medical
DX: F41.9 Anxiety disorder, unspecified (principal); F41.0 Panic disorder [episodic paroxysmal anxiety]
CPT/HCPCS: 99283